=== PATIENT | male | born 1930 | race Caucasian/White ===

== ENCOUNTER 2017-06-12 20:56 | Emergency (ER) | payer MEDICARE ==
--- NOTE | 2017-06-12 22:45 | ED ---
Head Injury - HPI Summary HPI Summary: 87-year-old male presents with head injury today. states that he was a going to close the door and he stumbled and struck his head on the glass window near door. He is on Xarleto. No loss conscious. No nausea and vomiting. No change in vision. No neck pain. No other injury. He had a couple drinks tonight. He normally has an unsteady gait. states he has been acting appropriately. He denies any chest pain or shortness breath. He denies any hip pain. The ambulance was called to get him off the floor because could not lift him off the floor. He has some abrasions to his forehead that were bleeding. He has a large contusion to his forehead. - History Of Current Complaint Chief Complaint: EDHeadInjury Stated Complaint: FALL/HEAD INJURY Time Seen by Provider: 06/12/17 21:37 Pain Intensity: 2 - Allergies/Home Medications Allergies/Adverse Reactions: Allergies Allergy/AdvReac Type Severity Reaction Status Date / Time pravastatin Allergy See Comment Verified 06/12/17 21:02 scallops Allergy Severe Vomiting Uncoded 03/10/16 14:44 PMH/Surg Hx/FS Hx/Imm Hx Endocrine/Hematology History: Reports: Hx Anticoagulant Therapy - Xarelto, Hx Diabetes - Type II; well controlled on medications Cardiovascular History: Reports: Hx Coronary Artery Disease, Hx Pacemaker/ICD, Other Cardiovascular Problems/Disorders - History of DVT's; Heart Disease ( Myopathy) Denies: Hx Angina, Hx Hypercholesterolemia, Hx Hypertension, Hx Myocardial Infarction, Hx Valvular Heart Disease Respiratory History: Reports: Hx Sleep Apnea - current CPAP user, compliant Denies: Hx Asthma, Hx Chronic Obstructive Pulmonary Disease (COPD) History: Reports: Hx Benign Prostatic Hyperplasia Denies: Hx Dialysis, Hx Renal Disease Musculoskeletal History: Reports: Hx Arthritis Sensory History: Reports: Hx Contacts or Glasses, Hx Hearing Aid Opthamlomology History: Reports: Hx Contacts or Glasses - Surgical History Surgery Procedure, Year, and Place: Pacemaker; Bilateral Cataract; Coronary Angiogram; Tonsillectomy Infectious Disease History: No Infectious Disease History: Denies: Traveled Outside the [place] in Last 30 Days - Social History Alcohol Use: Daily Alcohol Amount: 3 glass of wine Substance Use Type: Reports: None Smoking Status (MU): Former Smoker Review of Systems Negative: Fever Negative: Chest Pain Negative: Shortness Of Breath Positive: Headache All Other Systems Reviewed And Are Negative: Yes Physical Exam Triage Information Reviewed: Yes Vital Signs On Initial Exam: Initial Vitals Temp Pulse Resp BP Pulse Ox 98.3 F 81 16 122/58 99 06/12/17 20:59 06/12/17 20:59 06/12/17 20:59 06/12/17 20:59 06/12/17 20:59 Vital Signs Reviewed: Yes Appearance: Positive: Well-Appearing Skin: Positive: Warm, Dry, Other - Hematoma to left side of head, small abrasions to forehead Head/Face: Positive: Normal Head/Face Inspection, Other - Raccoon eyes, ley sign Eyes: Positive: Normal, EOMI, RAISA, Conjunctiva Clear ENT: Positive: Normal ENT inspection, Pharynx normal, TMs normal Respiratory/Lung Sounds: Positive: Clear to Auscultation, Breath Sounds Present Cardiovascular: Positive: Normal, RRR Abdomen Description: Positive: Nontender, Soft Bowel Sounds: Positive: Present Neurological: Positive: Sensory/Motor Intact, Alert, Oriented to Person Place, Time, CN Intact II-III, Finger to Nose - Gail Coma Scale Best Eye Response: 4 - Spontaneous Best Motor Response: 6 - Obeys Commands Best Verbal Response: 5 - Oriented Coma Scale Total: 15 Diagnostics - Vital Signs Vital Signs Temp Pulse Resp BP Pulse Ox 06/12/17 20:59 98.3 F 81 16 122/58 99 - Laboratory Lab Statement: Any lab studies that have been ordered have been reviewed, and results considered in the medical decision making process. - CT head CT Interpretation: No Acute Changes - No hemorrhage frontal scalp hematoma CT Interpretation Completed By: Radiologist neck CT Interpretation: No Acute Changes CT Interpretation Completed By: Radiologist Head Injury Course/Dx Course Of Treatment: 87-year-old male presents with head injury today. states that he was a going to close the door and he stumbled and struck his head on the glass window near door. He is on Xarleto. No loss conscious. No nausea and vomiting. No change in vision. No neck pain. No other injury. He had a couple drinks tonight. He normally has an unsteady gait. states he has been acting appropriately. He denies any chest pain or shortness breath. He denies any hip pain. The ambulance was called to get him off the floor because could not lift him off the floor. He has some abrasions to his forehead that were bleeding. He has a large contusion to his forehead. On exam has hematoma to forehead. Has small abrasions that are oozing. Clean area and place glued on the abrasions. Normal neuro exam. CT brain normal except for hematoma of scalp. Neck normal. We'll have follow-up with primary. Patient understands agrees with plan. - Diagnoses Differential Diagnosis/HQI/PQRI: Concussion Without LOC, Contusion, Intracranial Bleed, Skull Fracture Provider Diagnoses: Head injury, Hematoma of frontal scalp, Fall Discharge - Sign-Out/Discharge Documenting (check all that apply): Discharge - Discharge Plan Condition: Good Disposition: HOME Patient Education Materials: Head Injury (ED) Referrals: Millie Villeda MD [Primary Care Provider] - Additional Instructions: Place ice on area as needed Take Tylenol for headache every 6 hours as needed Follow up with primary within 5 days Return to ED if develop any new or worsening symptoms - Billing Disposition and Condition Condition: GOOD Disposition: HOME
[2017-06-12 23:25] VITALS: BP 123/72
--- NOTE | 2017-06-13 11:19 | RAD ---
Indication: Fall with head injury. Comparison: October 04, 2014 Technique: Noncontrast CT vertex of skull through foramen magnum. Report: Moderate prominence of the cerebral sulci. Proportional enlargement of the ventricles. Patent basal cisterns. 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 Small chronic lacunar infarct involving the LEFT caudate body. Negative for hoover matter white matter obscuration, intra or extra-axial hemorrhage, or mass effect. Small LEFT frontal scalp hematoma. Negative for calvarial or skull base fracture or suspicious focal osseous lesions. Clear paranasal sinuses and mastoid air spaces. IMPRESSION: 1. Small LEFT frontal scalp hematoma. No CT evidence for traumatic brain injury. 2. Involutional change and stigmata of chronic small vessel ischemic disease. Small chronic lacunar infarct involving the LEFT caudate body.
--- NOTE | 2017-06-13 11:26 | RAD ---
INDICATION: Fall. Head injury. COMPARISON: No relevant prior exams available on the [facility] PACS for comparison. TECHNIQUE: Multidetector CT images foramen magnum to lung apices without contrast. Multiplanar reformation. REPORT: 2.0 cm hypodense LEFT thyroid lobe nodule. Normal vertebral alignment accounting for exam positioning without spondylolisthesis or subluxation at any level. Negative for cervical vertebral body or posterior element fracture. Negative for paravertebral hematoma. Multilevel degenerative spondylosis and facet joint osteoarthritis. At C2-C3 uncinate process spurring and facet joint osteoarthritis results in mild RIGHT foraminal stenosis. At C3-C4 there is 1.5 mm degenerative anterolisthesis. Uncinate process spurring and facet joint osteoarthritis results in mild RIGHT and severe LEFT foraminal stenosis. At C4-C5 dorsal disc osteophyte complex results in mild impression on the ventral margin of the thecal sac. Uncinate process spurring and facet joint osteoarthritis results in mild RIGHT and severe LEFT foraminal stenosis. At C5-C6 disc space narrowing is severe. Dorsal disc osteophyte complex results in mild impression on the ventral margin of the thecal sac. Uncinate process spurring and facet joint osteoarthritis results in moderately severe RIGHT foraminal stenosis. At C6-C7 disc space narrowing is severe. Uncinate process spurring and facet joint osteoarthritis results in mild RIGHT and slight LEFT foraminal stenosis. IMPRESSION: 1. No CT evidence for traumatic cervical spine injury. 2. 2.0 cm LEFT thyroid lobe nodule. If not previously performed consider nonemergent follow-up thyroid ultrasound for further characterization. There is no prior thyroid ultrasound on the [facility] PACS.
--- NOTE | 2017-06-14 09:32 | ED ---
Progress - Progress Note Progress Note: Patient's final CT report for cervical spine without contrast reveals incidental finding of a "2 cm left thyroid lobe nodule. If not previously performed consider nonemergent follow-up thyroid ultrasound for further characterization. There is no prior thyroid ultrasound on the [facility]ACS". It does not appear this was discussed during patient's ED visit. Phone call placed and spoke w/ , Janice, listed as person to notify. She reports patient is hard of hearing so relayed update to her. She states she will contact patient's PCP, Dr. Villeda, today to schedule appointment for follow- up. Admits has been has been doing fine since home w/ head injury. No further action at this time. Course/Dx - Course Course Of Treatment: 87-year-old male presents with head injury today. states that he was a going to close the door and he stumbled and struck his head on the glass window near door. He is on Xarleto. No loss conscious. No nausea and vomiting. No change in vision. No neck pain. No other injury. He had a couple drinks tonight. He normally has an unsteady gait. states he has been acting appropriately. He denies any chest pain or shortness breath. He denies any hip pain. The ambulance was called to get him off the floor because could not lift him off the floor. He has some abrasions to his forehead that were bleeding. He has a large contusion to his forehead. On exam has hematoma to forehead. Has small abrasions that are oozing. Clean area and place glued on the abrasions. Normal neuro exam. CT brain normal except for hematoma of scalp. Neck normal. We'll have follow-up with primary. Patient understands agrees with plan. - Diagnoses Provider Diagnoses: Head injury, Hematoma of frontal scalp, Fall Discharge - Sign-Out/Discharge Documenting (check all that apply): Post-Discharge Follow Up - Discharge Plan Condition: Good Disposition: HOME Patient Education Materials: Head Injury (ED) Referrals: Millie Villeda MD [Primary Care Provider] - Additional Instructions: Place ice on area as needed Take Tylenol for headache every 6 hours as needed Follow up with primary within 5 days Return to ED if develop any new or worsening symptoms - Billing Disposition and Condition Condition: GOOD Disposition: HOME
== END 2017-06-12 23:29 | disposition home or self-care (01) ==
LOC: ED 20:56
DX: S09.90XA Unspecified injury of head, initial encounter (principal); S00.93XA Contusion of unspecified part of head, initial encounter; E04.1 Nontoxic single thyroid nodule; W18.00XA Striking against unspecified object with subsequent fall, initial encounter; Y93.9 Activity, unspecified; Y92.9 Unspecified place or not applicable; Z79.01 Long term (current) use of anticoagulants
CPT/HCPCS: 70450; 72125; 99282

== ENCOUNTER 2019-01-22 17:43 | Emergency (ER) | payer MEDICARE ==
--- NOTE | 2019-01-22 18:25 | ED ---
Neurological HPI - HPI Summary HPI Summary: 88 year old M brought in by EMS to [facility] complains of worsening weakness, unsteady gait, and fatigue for several days per . No dizziness, syncope, pain. The patient rates the pain 0/10 in severity. Symptoms aggravated by nothing. Symptoms alleviated by nothing. Per nurse, patient states patient retired 2 years ago and has since been sleeping around 21:00 every night, waking up at 14:00 the next day, and drinking 6 oz wine around 17:00 daily and has been more fatigued. She thinks this has been gradual and there is nothing acute today. She decided to bring him to ED for repeated falls. 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 Onset/Duration: Started days ago, Still Present Timing: Constant Current Severity: None Pain Intensity: 0 Pain Scale Used: 0-10 Numeric Aggravating: Nothing Alleviating: Nothing Associated Signs and Symptoms: Positive: Negative - dizziness, syncope, pain - Allergy/Home Medications Allergies/Adverse Reactions: Allergies Allergy/AdvReac Type Severity Reaction Status Date / Time pravastatin Allergy See Comment Verified 01/22/19 18:43 scallops Allergy Severe Vomiting Uncoded 01/22/19 18:43 Home Medications: Home Medications Aspirin 81 mg CHEW TAB* [Aspirin Low Dose TAB*] 81 mg PO DAILY 01/22/19 [ History Confirmed 01/22/19] PMH/Surg Hx/FS Hx/Imm Hx Endocrine/Hematology History: Reports: Hx Anticoagulant Therapy - Xarelto, Hx Diabetes Denies: Hx Anemia Cardiovascular History: Reports: Hx Coronary Artery Disease, Hx Pacemaker/ICD, Other Cardiovascular Problems/Disorders - History of DVT's; Heart Disease ( Myopathy) Denies: Hx Angina, Hx Hypercholesterolemia, Hx Hypertension, Hx Myocardial Infarction, Hx Valvular Heart Disease Respiratory History: Reports: Hx Sleep Apnea - current CPAP user, compliant Denies: Hx Asthma, Hx Chronic Obstructive Pulmonary Disease (COPD) GI History: Denies: Hx Jaundice History: Reports: Hx Benign Prostatic Hyperplasia Denies: Hx Dialysis, Hx Renal Disease Musculoskeletal History: Reports: Hx Arthritis Sensory History: Reports: Hx Contacts or Glasses, Hx Hearing Aid Opthamlomology History: Reports: Hx Contacts or Glasses - Surgical History Surgery Procedure, Year, and Place: Pacemaker; Bilateral Cataract; Coronary Angiogram; Tonsillectomy Infectious Disease History: No Infectious Disease History: Denies: Traveled Outside the [place] in Last 30 Days - Family History Known Family History: Positive: Cardiac Disease - [place], Other - Parkinson's, CVA - Social History Alcohol Use: Daily Alcohol Amount: 2 glasses of wine Substance Use Type: Reports: None Smoking Status (MU): Former Smoker Review of Systems Positive: Fatigue Neurological: Negative - Dizziness, Other - unsteady gait Positive: Weakness. Negative: Syncope All Other Systems Reviewed And Are Negative: Yes Physical Exam - Summary Physical Exam Summary: Constitutional: Elderly, Alert. (-) Distressed Skin: Warm, Dry HENT: Normocephalic; Atraumatic Eyes: Conjunctiva normal Neck: Musculoskeletal ROM normal neck. (-) JVD, (-) Nuchal rigidity Cardio: Rhythm regular, rate normal, Heart sounds normal; Intact distal pulses; Radial pulses are 2+ and symmetric. (-) Murmur Pulmonary/Chest wall: Effort normal. (-) Respiratory distress, (-) Wheezes, (-) Rales, Pacemaker of left chest wall Abd: Soft. (-) Tenderness, (-) Distension, (-) Guarding, (-) Rebound Musculoskeletal: (-) Edema Lymph: (-) Cervical adenopathy Neuro: Fine tremors of upper extremities, alert and oriented x3, CN 2-12 grossly intact, no dysmetria. Has a shuffling gait and ambulates well with walker which is baseline Psych: Mood and affect Normal GCS: 15 Triage Information Reviewed: Yes Vital Signs On Initial Exam: Initial Vitals Temp Pulse Resp BP Pulse Ox 98.4 F 70 19 129/67 97 01/22/19 17:51 01/22/19 17:51 01/22/19 17:51 01/22/19 17:51 01/22/19 17:51 Vital Signs Reviewed: Yes Procedures - Sedation Patient Received Moderate/Deep Sedation with Procedure: No Diagnostics - Vital Signs Vital Signs Temp Pulse Resp BP Pulse Ox 01/22/19 17:58 70 10 111/59 96 01/22/19 17:54 70 6 111/59 96 01/22/19 17:51 98.4 F 70 19 129/67 97 - Laboratory Result Diagrams: 01/22/19 19:27 11/03/19 19:27 Lab Statement: Any lab studies that have been ordered have been reviewed, and results considered in the medical decision making process. - CT Brain CT Interpretation Completed By: Radiologist Summary of CT Findings: No acute intracranial abnormality. No interval change. ED physician has reviewed this report. - EKG 8 Cardiac Rate: NL - 70 bpm Summary of EKG Findings: An EKG at 18:38 reveals rate 70 BPM, appears to be atrial flutter, nml axis, nml intervals. No STEMI. No acute changes. Re-Evaluation - Re-Evaluation First Eval Re-Evaluation Time: 19:25 Comment: states she called EMS today because she is concerned that patient has been decompensating for 2 years. states he has seen neuro, PCP, gait/ balance therapist. states pt has had 4 falls in the past several days. states that today she was unable to get him up and he was unsteady to his feet Second Eval Re-Evaluation Time: 20:26 Change: Improved Comment: after discussion with Dr. Duggan, we decided to ambulate patient with walker and he ambulated safety in the ED. 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 - labs: no e/o electrolyte abnormalities or anemia. trop neg, EKG baseline. CT head w/o acute process. - appears that he has decompensated gradually. interested in PT will discuss w hospitalist inpatient vs outpatient PT. - Diagnoses Provider Diagnoses: Fatigue, Gait abnormality - Physician Notifications Discussed Care Of Patient With: Osman Duggan Time Discussed With Above Provider: 19:59 Instructed by Provider To: Admit As Inpatient Discharge ED - Sign-Out/Discharge Documenting (check all that apply): Patient Departure - Discharge - Discharge Plan Condition: Stable Disposition: HOME Patient Education Materials: Fall Prevention for Older Adults (ED) Referrals: Millie Villeda MD [Primary Care Provider] - Enio Mcmahon MD [Medical Doctor] - Additional Instructions: You were seen in the emergency department for frequent falls. Your CT scan did not show any abnormalities. We advise you follow-up with a physical therapist in our neurologist. If any studies were not completed at the time of discharge you will be called with the relevant results. Please follow up with your primary care doctor in next 2-3 days and return to emergency department for worsening or concerning symptoms, continued falls, confusion. It was a pleasure taking care of you today. - Billing Disposition and Condition Condition: STABLE Disposition: Home - Attestation Statements Document Initiated by Apoorva: Yes Documenting Scribe: Catia Todd Provider For Whom Apoorva is Documenting (Include Credential): Ivis Wong MD Scribe Attestation: I, Catia Todd, scribed for Ivis Wong MD on 01/23/19 at 1255. Scribe Documentation Reviewed: Yes Provider Attestation: The documentation as recorded by the Catia finn accurately reflects the service I personally performed and the decisions made by , Ivis Wong MD Status of Scribe Document: Viewed
[2019-01-22] MEDS ORDERED: NS 0.9% 1000 ML** 1,000 ML IV ONE (18:51)
--- OUTSIDE RECORDS SUMMARY | 2019-01-22 18:55 | XMS REPORT | Summary of Care ---
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 Reason for Visit Reason Comments Check Up Encounter Details Date Type Department Care Team Description 12/26/2018 Office Visit Sarmad Villeda, Controlled type 2 diabetes mellitus with diabetic neuropathy, without long-term current use of insulin (HCC) (Primary Dx); Practice Millie Martinez MD Medication monitoring encounter; [address] [facility] Need for vaccination; [place] [address] [place] [address] Fatigue, unspecified type; [phone] History of anemia; Left sided lacunar infarction (HCC) Allergies Active Allergy Reactions Severity Noted Date Comments Statins Musculoskeletal 01/20/2016 documented as of this encounter (statuses as of 12/27/2018) Medications Medication Sig Dispensed Refills Start Date End Date Status doxazosin (CARDURA) Take 4 mg by 0 Active 4 MG PO TABS mouth DAILY. Ordered by uroligist digoxin (LANOXIN, Take 0.125 mg 0 Active DIGITEK) 0.125 MG by mouth THREE Oral Tab TIMES PER WEEK. 1 tab 3 times weekly finasteride Take 5 mg by 0 Active (PROSCAR) 5 MG Oral mouth DAILY. Tab Blood Glucose 1. Brand: [employer] Contour 100 Strip 3 06/15/2014 Active Monitoring Suppl 2. Dx: 250.00 (BLOOD GLUCOSE TEST 3. Test blood glucose once daily STRIPS STRP) Blood Glucose by Does not 1 Kit 0 08/23/2014 Active Monitoring Suppl apply route. (BLOOD GLUCOSE Brand: Etta METER) Does not Contour Next apply Kit Dx: 250.00 Test Blood Glucose: Once/day Multiple Vitamin Take by mouth. 0 Active (MULTI VITAMIN MENS PO) Cyanocobalamin Take 1,000 mcg 100 Tab 4 02/03/2018 Active (B-12) 1000 MCG Oral by mouth DAILY. TabIndications: Controlled type 2 diabetes mellitus with diabetic neuropathy, without long-term current use of insulin (HCC), Fatigue, unspecified type aspirin (ECOTRIN) 81 Take 1 Tab by 30 Tab 0 06/03/2018 Active MG Oral Tab EC mouth DAILY. glimepiride (AMARYL) TAKE 1/2 TABLET 45 Tab 2 10/17/2018 Active 1 MG Oral BY MOUTH EVERY TabIndications: MORNING. Controlled type 2 diabetes mellitus with diabetic neuropathy, without long-term current use of insulin (HCC) metFORMIN Take 1 Tab by 90 Tab 3 02/03/2018 Discontinued (GLUCOPHAGE) 500 MG mouth DAILY. 9 Oral TabIndications: New lower dose Controlled type 2 diabetes mellitus with diabetic neuropathy, without long-term current use of insulin (HCC) documented as of this encounter (statuses as of 12/27/2018) Active Problems Problem Noted Date CHINMAY treated with BiPAP 09/15/2018 Left sided lacunar infarction 08/05/2017 Statin intolerance 08/05/2017 Thyroid nodule 08/05/2017 Last Assessment & Plan: Benign on bx 08/2017 Parkinsonian features 06/18/2017 Tendonitis of left rotator cuff 10/08/2014 Atrial fibrillation 02/02/2014 CAD (coronary artery disease) 10/04/2008 Overview: 10/04/08 30-40% LAD, RCA 50-60% Cardiomyopathy 10/04/2008 Overview: Non ischemic LBBB (left bundle branch block) 10/04/2008 Hypertrophy of prostate without urinary obstruction and other lower 01/13/2007 urinary tract symptoms (LUTS) Controlled type 2 diabetes mellitus with neurologic complication, without 09/2005 long-term current use of insulin Personal history of venous thrombosis and embolism 03/22/2000 Vascular parkinsonism Overview: Sees Dr. Husain Diabetes mellitus with neuropathy Mild cognitive impairment, so stated Polyneuropathy documented as of this encounter (statuses as of 12/27/2018) Resolved Problems Problem Noted Date Resolved Date Long-term (current) use of anticoagulants 11/02/2016 09/15/2018 Osteoarthrosis, unspecified whether generalized or 01/13/2007 03/11/2012 localized, lower leg documented as of this encounter (statuses as of 12/27/2018) Immunizations Name Administration Dates Next Due Influenza (IM) Preservative Free 12/13/2017, 01/02/2010 Influenza Vaccine 65 Yrs + 12/26/2018 Influenza Vaccine High Dose 01/13/2016 Influenza Virus Vaccine - Whole 01/11/2001 PNEUMOCOCCAL POLYSACCHARIDE VACCINE 02/02/2006, 02/28/2001 Pneumococcal Conjugate(13 Valent) 01/20/2016 documented as of this encounter Social History Tobacco Use Types Packs/Day Years Used Date Former Smoker 20 Quit: 1987 Smokeless Tobacco: Never Used Comments: 1 cigar /day until 1987 Alcohol Use Drinks/Week oz/Week Comments Yes 7 Glasses of wine 7.0 glass of wine 3-4 x weekly 0 Standard drinks or equivalent Sex Assigned at Date Recorded Not on file Job Start Date Occupation Industry Not on file Not on file Not on file Travel History Travel Start Travel End No recent travel history available. documented as of this encounter Last Filed Vital Signs Vital Sign Reading Time Taken Comments Blood Pressure 118/60 12/26/2018 11:13 AM EDT Pulse 68 12/26/2018 11:13 AM EDT Temperature - - Respiratory Rate - - Oxygen Saturation 98% 12/26/2018 11:13 AM EDT Inhaled Oxygen Concentration - - Weight 80.7 kg (178 lb) 12/26/2018 11:13 AM EDT Height 185.4 cm (6' 1") 12/26/2018 11:13 AM EDT Body Mass Index 23.48 12/26/2018 11:13 AM EDT documented in this encounter Patient Instructions Patient InstructionsMillie Villeda MD - 12/26/2018 11:00 AM EDTYour diabetes control is great. Your weight is down. Given this, please stop metformin and repeat diabetes tests in 3 months. Continue glipizide. You are sleeping more: I will check a CBC and B12 level today. I will send you results. Stay well hydrated. We gave you a influenza vaccine today documented in this encounter Progress Notes Millie Villeda MD - 12/26/2018 11:00 AM EDT Nursing Notes: Nely DumontzaJUAN F samuel 12/26/2018 11:34 AM Signed Chief Complaint Patient presents with Check Up Gauge Checker: Dr. Lopez Pacemaker replaced, 04/17/16, Dr.Levine Dinorah. Neurologist: Dr. Husain, released Physical therapist: Lainey Adam, [facility] Urologist: Ronald SUBJECTIVE: Boogie Solis is an 88-y.o. male who presents for evaluation and treatment of Type 2 diabetes mellitus. He reports today he is doing well. Here with his . His post acute care registered nurse stopped his anticoagulant due to his falls. He has fallen several times since last visit. He will now use a walker. His reports he sleeps a lot, will sleep in until 2 pm. However he is up using the bathroom a lot at night. He does not drink much eater, perhaps one a day. Recent laboratory tests reviewed. Family history: negative for diabetes. Previous treatment modalities employed include diet and oral agents. Current treatment includes diet and oral agents. , neurologist, tried him on Aricept int the past: Stopped it due to diarrhea. He did not feel he has Parkinson's at the time he was seen. He feels it is neuropathy. He has frequent falls. He declines Physical Therapy referral.. He still uses walking sticks rather than a walker most of the time. He is off blood thinners due to the falls. CT cervical spine 06/12/17: no CT evidence of spine injury, 2 cm left thyroid nodule, further evaluation recommended. Multilevel degenerative changes. CT head WO 06/12/17: Small left frontal scalp hematoma, no traumatic brain injury or IC bleed, chronic small vessel disease, small chronic left lacunar infarct of left caudate body Thyroid US 06/16/17: Multiple thyroid nodules are present. FNA of the solid nodule on theleft could be considered. (NOA 2015). If FNA is not performed follow-up ultrasound in one year is recommended. He had a FNA 09/09/17, benign Current monitoring regimen: home blood tests - rarely-none Home blood sugar records: none recently Home BP: none recently Denies acute concerns today. Lab Results Component Value Date GLYCO 6.4 (H) 12/16/2018 GLYCO 6.8 (H) 09/08/2018 GLYCO 6.9 (H) 05/06/2018 Lab Results Component Value Date NA 143 12/16/2018 K 4.0 12/16/2018 CL 107 12/16/2018 CO2 26 12/16/2018 GLUCOSE 135 (H) 12/16/2018 BUN 20 12/16/2018 CREATININE 0.9 12/16/2018 CALCIUM 8.8 12/16/2018 TP 6.6 12/16/2018 ALBUMIN 3.9 12/16/2018 AST 22 12/16/2018 ALT 21 12/16/2018 ALK 50 12/16/2018 TBILI 0.4 12/16/2018 EGFR >60 12/16/2018 Lab Results Component Value Date CHOL 176 12/16/2018 TRIG 93 12/16/2018 HDL 36 (L) 12/16/2018 LDL 121 (H) 12/16/2018 LDLHDLRATIO 3.4 12/16/2018 CHOLHDLRATIO 4.9 12/16/2018 Patient Active Problem List Diagnosis Controlled type 2 diabetes mellitus with neurologic complication, without long-term current use of insulin (HCC) Personal history of venous thrombosis and embolism Hypertrophy of prostate without urinary obstruction and other lower urinary tract symptoms (LUTS) CAD (coronary artery disease) Cardiomyopathy (HCC) LBBB (left bundle branch block) Atrial fibrillation (HCC) Tendonitis of left rotator cuff Vascular parkinsonism (HCC) Diabetes mellitus with neuropathy (HCC) Mild cognitive impairment, so stated Polyneuropathy Parkinsonian features Left sided lacunar infarction (HCC) Statin intolerance Thyroid nodule CHINMAY treated with BiPAP Last eye exam: 12/03/17 [place] Last microalbumin: 09/15/18 Last microfilament foot exam: 09/15/18 Immunizations: Immunization History Administered Date(s) Administered Influenza (IM) Preservative Free 01/02/2010, 12/13/2017 Influenza Vaccine High Dose 01/13/2016 Influenza Virus Vaccine - Whole 01/11/2001 PNEUMOCOCCAL POLYSACCHARIDE VACCINE 02/28/2001, 02/02/2006 Pneumococcal Conjugate(13 Valent) 01/20/2016 Pended Date(s) Pended Influenza Vaccine 65 Yrs + 12/26/2018 Influenza shot done at [facility], regular influenza vaccine. Diabetic complications: peripheral neuropathy and cardiovascular disease Current Outpatient Medications: aspirin (ECOTRIN) 81 MG Oral Tab EC, Take 1 Tab by mouth DAILY., Disp: 30 Tab, Rfl: 0 Blood Glucose Monitoring Suppl (BLOOD GLUCOSE METER) Does not apply Kit , by Does not apply route. Brand: [employer] Contour Next Dx: 250.00 Test Blood Glucose: Once/day, Disp: 1 Kit, Rfl: 0 Blood Glucose Monitoring Suppl (BLOOD GLUCOSE TEST STRIPS STRP), 1. Brand: [employer] Contour2. Dx: 250.00 3. Test blood glucose once daily, Disp: 100 Strip, Rfl: 3 Cyanocobalamin (B-12) 1000 MCG Oral Tab, Take 1,000 mcg by mouth DAILY. , Disp: 100 Tab, Rfl:4 digoxin (LANOXIN, DIGITEK) 0.125 MG Oral Tab, Take 0.125 mg by mouth THREE TIMES PER WEEK. 1tab 3 times weekly, Disp: , Rfl: doxazosin (CARDURA) 4 MG PO TABS, Take 4 mg by mouth DAILY. Ordered by uroligist, Disp: , Rfl: finasteride (PROSCAR) 5 MG Oral Tab, Take 5 mg by mouth DAILY., Disp: , Rfl: glimepiride (AMARYL) 1 MG Oral Tab, TAKE 1/2 TABLET BY MOUTH EVERY MORNING., Disp: 45 Tab, Rfl: 2 Multiple Vitamin (MULTI VITAMIN MENS PO), Take by mouth., Disp: , Rfl: Allergies Allergen Reactions Statins Musculoskeletal Past Medical History: Diagnosis Date Anticoagulated by anticoagulation treatment Atrial fibrillation (HCC) CAD (coronary artery disease) 10/04/2008 10/04/08 30-40% LAD, RCA 50-60% Cardiac rhythm disorder or disturbance or change h/o sick sinus syndrome, has pacemaker Cardiomyopathy (HCC) 10/04/2008 Non ischemic Congestive heart failure (HCC) cardiomyopathy Coronary artery disease sees Dr. Lopez: 10/04-LAD 30% to 40%, RCA 50-60% Diabetes mellitus with neuropathy (HCC) DVT (deep venous thrombosis) (HCC) bilateral legs, 2000 right, 2007 left Elevated prostate specific antigen (PSA) 03/03/2007 GERD (gastroesophageal reflux disease) occasional History of nuclear stress test 03/13/2016 mild hypokinesia of septum, ormal LVEF of 64%, no evidence of ischemia. Hx of CT scan of abdomen 03/10/2016 CTA abd/pelvis: no sig. 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 no hydronephrosis. Hypertrophy of prostate without urinary obstruction and other lower urinary tract symptoms (LUTS) 01/13/2007 LBBB (left bundle branch block) 10/04/2008 Mild cognitive impairment, so stated Nerve disease, peripheral polyneuropathy Osteoarthrosis, unspecified whether generalized or localized, lower leg 01/13/2007 Pacemaker Parkinson disease (HCC) Personal history of venous thrombosis and embolism 03/22/20002000 and left early 2007 Polyneuropathy Sleep apnea on Bipap since 2010 Type II or unspecified type diabetes mellitus without mention of complication, not stated as uncontrolled 09/25/2005 Vascular parkinsonism (HCC) Sees Dr. Husain Past Surgical History: Procedure Laterality Date BALO ANGIOP ICRA PRQ 09/2015 CARDIAC CATH 09/27 CATARACT EXTRACTION NEC INSERTION PACEMAKER FLOUROSCOPY MO INSER DALAL PACER XVENOUS ATRIAL TONSILLECTOMY Family History Problem Relation Age of Onset Heart Father age 46 first mi, at 66 Parkinson's Mother Stroke Brother Stroke Child ministrokes No Known Problems Child Fibromyalgia Child Social History Tobacco Use Smoking status: Former Smoker Years: 20.00 Last attempt to quit: 1987 Years since quittin.7 Smokeless tobacco: Never Used Tobacco comment: 1 cigar /day until 1987 Substance Use Topics Alcohol use: Yes Alcohol/week: 7.0 standard drinks Types: 7 Glasses of wine per week Comment: glass of wine 3-4 x weekly Review Of Systems Ears/Nose/Throat: negative Respiratory: Denies shortness of breath or URI symptoms Cardiovascular: negative for chest pain or pressure, no edema Gastrointestinal: normal bowel movements, no bloody or black stool Genitourinary: negative for dysuria Neurologic: numb feet chronically Hematologic/Lymphatic/Immunologic: negative for unexpected weight loss, but is eating less and has lost weight; Eats 2 meals a day He has a walker, will only use it inside to exercise/walk. Uses a cane sometimes. Uses a walking stick at home, now a walker when not home. OBJECTIVE: BP 118/60 (BP Location: Right arm, Patient Position: Sitting) | Pulse 68 | Ht 6' 1" (1.854 m) | Wt 178 lb (80.7 kg) | SpO2 98% | BMI 23.48 kg/m General appearance: alert, no distress, oriented times 3 Skin: Skin color, texture, turgor normal. No rashes or lesions. Oropharynx: negative findings: lips normal without lesions Neck: Neck supple. No adenopathy. Thyroid symmetric, normal size. Carotids 4/4 without bruits. Lungs:. Lungs clear with good aeration. Chest symmetrical. Normal breath sounds bilaterally. Heart: PMI normal. No lifts, heaves, or thrills. RRR. Abdomen: Abdomen soft, non-tender, normal bowel sounds Extremities: Extremities without deformities, edema, or skin discoloration. Station and gait unsteady Lips appear dry ASSESSMENT/PLAN: ICD-9-CM ICD-10-CM 1. Controlled type 2 diabetes mellitus with diabetic neuropathy, without long- term current use of insulin (HCC) 250.60 E11.40 GLYCOHEMOGLOBIN A1C 357.2 BASIC METABOLIC PANEL 2. Medication monitoring encounter V58.83 Z51.81 3. Need for vaccination V05.9 Z23 MO FLU VACCINE 65 YRS + ADMINISTRATION VACCINE SINGLE 4. Fatigue, unspecified type 780.79 R53.83 5. History of anemia V12.3 Z86.2 CBC NO DIFFERENTIAL VITAMIN B12 / FOLATE VITAMIN B12 / FOLATE CBC NO DIFFERENTIAL Doing well on current medications. Diabetes is well controlled on lower metformin dose a nd glimepiride I recommend we stop metformin since he does not stay hydrated and A1C is down No recent med changes with Dr Lopez. Repeat laboratory tests and follow up in 3 months. Rx: PARKER? No, hypotensive. Statin? unable Metformin? Yes Reviewed concepts of diabetes self-management stressing the primary role of the patient in monitoring and maintaining control of Diabetes. Recommended diet. Follow up every 3 months is recommended, sooner as needed. Patient Instructions Your diabetes control is great. Your weight is down. Given this, please stop metformin and repeat diabetes tests in 3 months. Continue glipizide. You are sleeping more: I will check a CBC and B12 level today. I will send you results. Stay well hydrated. We gave you a influenza vaccine today Author: Millie Villeda MD 12/26/2018 17:54 documented in this encounter Plan of Treatment Date Type Specialty Care Team Description 04/03/2019 Lab Internal Medicine 04/10/2019 Office Visit [facility] Millie Villeda MD [address] [place] [address] [phone] Name Type Priority Associated Diagnoses Order Schedule ADMINISTRATION VACCINE Procedures Routine Need for vaccination Ordered: SINGLE 12/26/2018 GLYCOHEMOGLOBIN A1C Lab Routine Controlled type 2 Expected: diabetes mellitus 03/28/2019 with diabetic (Approximate), neuropathy, without Expires: long-term current use 12/27/2019 of insulin ([facility]) BASIC METABOLIC PANEL Lab Routine Controlled type 2 Expected: diabetes mellitus 03/28/2019 with diabetic (Approximate), neuropathy, without Expires: long-term current use 12/27/2019 of insulin (HCC) Health Maintenance Due Date Last Done Comments ZOSTER IMMUNIZATION SERIES 1982 (1 of 2) FALL RISK ASSESSMENT 1997 HEMOGLOBIN A1C 06/16/2019 12/16/2018, 09/08/2018, 05/06/2018, Additional history exists DEPRESSION SCREENING 09/16/2019 09/15/2018 FOOT EXAM 09/16/2019 09/15/2018, 09/15/2018, 09/15/2018, Additional history exists URINE MICROALBUMIN 09/16/2019 09/15/2018, 11/05/2017, 07/20/2016, Additional history exists Diabetic Eye Exam 12/04/2019 12/03/2017, 12/01/2016, 10/07/2015 PNEUMOCOCCAL 65+YRS Completed 01/20/2016, 02/02/2006, 02/28/2001 HPV IMMUNIZATION SERIES Aged Out No longer eligible based on patient's age to complete this topic MENINGOCOCCAL VACCINE IMM Aged Out No longer eligible based on patient's age to complete this topic documented as of this encounter Goals Goal Patient Goal Associated Recent Patient-Stated? Author Type Problems Progress Glycohemoglobin A1c Diabetes 6.4 No [place], < 7.0 (12/16/2018 Millie Martinez, 9:57 AM EDT) Note: This is an individualized treatment (diabetes control, HgbA1C) goal for Boogie Solis: Displayed above is your progress towards your HgbA1C goal. Your goal is shown above (on the left); your most recent HgbA1C is shown on the right. Note that lower numbers are better. Keep immunizations current Lifestyle Millie Jeter MD Note: This is an individualized lifestyle goal for Boogie Solis: Please be sure to keep up-to-date on recommended immunizations. For example, this would include a yearly influenza vaccine. Immunization status can be seen by looking at the Health Maintenance sections of your e[facility], Plan of Care, and any After Visit Summaries. Take all prescribed medications as Self-management No Millie Villeda MD directed Note: This is an individualized self-management goal for Boogie Solis: Please take all prescribed medications as directed. 1. Do not skip doses. If you cannot afford your medications, talk with your doctor. 2. Use a pill reminder system such as a pill box if needed. Your pharmacist can help you with this. 3. Contact your Pharmacy 5 days before your medication runs out. If you cannot take your medications for any reasons, talk with your doctor. 4. Please bring all of your medication bottles and inhalers (or a list of all your medications/inhalers) with you to every visit. Potential barriers to meeting all of your care plan goals will continue to be addressed on an ongoing basis. documented as of this encounter Procedures Procedure Name Priority Date/Time Associated Comments Diagnosis VITAMIN B12 / FOLATE Routine 12/26/2018 12:25 History of anemia Results for this PM EDT procedure are in the results section. CBC NO DIFFERENTIAL Routine 12/26/2018 12:25 History of anemia Results for this PM EDT procedure are in the results section. documented in this encounter Results VITAMIN B12 / FOLATE (12/26/2018 12:25 PM EDT) Vitamin B12 793 239 - 931 pg/ml [facility] Folate >20.0 (H) 2.8 - 20.0 ng/ml [facility] Specimen Blood - Blood specimen (specimen) Performing Organization Address City/State/Zipcode Phone Number [facility] [address] [place] [address] CBC NO DIFFERENTIAL (12/26/2018 12:25 PM EDT) WBC Count 5.16Comment: 4.23 - 9.07 [facility] Methodology was K/uL [facility] changed 03/24/2018. Please note updated reference range and units. RBC Count 4.34 4.30 - 5.89 [facility] M/UL [facility] Hemoglobin 13.9 13.7 - 17.5 [facility] g/dL [facility] Hematocrit 42.2 40.1 - 51.0 % [facility] MCV 97.2 (H) 79.0 - 92.2 [facility] FL [facility] MCH 32.0 25.7 - 32.2 [facility] PG [facility] MCHC 32.9 32.3 - 36.5 [facility] g/dL [facility] Platelet Count 148 (L) 163 - 337 [facility] K/uL [facility] MPV 10.1 9.4 - 12.4 [place] [facility] RDW 13.1 11.6 - 14.4 % [facility] Specimen Blood - Blood specimen (specimen) Performing Organization Address City/State/Zipcode Phone Number [facility] [address] [place] [address] documented in this encounter Visit Diagnoses Diagnosis Controlled type 2 diabetes mellitus with diabetic neuropathy, without long-term current use of insulin (HCC) - Primary Medication monitoring encounter Encounter for therapeutic drug monitoring Need for vaccination Need for prophylactic vaccination and inoculation against unspecified single disease Fatigue, unspecified type History of anemia Personal history of diseases of blood and blood-forming organs Left sided lacunar infarction (HCC) Unspecified cerebral artery occlusion with cerebral infarction documented in this encounter Insurance Payer Benefit Plan / Subscriber ID Effective Dates Phone Address Type Group MEDICARE MEDICARE PART A xxxxxxxxxxx 1997-Present Medicare & B [facility] [employer] [facility] xxxxxxxxxxx 2016-Present [facility] [employer] Guarantor Name Account Type Relation to Date of Phone Billing Patient Address Boogie Solis Personal/Family [phone] (Home) [place], [place] [phone] (Work) documented as of this encounter
--- OUTSIDE RECORDS SUMMARY | 2019-01-22 18:55 | XMS REPORT | Continuity of Care Document ---
:1930 External Reference #:[id number] Author Name Kelsey Layton N.P. (transmitted by agent of provider Joann Souza) Address [address] [place] [address] Care Team Providers Name Role Phone Masood Jacques DO - Clinical Cardiac Care Team Information [employer] [phone] Electrophysiology Millie Villeda MD - Care Team Information [employer] Family Medicine Problems Active Problems Provider Date Coronary arteriosclerosis Ravi Lopez M.D. Onset: 10/07/2011 Mitral valve disorder Ravi Lopez M.D. Onset: 10/07/2011 Sleep disorder Ravi Lopez M.D. Onset: 10/07/2011 Sinus node dysfunction Ravi Lopez M.D. Onset: 04/15/2012 Cardiac pacemaker in situ Ravi Lopez M.D. Onset: 04/15/2012 Obstructive sleep apnea syndrome Ravi Lopez M.D. Onset: 08/18/2012 Atrial fibrillation HORACE Metzger Onset: 07/05/2013 Social History Type Date Description Comments Sex Unknown Tobacco Use Start: Unknown smoked cigars and pipes-smoked for 20 to 25 years-quit 25 years ago ETOH Use consumes 1-2 glasses of wine per day Tobacco Use Start: Unknown End: Patient is a former Unknown smoker Recreational Drug Use Denies Drug Use Smoking Status Reviewed: 12/06/18 Patient is a former smoker Exercise Type/Frequency Does not exercise Allergies, Adverse Reactions, Alerts Active Allergies Reaction Severity Comments Date Pravachol myalgias at 20 mg 05/06/2011 Inactive Allergies NKDA 10/18/2009 Medications Active Medications SIG Qnty Indications Ordering Provider Date Aspirin 81 1 by mouth every I44.1 Ravi Lora 05/31/2018 81mg Tablets day Drew Lopez DR Digoxin 1 by mouth 180tabs Ravi Lora 05/01/2014 125mcg Tablets mondays, Drew Lopez wednesdays, fridays (reduced 10/01/16) Doxazosin Mesylate 1 po qd 90tabs Unknown 4mg Tablets Metformin HCL 1 tablet po bid 180tabs Unknown 500mg Tablets Finasteride 1 po qd 90tabs Unknown 5mg Tablets Glimepiride Take 1/2 Tablet Unknown 1mg Tablets By Mouth Every Morning. Multivitamin Adult 1 by mouth every Unknown day Tablets Immunizations Description No Information Available Vital Signs Date Vital Result Comment 12/06/2018 10:03am Height 73 inches 6'1" Weight 176.00 lb Heart Rate 82 /min BP Systolic Sitting 96 mmHg Rue reg cuff BP Diastolic Sitting 48 mmHg Rue reg cuff BP Systolic Standing 96 mmHg Rue reg cuff BP Diastolic Standing 46 mmHg Rue reg cuff Respiratory Rate 13 /min BMI (Body Mass Index) 23.2 kg/m2 Ejection Fraction 55-60% ECHO 10/07/2017 05/31/2018 10:12am Height 73 inches 6'1" Weight 191.00 lb wih shoes Heart Rate 76 /min BP Systolic Sitting 126 mmHg BP Diastolic Sitting 60 mmHg BMI (Body Mass Index) 25.2 kg/m2 Ejection Fraction 55-60% 10/07/17 echo Results Description No Information Available Procedures Date Code Description Status 11/01/2018 40865 Pace Maker Eval W/Iterative Adjustment Multiple Lead Completed Pacemaker 11/01/2018 57777 Pace Maker Eval W/Iterative Adjustment Multiple Lead Completed Pacemaker 07/21/2018 74117 Pace Maker Eval W/Iterative Adjustment Multiple Lead Completed Pacemaker 07/21/2018 00008 Pace Maker Eval W/Iterative Adjustment Multiple Lead Completed Pacemaker Medical Devices Description No Information Available Encounters Type Date Location Provider Dx Diagnosis Office Visit 12/06/2018 [facility] Kelsey Layton, Z95.0 Presence of 10:00a Of [facility] 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 Calin, N.P. 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 Calin, N.P. 12/06/2018 I42.9 Cardiomyopathy, unspecified Kelsey S. Foster, N.P. 12/06/2018 I48.0 Paroxysmal atrial fibrillation Kelsey S. Calin, N.P. 12/06/2018 I34.0 Nonrheumatic mitral (valve) insufficiency Kelsey S. Calin, N.P. 12/06/2018 R53.83 Other fatigue Kelsey S. Calin, N.P. 11/01/2018 Z95.0 Presence of cardiac pacemaker Ravi Lopez M.D. 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 07/21/2018 Z95.0 Presence of cardiac pacemaker Ica Pacer Schedule 07/21/2018 I42.9 Cardiomyopathy, unspecified Ica Pacer Schedule 07/21/2018 I48.0 Paroxysmal atrial fibrillation Ica Pacer Schedule Plan of Treatment Future Appointment(s):02/01/2019 2:00 pm - Traveling ECHO 1 at [facility]02/01/2019 1:00 pm - Ica Pacer Schedule at [facility]12/06/2018 - Kelsey Layton, N.P.Z95.0 Presence of cardiac odihbsykuO95.1 Atrioventricular block, second qcosrtV93.9 Cardiomyopathy, unspecifiedNew Orders :Echocardiogram, Scheduled: 02/01/19Follow up:PO 01/2019 OV 6mo JFMRecommendations:If heart function ok, I will recommend increasing hydration and adding salt to diet.I48.0 Paroxysmal atrial fibrillationRecommendations: afib burden about the sameI34.0 Nonrheumatic mitral (valve) [id number] Other fatigue Functional Status Description No Information Available Mental Status Description No Information Available Referrals Description No Information Available
[2019-01-22 19:35] LABS: ABS Monocytes 0.8 10^3/ul (0-0.8); ABS Neutrophils 6.9 10^3/ul (1.5-7.7); Eosinophil % 0.2 %; Hematocrit 38 % (42-52); Hemoglobin 12.7 g/dL (14.0-18.0); Lymphocyte % 11.4 %; Mean Corpuscular HGB Conc 33 g/dL (31-36); Mean Corpuscular Hemoglobin 33 pg (27-31); Mean Corpuscular Volume 98 fL (80-94); Mean Platelet Volume 7.9 fL (7.4-10.4); Nucleated Red Blood Cells % 0.1; Platelet Count 115 10^3/uL (150-450); Red Blood Count 3.88 10^6 /uL (4.18-5.48); Red Cell Distribution Width 13 % (10-15); White Blood Count 8.7 10^3/uL (3.5-10.8)
[2019-01-22 19:40] LABS: INR 1.23 (0.82-1.09)
[2019-01-22 19:49] LABS: Albumin 3.4 g/dL (3.2-5.2); Albumin/Globulin Ratio 1.5 (1-3); BUN/Creatinine Ratio 23.4 (8-20); Calcium 8.3 mg/dL (8.6-10.3); EGFR African American 92.1 (>60); EGFR Non-African American 76.1 (>60); Globulin 2.2 g/dL (2-4); Potassium 4.2 mmol/L (3.5-5.0); Total Bilirubin 1.1 mg/dL (0.2-1.0); Total Protein 5.6 g/dL (6.4-8.9)
[2019-01-22 20:46] VITALS: BP 111/64
== END 2019-01-22 20:45 | disposition home or self-care (01) ==
LOC: ED 17:43
DX: R53.83 Other fatigue (principal); R26.9 Unspecified abnormalities of gait and mobility; E11.9 Type 2 diabetes mellitus without complications; I25.10 Atherosclerotic heart disease of native coronary artery without angina pectoris; Z87.891 Personal history of nicotine dependence; Z86.718 Personal history of other venous thrombosis and embolism; Z79.01 Long term (current) use of anticoagulants; Z79.82 Long term (current) use of aspirin; Z88.8 Allergy status to other drugs, medicaments and biological substances
CPT/HCPCS: 36415; 70450; 80053; 80320; 85025; 85610; 93005; 96360; 96361; 99283; G0480

== ENCOUNTER 2019-01-24 16:54 | Inpatient (IN) | payer MEDICARE ==
[2019-01-24] MEDS ORDERED: Clindamycin CAP* 150 MG PO ONE (17:06)
--- NOTE | 2019-01-24 17:28 | ED ---
Complex/Multi-Sys Presentation - HPI Summary HPI Summary: Patient is an 88 y/o M presenting to the ED via EMS for a chief complaint of fall. Patient is present with his . Patient fell on 01/24/19 from a sitting position and hit his head. Patient has ecchymosis to the bilateral wrists and above the buttocks, left shoulder laceration, and abrasion of the forehead. Patient denies myalgia or dizziness at the present time. Patient's denies any aggravating or alleviating factors. Patient has a history of frequent falls and was previously seen at [facility] on 01/22/19 for a fall and discharged after discussion with hospitalist (his had agreed to outpatient PT at that time) . Patient uses a walker at home but often forgets. also reports straining with urination (hx BPH and flomax dec recently). - History Of Current Complaint Chief Complaint: EDFall Hx Obtained From: Patient, Family/Chief Dietitian - Onset/Duration: Sudden Onset, Lasting Minutes, Still Present Timing: Constant, Minutes Severity Currently: Moderate Severity Initially: Moderate Location: Negative Aggravating Factor(s): None Alleviating Factor(s): None Associated Signs And Symptoms: Positive: Other - Positive ecchymosis to the bilateral wrists and above the buttocks, left shoulder laceration, and abrasion of the forehead; negative myalgia. Negative: Dizziness - Allergies/Home Medications Allergies/Adverse Reactions: Allergies Allergy/AdvReac Type Severity Reaction Status Date / Time pravastatin Allergy See Comment Verified 01/22/19 18:43 scallops Allergy Severe Vomiting Uncoded 01/22/19 18:43 Home Medications: Home Medications Cyanocobalamin TAB* [Vitamin B12 TAB*] 500 mcg PO DAILY 01/24/19 [History Confirmed 01/24/19] Digoxin TAB* [Lanoxin TAB*] 0.125 mg PO MOWEFR 01/24/19 [History Confirmed 01/24] Doxazosin TAB* [Cardura TAB*] 4 mg PO BEDTIME 01/24/19 [History Confirmed ] Finasteride TAB* [Proscar TAB*] 5 mg PO DAILY 01/24/19 [History Confirmed ] Multivitamins/Minerals TAB* [Theragran/minerals TAB*] 1 tab PO DAILY 01/24/19 [ History Confirmed 01/24/19] PMH/Surg Hx/FS Hx/Imm Hx Previously Healthy: Yes Endocrine/Hematology History: Reports: Hx Anticoagulant Therapy - Xarelto, Hx Diabetes Denies: Hx Anemia Cardiovascular History: Reports: Hx Coronary Artery Disease, Hx Pacemaker/ICD, Other Cardiovascular Problems/Disorders - History of DVT's; Heart Disease ( Myopathy) Denies: Hx Angina, Hx Hypercholesterolemia, Hx Hypertension, Hx Myocardial Infarction, Hx Valvular Heart Disease Respiratory History: Reports: Hx Sleep Apnea - current CPAP user, compliant Denies: Hx Asthma, Hx Chronic Obstructive Pulmonary Disease (COPD) GI History: Denies: Hx Jaundice History: Reports: Hx Benign Prostatic Hyperplasia Denies: Hx Dialysis, Hx Renal Disease Musculoskeletal History: Reports: Hx Arthritis Sensory History: Reports: Hx Contacts or Glasses, Hx Hearing Aid Denies: Hx Legally Blind, Hx Deafness Opthamlomology History: Reports: Hx Contacts or Glasses Denies: Hx Legally Blind EENT History: Denies: Hx Deafness - Surgical History Surgical History: Yes Surgery Procedure, Year, and Place: Pacemaker; Bilateral Cataract; Coronary Angiogram; Tonsillectomy Infectious Disease History: No Infectious Disease History: Denies: Traveled Outside the [place] in Last 30 Days - Family History Known Family History: Positive: Cardiac Disease - [place], Other - Parkinson's, CVA - Social History Occupation: Retired Lives: With Family Alcohol Use: Daily Alcohol Amount: 2 glasses of wine Hx Substance Use: No Substance Use Type: Reports: None Hx Tobacco Use: Yes Smoking Status (MU): Former Smoker Review of Systems Negative: Myalgia Positive: Bruising - Bilateral wrists and above the buttocks, Other - Positive left shoulder laceration and abrasion of forehead Neurological: Other - Negative dizziness All Other Systems Reviewed And Are Negative: Yes Physical Exam - Summary Physical Exam Summary: Constitutional: Elderly male, NAD Skin: Warm, Dry. Abrasion to the forehead, ecchymosis to the left elbow and bilateral wrist with a skin tears, pressure ulcer stage I decubitus near the coccyx. HENT: Normocephalic; Atraumatic Eyes: Conjunctiva normal Neck: Musculoskeletal ROM normal neck. (-) JVD, (-) Stridor, (-) Nuchal rigidity Cardio: Rhythm regular, rate normal, Heart sounds normal; Intact distal pulses; Radial pulses are 2+ and symmetric. (-) Murmur. Pacemaker in the left chest wall. Pulmonary/Chest wall: Effort normal. (-) Respiratory distress, (-) Wheezes, (-) Rales Abd: Soft, (-) tenderness,+suprapubic distension, (-) Guarding, (-) Rebound Musculoskeletal: (-) Edema Lymph: (-) Cervical adenopathy Neuro: Alert, Oriented x3. Poor historian. Fine tremors of upper extremities, CN 2-12 grossly intact, no dysmetria. Psych: Mood and affect Normal Triage Information Reviewed: Yes Vital Signs On Initial Exam: Initial Vitals Temp Pulse Resp BP Pulse Ox 98.9 F 70 18 139/71 94 01/24/19 17:01 01/24/19 17:01 01/24/19 17:01 01/24/19 17:01 01/24/19 17:01 Vital Signs Reviewed: Yes - [place] Coma Scale Best Eye Response: 4 - Spontaneous Best Motor Response: 5 - Purposeful Movement Best Verbal Response: 5 - Oriented Coma Scale Total: 14 Procedures - Sedation Patient Received Moderate/Deep Sedation with Procedure: No Diagnostics - Vital Signs Vital Signs Temp Pulse Resp BP Pulse Ox 01/24/19 17:01 98.9 F 70 18 139/71 94 - Laboratory Result Diagrams: 01/24/19 17:23 01/24/19 17:23 Lab Statement: Any lab studies that have been ordered have been reviewed, and results considered in the medical decision making process. - Radiology Pelvis X-ray Radiology Interpretation Completed By: Radiologist Summary of Radiographic Findings: Pelvis X-ray IMPRESSION: OSTEOPENIA WITH NO EVIDENCE FOR FRACTURE ON LIMITED VIEWS, IF THE PATIENT'S SYMPTOMS. PERSIST RECOMMEND FOLLOW-UP IMAGING. Reviewed by ED physician. Chest X-ray Radiology Interpretation Completed By: Radiologist Summary of Radiographic Findings: Chest X-ray IMPRESSION: NO ACUTE CARDIOPULMONARY PROCESS BY RADIOGRAPH. Reviewed by ED physician. Elbow X-ray Radiology Interpretation Completed By: Radiologist Summary of Radiographic Findings: Elbow X-ray IMPRESSION: 1. The ossicle about the medial epicondyle may be related to old trauma. Otherwise no acute fracture is identified. 2. Osteopenia. 3. Vascular calcifications. Reviewed by ED physician. Wrist X-ray Radiology Interpretation Completed By: Radiologist Summary of Radiographic Findings: Wrist X-ray IMPRESSION: 1. Osteopenia with no displaced fracture. If the patient's pain persists, short-term follow-up imaging is recommended. 2. Vascular calcifications. 3. 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 Reviewed by ED physician. - CT Brain CT CT Interpretation Completed By: Radiologist Summary of CT Findings: Brain CT IMPRESSION: 1. No acute intracranial findings or significant change since prior. 2. Age-related atrophy and chronic white matter ischemic change. 3. Left frontal skin laceration and hematoma. Reviewed by ED physician. Cervical Spine CT CT Interpretation Completed By: Radiologist Summary of CT Findings: Cervical Spine CT IMPRESSION: 1. No acute findings. 2. Multilevel degenerative change. Stable grade 1 C4 on C5 anterolisthesis, likely degenerative. 3. Low density 2.7 cm nodule again noted in the left thyroid lobe. Reviewed by ED physician. - EKG 17:38 Cardiac Rate: NL - 70 BPM EKG Rhythm: Sinus Rhythm ST Segment: Normal Ectopy: None Summary of EKG Findings: EKG at 17:38 reveals 70 BPM with normal sinus rhythm and artefacts, no STEMI. Reviewed and interpreted by ED physician. Re-Evaluation - Re-Evaluation First Re-Evaluation Time: 18:38 Change: Unchanged Comment: At 18:38, I updated the about the plan for admission. Bladder scan w >999, so placed. Complex Multi-Symp Course/Dx Course Of Treatment: 88-year-old male parkinsonism-like traits, recent ED visit for falls presents with continued falls. Physical examination elderly male, no acute distress. Abrasions to arms with ecchymosis, abrasion to forehead. We' ll check plain films of the bilateral wrist and left elbow, chest pelvis, CT brain C-spine. Plan for admission to medicine given that patient has had repeated presentations for falls and is unsafe at home. - Diagnoses Provider Diagnoses: Falls, Weakness - Physician Notifications Discussed Care Of Patient With: Danielle Snyder - At 18:38, Dr. Danielle Snyder agrees to admit the patient to [facility] with a diagnosis of falls and weakness. Time Discussed With Above Provider: 18:38 Instructed by Provider To: Admit As Inpatient Discharge ED - Sign-Out/Discharge Documenting (check all that apply): Patient Departure - Admit - Discharge Plan Condition: Stable Disposition: ADMITTED TO [facility] Referrals: Millie Villeda MD [Primary Care Provider] - - Billing Disposition and Condition Condition: STABLE Disposition: Admitted to [facility] - Attestation Statements Document Initiated by Apoorva: Yes Documenting Scribe: Gunjan Newman Provider For Whom Apoorva is Documenting (Include Credential): Ivis Wong MD Scribe Attestation: IGunjan, scribed for Ivis Wong MD on 01/24/19 at 1854. Scribe Documentation Reviewed: Yes Provider Attestation: The documentation as recorded by the Gunjan finn accurately reflects the service I personally performed and the decisions made by me, Ivis Wong MD Status of Scribe Document: Viewed
[2019-01-24 17:38] LABS: ABS Lymphocytes 0.8 10^3/ul (1.0-4.8); ABS Monocytes 0.8 10^3/ul (0-0.8); ABS Neutrophils 7.5 10^3/ul (1.5-7.7); Hematocrit 39 % (42-52); Hemoglobin 13.1 g/dL (14.0-18.0); Lymphocyte % 9.2 %; Mean Corpuscular HGB Conc 34 g/dL (31-36); Mean Corpuscular Hemoglobin 33 pg (27-31); Mean Corpuscular Volume 98 fL (80-94); Nucleated Red Blood Cells % 0.1; Platelet Count 130 10^3/uL (150-450); Red Blood Count 3.95 10^6 /uL (4.18-5.48); Red Cell Distribution Width 13 % (10-15); White Blood Count 9.2 10^3/uL (3.5-10.8)
[2019-01-24 17:55] LABS: Albumin 3.6 g/dL (3.2-5.2); Albumin/Globulin Ratio 1.4 (1-3); BUN/Creatinine Ratio 26.7 (8-20); Calcium 8.9 mg/dL (8.6-10.3); Globulin 2.5 g/dL (2-4); Potassium 4.2 mmol/L (3.5-5.0); Total Bilirubin 0.9 mg/dL (0.2-1.0); Total Protein 6.1 g/dL (6.4-8.9)
[2019-01-24] MEDS ORDERED: Tamsulosin CAP* 0.4 MG PO ONE (17:57)
[2019-01-24] MEDS ORDERED: Tetan/Diph/Pertus SYR(Tdap)* 0.5 ML SYR(BOOSTRIX) use SYR contains LATEX IM ONE (18:52)
[2019-01-24 19:17] LABS: Digoxin 0.4 ng/ml (0.8-2.0)
[2019-01-24 19:18] LABS: Urine Appearance Cloudy; Urine Bacteria Absent (Absent); Urine Bilirubin Negative (Negative); Urine Blood 3+ (Negative); Urine Color Amber; Urine Glucose Negative (Negative); Urine Ketones Negative (Negative); Urine Nitrite Negative (Negative); Urine Protein Negative (Negative); Urine Red Blood Cell 2+(6-10/hpf) (Absent); Urine Urobilinogen Negative (Negative); Urine White Blood Cell Absent (Absent)
[2019-01-24] MEDS ORDERED: Al Hydrox/Mg Hydrox/Simet LIQ* 30 ML UDC PO PRN (19:34)
[2019-01-24] MEDS ORDERED: Ondansetron INJ* 2 MG/ML VIAL IV PRN (19:34)
[2019-01-24] MEDS ORDERED: Acetaminophen TAB* 325 MG PO PRN (19:34)
[2019-01-24] MEDS ORDERED: Senna TAB 8.6 mg* TAB PO PRN (19:34)
[2019-01-24] MEDS ORDERED: Dextrose 50% VIAL 50 ml IV PUSH PRN (19:45)
[2019-01-24] MEDS ORDERED: NS 0.9% 1000 ML** 1,000 ML IV SCH (19:45)
[2019-01-24] MEDS ORDERED: Doxazosin TAB* 2 MG PO SCH (21:00)
[2019-01-24 21:17] LABS: Alcohol < 10 mg/dL (<10)
--- NOTE | 2019-01-24 22:03 | HP ---
CC: Dr. Villeda * HISTORY AND PHYSICAL: DATE OF ADMISSION: 01/24/19 ATTENDING PHYSICIAN WHILE IN THE HOSPITAL: Dr. Osman Duggan * (dictated by HORACE Guido). PRIMARY CARE PROVIDER: Dr. Villeda. CHIEF COMPLAINT: Fall at home. HISTORY OF PRESENT ILLNESS: Boogie Solis is an 88-year-old white male with past medical history significant for atrial fibrillation, status post pacemaker , not on anticoagulation; CHINMAY, on CPAP; diabetes with peripheral neuropathy; history of prior DVT and coronary artery disease and BPH, who presented to the emergency department after mechanical fall at home. The patient was in the emergency department 2 days prior for fall and was discharged home and leading up to this has had multiple other falls at home as well. Today, the patient states that he was attempting to stand up to get to the edge of his bed to use the urinal when he suddenly found himself on the floor. The patient's at bedside does give me the majority of the history as the patient appears to be somewhat of a poor historian. The patient's says that when she got home, she found the patient on the floor with his legs on the bed. Reportedly per the patient's , the patient has had difficulty making urine for the last several days. The patient does not adequately state this and says he has not had no problem with urination. The patient denies dysuria, fever, chills, chest pain, difficulty breathing. Denies pain in his head or his neck or in his low back. Denies lightheadedness and dizziness or visual changes or unilateral weakness, numbness, tingling. The patient was recently advised by Dr. Cardenas 5 to 6 days ago to decrease his doxazosin from 4 mg to 2 mg given his lightheadedness with frequent falls. He was advised to continue his finasteride at the same dose. The patient denies abdominal pain, nausea, vomiting, diarrhea. EMERGENCY DEPARTMENT COURSE: A Os was placed and 1100 cc was drained, with dark, somewhat red-tinged urine. The patient was generally weak and unable to ambulate on his own in the emergency department. The hospitalist were asked to evaluate the patient for admission. PAST MEDICAL HISTORY: 1. Recent diagnosis of Parkinsonism. 2. AFib, no anticoagulation due to recent falls, permanent pacemaker. 3. CHINMAY, on CPAP. 4. 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 5. Sick sinus syndrome. 6. Prior history of DVT in 2000 and 2007, one of this was after a long drive. 7. BPH. 8. Coronary artery disease without PCI. PAST SURGICAL HISTORY: 1. Bilateral cataract surgery. 2. Permanent pacemaker placement. 3. Tonsillectomy. HOME MEDICATIONS: 1. Doxazosin 2 mg p.o. daily. 2. Finasteride 5 mg p.o. daily. 3. Digoxin 0.125 mg p.o. Wednesday, Wednesday, Wednesday. 4. Aspirin 81 mg p.o. daily. 5. Multivitamin 1 tab p.o. daily. 6. Vitamin B12 500 mcg p.o. daily. 7. Glimepiride 0.5 mg p.o. daily. ALLERGIES: History of vomiting to scallops, unknown reaction to PRAVASTATIN. FAMILY HISTORY: Mother had Parkinson's and at age 82. Father at age 66 due to an [place]. SOCIAL HISTORY: The patient lives with his . He has 3 children from a prior marriage. He quit smoking in 1984 and prior to that smoked cigars and pipes for approximately 30 years. The patient currently drinks 1.5 glasses of wine per day. Denies illicit drug use. 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 Should the patient need a surrogate medical decision maker, he would like to appoint Janice Solis, his whose cell phone number is [phone]. REVIEW OF SYSTEMS: An 11-point review of systems was completed and all pertinent positives and negatives are above in the HPI. All other systems are negative. PHYSICAL EXAMINATION VITAL SIGNS: Temp 98.9 degrees Fahrenheit, HR 70 bpm, RR 18 resp/min, O2 saturation 94% on room air, BP 139/71 GENERAL: Elderly white male, lying in hospital bed, appearing comfortable, in no acute distress. HEENT: Eyes: PERRL. Sclerae anicteric. ENT: Mucous membranes are moist. A small hematoma to the left aspect of the frontal region. LUNGS: Clear to auscultation throughout. CARDIO: Regular rate and rhythm without murmurs, rubs, or gallops. ABDOMEN: Soft, nontender, nondistended. No hepatosplenomegaly. No suprapubic tenderness. No CVA tenderness. EXTREMITIES: No clubbing, cyanosis, or edema. : Erythematous scrotum. NEURO: The patient is alert and oriented x3. No focal deficits. Hard of hearing. Able to follow commands. Strength is 5/5 in all extremities. Sensation to light touch is grossly intact throughout, though diminished in bilateral feet. SKIN: Warm and dry. Disseminated ecchymosis, bilateral lower extremities. DIAGNOSTIC STUDIES/LAB DATA: White blood cell count 9.2, hemoglobin 13.1, hematocrit 39, platelets 130. Sodium 143, potassium 4.2, chloride 109, carbon dioxide 29, anion gap 5, BUN 28, creatinine 1.05, glucose 211. Total bili 0.9, AST 99, ALT 64, alk phos 54. Urine, rbc's +2, urine blood +3, present hyaline casts. Urine specific gravity is 1.02. Digoxin level is 0.4. Brain CT, no acute intracranial findings or significant change since prior. Age - related atrophy and chronic white matter ischemic change. Left frontal skin laceration and hematoma. Cervical spine CT, no acute findings. Multilevel degenerative change. Stable grade I C4 and C5 anterolisthesis, likely degenerative. Low density 2.7 cm nodule again noted in the left thyroid lobe. Chest x-ray, no acute cardiopulmonary process by radiograph. Pelvis x-ray, osteopenia with no evidence for fracture on limited views. If the patient's symptoms persist, recommend followup imaging. Left elbow x-ray, the ossicle about the medial epicondyle may be related to old trauma. Otherwise, no acute fracture is identified. Osteopenia. Vascular calcifications. Bilateral wrist x-rays, osteopenia with no displaced fracture. If the patient' s pain persist, she will return for followup imaging as recommended. Vascular calcifications. Advanced first CMC osteoarthropathy bilaterally. EKG, what appears to be normal sinus rhythm, though difficult due to artifact, rate 70 beats per minute, no ST elevations or depressions. Left bundle branch block consistent with prior EKG. ASSESSMENT AND PLAN: Boogie Solis is an 88-year-old white male with past medical history significant for Parkinsonism, benign prostatic hyperplasia, atrial fibrillation and diabetes, who presents to the emergency department after a mechanical fall and is found to have significant urinary retention. The patient will be admitted to OB for: 1. Mechanical fall. The patient is having more frequent falls at home and at this point, he is having difficulty ambulating. He has no fractures related to this or intracranial hemorrhage as CT of his brain has been negative. I will order physical therapy. He normally ambulates with a walker independently, but he admits to sometimes forgetting to use it and his endorsed this. 2. Urinary retention. The patient had 1100 cc of urine retention as demonstrated by so placement in the emergency department. At this point, he has no kidney injury, though we will continue to monitor this. I will order a renal ultrasound to evaluate for hydronephrosis. His normal outpatient urologist, Dr. Cardenas, recently decreased his doxazosin from 4 mg to 2 mg and this is perhaps the reason for his retention. It appears he recommended this change in an effort to prevent future falls; however, his falls have continued despite this change and it would likely be a benefit to return to his previous dose, which I will do while he is in the hospital. He did receive one dose of 0.4 mg Flomax in emergency department as well as a dose of clindamycin. At this point, it is unclear whether continue antibiotics is necessary and I will await urine culture for doing so and Dr. Cardenas will be contacted in the morning for further evaluation. I will order 50 cc an hour of normal saline. The urine is somewhat bloody. There does appear to be some extent of hematuria. 3. Atrial fibrillation. The patient is rate controlled at this time. His digoxin level is low and he normally takes this 3 days a week and I will continue it daily while he is in the hospital. He is not on anticoagulation due to his falls. Digoxin level should be repeated. 4. Diabetes. I will order an A1c for tomorrow. I will hold the patient's home glimepiride and use a sliding scale insulin while he is here. 5. Obstructive sleep apnea. The patient used CPAP at home and I will order this for this to be continued while the patient is in the hospital. 6. Coronary artery disease. I will continue the patient's home aspirin. This patient does not appear to be on beta-christiane. 7. Thyroid nodule. The patient has a consistent thyroid nodule, incidentally found on his imaging and I will order a TSH to follow this. 8. FEN: The patient has electrolytes within normal limits. Carbohydrate consistent diet has been ordered and 50 cc of IV normal saline will be running continuously as previously mentioned. 9. Code status: The patient is full code. 10. DVT prophylaxis: The patient has 40 mg of subcu Lovenox started daily. He has a DVT risk score of 6. TIME SPENT: Approximately 45 minutes was spent on this admission, approximately half this time was spent at bedside evaluating the patient and discussing the plan of care. This case has been reviewed with my attending, Dr. Osman Duggan, and he agrees with this plan of care. HORACE GUIDO [id number]/[facility] #: [id number] MYRIAM
[2019-01-24] MEDS: Enoxaparin(*) 40 MG/0.4 ML SYR SUBCUT SCH (22:27)
[2019-01-25 07:15] LABS: Calcium 8.4 mg/dL (8.6-10.3)
[2019-01-25 07:19] LABS: TSH (Thyroid Stimulating Horm) 0.8 mcIU/mL (0.34-5.60)
[2019-01-25 07:20] LABS: BUN/Creatinine Ratio 32.1 (8-20); EGFR African American 104.8 (>60); EGFR Non-African American 86.6 (>60)
[2019-01-25 07:29] LABS: ABS Lymphocytes 0.7 10^3/ul (1.0-4.8); ABS Monocytes 0.6 10^3/ul (0-0.8); Eosinophil % 0.1 %; Hematocrit 34 % (42-52); Hemoglobin 11.5 g/dL (14.0-18.0); Lymphocyte % 9.1 %; Mean Corpuscular HGB Conc 34 g/dL (31-36); Mean Corpuscular Hemoglobin 33 pg (27-31); Mean Corpuscular Volume 98 fL (80-94); Platelet Count 124 10^3/uL (150-450); Red Blood Count 3.48 10^6 /uL (4.18-5.48); Red Cell Distribution Width 13 % (10-15); White Blood Count 7.3 10^3/uL (3.5-10.8)
[2019-01-25] MEDS: Insulin LISPRO* 1 UNITS UNIT SUBCUT SCH ×3 (08:24→18:06)
[2019-01-25] MEDS: Finasteride TAB* 5 MG PO SCH (09:50)
[2019-01-25] MEDS: Cyanocobalamin TAB* 500 MCG PO SCH (09:50)
[2019-01-25] MEDS: Multivitamins/Minerals TAB PO SCH (09:50)
[2019-01-25] MEDS: Aspirin 81 mg CHEW TAB* 81 MG TAB.CHEW PO SCH (09:50)
--- NOTE | 2019-01-25 10:09 | PN ---
Subjective Date of Service: 01/25/19 Interval History: Mr. Solis states that he fell off the edge of his couch and slid to the floor yesterday. He states he hit his head. He denies injury elsewhere, denies pain. He states that he falls often; when asked if it is due to weakness, he states: no, just careless. He notes that he was down for approximately 6 hours at one point. He has no other complaints today. Objective Active Medications: Acetaminophen (Tylenol Tab*) 650 mg PO Q4H PRN PRN Reason: MILD PAIN or TEMP > 100.4 Al Hydrox/Mg Hydrox/Simethicone (Maalox Plus*) 30 ml PO Q6H PRN PRN Reason: INDIGESTION Aspirin (Aspirin 81 Mg Chew Tab*) 81 mg PO DAILY [facility] Last Admin: 01/25/19 09:50 Dose: 81 mg Cyanocobalamin (Vitamin B12 Tab*) 500 mcg PO DAILY [facility] Last Admin: 01/25/19 09:50 Dose: 500 mcg Dextrose (Dextrose 50% Vial 50 Ml*) 25 ml IV PUSH .FOR FS < 60 - SS PRN PRN Reason: FS < 60 Digoxin (Lanoxin Tab*) 0.125 mg PO 1700 [facility] Doxazosin Mesylate (Cardura Tab*) 4 mg PO BEDTIME [facility] Last Admin: 01/24/19 22:28 Dose: 4 mg Enoxaparin Sodium (Lovenox(*)) 40 mg SUBCUT Q24H [facility] Last Admin: 01/24/19 22:27 Dose: 40 mg Finasteride (Proscar Tab*) 5 mg PO DAILY [facility] Last Admin: 01/25/19 09:50 Dose: 5 mg Sodium Chloride (Ns 0.9% 1000 Ml) 1,000 mls @ 50 mls/hr IV PER RATE [facility] Last Admin: 01/24/19 22:35 Dose: 50 mls/hr Insulin Human Lispro (Humalog*) 0 units SUBCUT AC [facility]; Protocol Last Admin: 01/25/19 08:24 Dose: 2 unit Multivitamins/Minerals (Theragran/Minerals Tab*) 1 tab PO DAILY [facility] Last Admin: 01/25/19 09:50 Dose: 1 tab Ondansetron HCl (Zofran Inj*) 4 mg IV Q4H PRN PRN Reason: NAUSEA/VOMITING Senna (Senokot 8.6 Mg Tab*) 1 tab PO BID PRN PRN Reason: CONSTIPATION Last Admin: 01/24/19 22:27 Dose: 1 tab Vital Signs: Temp Pulse Resp BP Pulse Ox 97.6 F 70 22 121/56 95 01/25/19 15:38 01/25/19 18:07 01/25/19 15:38 01/25/19 15:38 01/25/19 15:38 Oxygen Devices in Use Now: None Appearance: Mr. Solis is an older white male who is sitting in his chair in no acute distress. Eyes: No Scleral Icterus, PERRLA Ears/Nose/Mouth/Throat: NL Teeth, Lips, Gums, Clear Oropharnyx, Mucous Membranes Moist Neck: NL Appearance and Movements; NL JVP, Trachea Midline Respiratory: Symmetrical Chest Expansion and Respiratory Effort, Clear to Auscultation Cardiovascular: NL Sounds; No Murmurs; No JVD, RRR, No Edema Abdominal: NL Sounds; No Tenderness; No Distention, No Hepatosplenomegaly, - - So in place with dark urine, possibly blood-tinged Skin: No Rash or Ulcers, No Nodules or Sclerosis, - - L knee ecchymosis; R knee with 4 small, older, scabbed wounds to lateral knee Neurological: Alert and Oriented x 3, NL Muscle Strength and Tone Result Diagrams: 01/25/19 06:57 01/25/19 06:00 Assess/Plan/Problems-Billing Assessment: 88 yom PMHx AF, DM, parkinsonism, CAD, h/o DVT presents with frequent falls, urinary retention, mild rhabdo. - Patient Problems (1) Fall Comment: -frequent falls, mechanical without LOC, head injury -CXR WNL -UA negative -negative alcohol -h/o parkinsonism without PD -PT/OT; likely will need THOMAS placement (2) Rhabdomyolysis Comment: -mild rhabdo -no LAM -IVF at 100cc/h and recheck in a.m. (3) Urinary retention Comment: -urinary retention of 1100cc noted in ER -catheter in place -urology consulted; thank you for recommendation -pt doxazosin dose decreased from 4 to 2 d/t c/o fatigue, hypotension -[facility] recommends d/c doxasozin, start tamsulosin 0.4mg PO bedtime; monitor for hypotension -continue so cath x3-4 days, then remove and continue bladder scan -f/u with Ronald, primary urologist, at discharge (4) Parkinsonism Comment: -seen June 2016 by Lisha for parkinsonism; at that time frequent falls, no tremor; dx polyneuropathy, mild cognitive impairment, vascular parkinsonism -questionable PD currently -no neuro appt scheduled for future -neuro consult pending (5) Atrial fibrillation Comment: -not on AC d/t freq falls -on dig three times weekly; dig level low -dig daily while inpatient -follow up with cardiology outpatient (6) Thyroid nodule Comment: -TSH WNL -follow up outpatient (7) Diabetes mellitus Comment: -HA1c 6.1 -hold glimepiride -continue FS, lispro ss (8) CAD (coronary artery disease) Comment: -asa (9) CHINMAY (obstructive sleep apnea) Comment: -CPAP (10) DVT prophylaxis Comment: -lovenox (11) Full code status Status and Disposition: Inpatient. Discharge when stable. May require THOMAS.
--- NOTE | 2019-01-25 17:15 | CONS ---
CONSULTATION REPORT: DATE OF CONSULT: 01/25/19 PATIENT OF: HORACE Real; Dr. Husain; Dr. Villeda. HISTORY OF PRESENT ILLNESS: I am asked to assess Boogie Solis for his gait disturbance prior to placement to document his underlying diagnoses and evaluate as the hospitalist decides whether rehab at [facility] is appropriate. 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 Husain in the past, most recently June 2016 for parkinsonism with small vessel ischemic disease on MRI scan and he has vascular cognitive impairment. There is a discussion of possible donepezil and concern about fall risk. He was prescribed a low dose of donepezil at that point and was going to be seen as needed. He presented on 01/24/19 yesterday with a fall at home and was in the ER 2 days prior also for a fall and has had multiple falls. He is a poor historian and apparently has had some problems with urination as well. He had in the ER 1100 cc of urine after Gastelum was placed and Urology here has seen him and made recommendations. PAST MEDICAL HISTORY: He has history of parkinsonism as described above; history of AFib, but not on anticoagulation due to his recent falls. He has osteoarthritis, diabetes mellitus type 2 with peripheral neuropathy, sick sinus syndrome, history of DVT, BPH, coronary artery disease. PAST SURGICAL HISTORY: He is status post bilateral cataract surgery, permanent pacemaker placement, tonsillectomy. MEDIATIONS AT HOME: Include: 1. Doxazosin 2 mg daily. 2. Finasteride 5 mg daily. 3. Digoxin 0.25 three days a week. 4. Aspirin 81 mg daily. 5. Vitamin B12 500 mcg daily. 6. Glimepiride 0.5 mg daily. ALLERGIES: He is allergic to SCALLOPS where he will vomit, and has unknown reaction to PRAVASTATIN. FAMILY HISTORY: His mother had Parkinson's and at 82. The father at 66 due to an [place]. SOCIAL HISTORY: He lives with his . He has 3 children from a prior marriage. He quit smoking in 1984 with a prior history of cigar smoking and pipe smoking for 30 years. He drinks 1-1/2 glasses of wine a day and denies any illicit drugs. REVIEW OF SYSTEMS: Negative in all 11 spheres other than what is in the HPI. PHYSICAL EXAM: Temperature 97.6, pulse 70, respirations 22, blood pressure 121/ 56. He was alert and oriented x2. He can follow 1-step commands, but did not see the to follow more 2-step commands. Cranial nerves II through XII were intact. Motor exam revealed normal strength, though he had some bradykinesia. He had bilateral intention tremor. He had a glove stocking vibratory sensory loss and had trace reflexes. Toes were downgoing. We tried to stand him and he needed to 2- person assist to stand at his walker. He had a relatively wide-based stance. Chest: Clear. Cardiovascular: Irregular rate and rhythm. Abdomen is soft with positive bowel sounds. LABORATORY DATA: White count 7.3, hematocrit 34, platelets 124. Chemistries showed normal CMP other than a BUN of 27, glucose was elevated with hemoglobin A1c of 6.1, calcium 8.4. AST 99, ALT 64. TSH 0.8. UA had 2+ red cells. Toxicology showed digoxin 0.4, negative serum alcohol level. IMPRESSION AND PLAN: We discussed with HORACE Real, that he does not have clear Parkinson's syndrome, but carries a diagnosis of parkinsonism secondary to his small vessel ischemic disease. This I think in part explains his gait which is quite dysfunctional. He also has on exam a significant peripheral neuropathy and I have recommended checking B12 and folate, but most likely this is secondary to age and diabetes. I do not think he needs to be on medicines for Parkinson's, they would be unlikely to help and I am not sure if there is any specific neurological treatment that is indicated right now. He also has some cognitive impairment and his CT scan did show diffuse atrophy and white matter changes. Thank you for sharing his case. [id number]/[facility] #: [id number] MYRIAM
[2019-01-25] MEDS: Digoxin TAB* 0.125 MG PO SCH (18:07)
[2019-01-25] MEDS: Tamsulosin CAP* 0.4 MG PO SCH (21:10)
[2019-01-25] MEDS: Enoxaparin(*) 40 MG/0.4 ML SYR SUBCUT SCH (21:10)
[2019-01-26] MEDS: NS 0.9% 1000 ML** 1,000 ML IV SCH ×2 (02:37→13:51)
[2019-01-26 05:32] LABS: ABS Eosinophils 0.1 10^3/ul (0-0.6); ABS Lymphocytes 0.7 10^3/ul (1.0-4.8); ABS Monocytes 0.6 10^3/ul (0-0.8); ABS Neutrophils 4.5 10^3/ul (1.5-7.7); Eosinophil % 1.1 %; Hematocrit 35 % (42-52); Hemoglobin 11.5 g/dL (14.0-18.0); Lymphocyte % 11.2 %; Mean Corpuscular HGB Conc 33 g/dL (31-36); Mean Corpuscular Hemoglobin 33 pg (27-31); Mean Corpuscular Volume 99 fL (80-94); Mean Platelet Volume 7.9 fL (7.4-10.4); Nucleated Red Blood Cells % 0.1; Platelet Count 126 10^3/uL (150-450); Red Blood Count 3.49 10^6 /uL (4.18-5.48); Red Cell Distribution Width 13 % (10-15); White Blood Count 5.9 10^3/uL (3.5-10.8)
[2019-01-26 05:53] LABS: BUN/Creatinine Ratio 28.1 (8-20); Blood Urea Nitrogen 25 mg/dL (6-24); CO2 Carbon Dioxide 24 mmol/L (22-32); Calcium 8.3 mg/dL (8.6-10.3); Creatine Kinase 1064 U/L (10-223); EGFR African American 98.1 (>60); Glucose 122 mg/dL (70-100); Sodium 145 mmol/L (135-145)
[2019-01-26 05:59] LABS: Anion Gap 9 mmol/L (2-11); Chloride 112 mmol/L (101-111)
[2019-01-26] MEDS ORDERED: Pneumococcal *Vac Polyvalent 0.5 ML VIAL IM ONE (09:00)
[2019-01-26] MEDS: Insulin LISPRO* 1 UNITS UNIT SUBCUT SCH ×3 (09:02→17:37)
[2019-01-26 10:36] LABS: Folate > 20.00 ng/mL (>3.99)
[2019-01-26] MEDS: Multivitamins/Minerals TAB PO SCH (10:55)
[2019-01-26] MEDS: Finasteride TAB* 5 MG PO SCH (10:55)
[2019-01-26] MEDS: Cyanocobalamin TAB* 500 MCG PO SCH (10:55)
[2019-01-26] MEDS: Aspirin 81 mg CHEW TAB* 81 MG TAB.CHEW PO SCH (10:56)
[2019-01-26] MEDS: Influenza VAC *QUAD* 2019-20* 0.5 ML SYRINGE IM ONE ×2 (10:58→11:05)
--- NOTE | 2019-01-26 16:59 | PN ---
Subjective Date of Service: 01/26/19 Interval History: Patient has no complaints. No acute events overnight. Denies chest pain, difficulty breathing, abd pain, low back pain, fever/chills. Objective Active Medications: Acetaminophen (Tylenol Tab*) 650 mg PO Q4H PRN PRN Reason: MILD PAIN or TEMP > 100.4 Al Hydrox/Mg Hydrox/Simethicone (Maalox Plus*) 30 ml PO Q6H PRN PRN Reason: INDIGESTION Aspirin (Aspirin 81 Mg Chew Tab*) 81 mg PO DAILY [facility] Last Admin: 01/26/19 10:56 Dose: 81 mg Cyanocobalamin (Vitamin B12 Tab*) 500 mcg PO DAILY [facility] Last Admin: 01/26/19 10:55 Dose: 500 mcg Dextrose (Dextrose 50% Vial 50 Ml*) 25 ml IV PUSH .FOR FS < 60 - SS PRN PRN Reason: FS < 60 Digoxin (Lanoxin Tab*) 0.125 mg PO 1700 [facility] Last Admin: 01/25/19 18:07 Dose: 0.125 mg Enoxaparin Sodium (Lovenox(*)) 40 mg SUBCUT Q24H [facility] Last Admin: 01/25/19 21:10 Dose: 40 mg Finasteride (Proscar Tab*) 5 mg PO DAILY [facility] Last Admin: 01/26/19 10:55 Dose: 5 mg Insulin Human Lispro (Humalog*) 0 units SUBCUT [facility]; Protocol Last Admin: 01/26/19 13:17 Dose: 2 unit Multivitamins/Minerals (Theragran/Minerals Tab*) 1 tab PO DAILY [facility] Last Admin: 01/26/19 10:55 Dose: 1 tab Ondansetron HCl (Zofran Inj*) 4 mg IV Q4H PRN PRN Reason: NAUSEA/VOMITING Senna (Senokot 8.6 Mg Tab*) 1 tab PO BID PRN PRN Reason: CONSTIPATION Last Admin: 01/24/19 22:27 Dose: 1 tab Tamsulosin HCl (Flomax Cap*) 0.4 mg PO BEDTIME [facility] Last Admin: 01/25/19 21:10 Dose: 0.4 mg Vital Signs - 8 hr 01/26/19 01/26/19 01/26/19 11:15 14:09 14:12 Temperature 96 F 98.0 F 98.0 F Pulse Rate 71 70 70 Respiratory 18 Rate Blood Pressure 140/63 116/48 116/48 (mmHg) O2 Sat by Pulse 96 97 97 Oximetry 01/26/19 15:15 Temperature 98.0 F Pulse Rate 70 Respiratory Rate Blood Pressure 116/48 (mmHg) O2 Sat by Pulse 97 Oximetry Oxygen Devices in Use Now: None Appearance: Thin, elderly white male, laying in bed, appearing in NAD Eyes: No Scleral Icterus, - - PERRL Ears/Nose/Mouth/Throat: Mucous Membranes Moist Neck: - - neck supple Respiratory: Symmetrical Chest Expansion and Respiratory Effort, Clear to Auscultation Cardiovascular: NL Sounds; No Murmurs; No JVD, RRR Abdominal: - - abd soft, nontender, nondistended Extremities: No Edema, No Clubbing, Cyanosis Skin: No Rash or Ulcers Neurological: Alert and Oriented x 3, NL Muscle Strength and Tone Result Diagrams: 01/26/19 05:02 01/26/19 05:02 Assess/Plan/Problems-Billing Assessment: 88 yom PMHx AF, DM, parkinsonism, CAD, h/o DVT presents with frequent falls, urinary retention. - Patient Problems (1) Fall Current Visit: Yes Status: Acute Comment: -frequent falls, mechanical without LOC, head injury -CXR WNL -UA negative -negative alcohol -h/o parkinsonism without PD -PT/OT recommending THOMAS, pending (2) Urinary retention Current Visit: Yes Status: Acute Code(s): R33.9 - RETENTION OF URINE, UNSPECIFIED SNOMED Code(s): 767685161 Comment: -urinary retention of 1100cc noted in ER -possibly related to recent doxazosin dose decreased from 4mg to 2mg outpatient -catheter in place -urology consulted; thank you for recommendation -Ronald recommends d/c doxasozin, start tamsulosin 0.4mg PO bedtime; monitor for hypotension -continue so cath x3-4 days, then remove and continue bladder scan -f/u with Ronald, primary urologist, at discharge (3) Atrial fibrillation Current Visit: Yes Status: Acute Code(s): I48.91 - UNSPECIFIED ATRIAL FIBRILLATION SNOMED Code(s): 66063418 Comment: -not on AC d/t freq falls -on dig three times weekly; dig level low, following -dig daily while inpatient -follow up with cardiology outpatient (4) Diabetes mellitus Current Visit: Yes Status: Acute Code(s): E11.9 - TYPE 2 DIABETES MELLITUS WITHOUT COMPLICATIONS SNOMED Code(s): 86127027 Comment: -HA1c 6.1 -hold glimepiride -continue FS, lispro ss (5) Parkinsonism Current Visit: Yes Status: Acute Code(s): G20 - PARKINSON'S DISEASE SNOMED Code(s): 60646535 Comment: -seen June 2016 by Lisha for parkinsonism; at that time frequent falls, no tremor; dx polyneuropathy, mild cognitive impairment, vascular parkinsonism -questionable PD currently -no neuro appt scheduled for future -appreciate neurology consult. No medication changes -neuropathy not related to deficiency in B12 or folate, likely diabetic (6) Thyroid nodule Current Visit: Yes Status: Acute Code(s): E04.1 - NONTOXIC SINGLE THYROID NODULE SNOMED Code(s): 526652223 Comment: -TSH WNL -follow up outpatient (7) DVT prophylaxis Current Visit: Yes Status: Acute Code(s): Z29.9 - ENCOUNTER FOR PROPHYLACTIC MEASURES, UNSPECIFIED SNOMED Code(s): 804945581 Comment: -lovenox (8) Full code status Current Visit: Yes Status: Acute Code(s): Z78.9 - OTHER SPECIFIED HEALTH STATUS SNOMED Code(s): 194047823 Status and Disposition: Pending THOMAS placement
[2019-01-26] MEDS: Digoxin TAB* 0.125 MG PO SCH (17:38)
[2019-01-26] MEDS: Enoxaparin(*) 40 MG/0.4 ML SYR SUBCUT SCH (20:22)
[2019-01-26] MEDS: Tamsulosin CAP* 0.4 MG PO SCH (20:22)
[2019-01-27] MEDS: Insulin LISPRO* 1 UNITS UNIT SUBCUT SCH ×2 (07:45→11:55)
[2019-01-27] MEDS: Cyanocobalamin TAB* 500 MCG PO SCH (09:25)
[2019-01-27] MEDS: Multivitamins/Minerals TAB PO SCH (09:25)
[2019-01-27] MEDS: Finasteride TAB* 5 MG PO SCH (09:25)
[2019-01-27] MEDS: Aspirin 81 mg CHEW TAB* 81 MG TAB.CHEW PO SCH (09:25)
[2019-01-27 11:22] VITALS: BP 106/55
--- NOTE | 2019-01-27 12:33 | DS ---
CC: Dr. Villeda; Dr. Lopez; Dr. Cardenas * DISCHARGE SUMMARY: DATE OF ADMISSION: 01/24/19 DATE OF DISCHARGE: 01/27/19 PRIMARY CARE PROVIDER: Dr. Villeda. OUTPATIENT STRIPPER AND TAPER: Dr. Lopez. OUTPATIENT UROLOGIST: Dr. Cardenas. ATTENDING PHYSICIAN WHILE IN THE HOSPITAL: Dr. Jarrett Britton * (dictated by HORACE Guido). PRIMARY DIAGNOSES: 1. Urinary retention. 2. Mechanical fall. SECONDARY DIAGNOSES: 1. Parkinsonism. 2. Atrial fibrillation, status post permanent pacemaker. 3. Obstructive sleep apnea, on CPAP. 4. Diabetes mellitus type 2 with peripheral neuropathy. 5. Sick sinus syndrome, status post permanent pacemaker. 6. History of DVT in 2000 and 2007. 7. Benign prostatic hyperplasia. 8. Coronary artery disease, no history of PCI. STUDIES WHILE IN THE HOSPITAL: Renal ultrasound on 01/24/19, no hydronephrosis on the left. Mild right pelviectasis. HISTORY OF PRESENT ILLNESS/HOSPITAL COURSE: Boogie Solis is an 88-year-old white male with past medical history significant for parkinsonism; atrial fibrillation; sick sinus syndrome, status post pacemaker, not on anticoagulation ; diabetes; and BPH, who presented to the emergency department on 01/24/19 after a fall and was incidentally found to have urinary retention to 1100 cc. Please see admitting history and physical written by myself, HORACE Guido , for further details. Ultimately, the patient's outpatient urologist Dr. Cardenas was contacted regarding the urinary retention finding and the patient did have mild pelviectasis on the right side. Considering that the patient was already on finasteride, Dr. Cardenas recommended starting Flomax as well and discontinuing his doxazosin. At this point, he needs to be on more days of Flomax before trialing discontinuation of his indwelling Gastelum. Gastelum needs to remain in place and has been as such since he arrived to emergency department. He has had good urinary output since then. He was without kidney injury during his hospital stay and was initially on IV fluids, which has since been discontinued. He overall had good control of his blood glucose. He was seen in consultation by neurologist Dr. Comer who again confirmed the patient's history of parkinsonism and had no further recommendations at this point. He was evaluated by physical therapy during his hospital stay who recommended subacute rehab for the patient at discharge. Additionally during the patient's hospital stay, his digoxin levels were found to be low. At home, he was on Wednesday, Wednesday, Wednesday dosing of digoxin, and his digoxin was changed to daily dosing while he was in the hospital. His digoxin level was 0.7 on day of discharge and he was rate controlled during his hospital stay. On day of discharge, the patient has no complaints, he feels well. He denies fever, chills, abdominal pain, low back pain, or flank pain. PHYSICAL EXAM ON THE DAY OF DISCHARGE: General: Thin elderly white male, sitting on hospital chair, appearing comfortable, in no acute distress. Eyes: PERRLA. Sclerae anicteric. ENT: Mucous membranes are moist. Lungs: Clear to auscultation bilaterally. Cardio: Regular rate and rhythm with no murmurs, rubs, or gallops. Abdomen: Soft, nontender, nondistended. Extremities: No clubbing, cyanosis, or edema. : Gastelum catheter with aden colored urine. Neuro: The patient is alert and oriented x3. No focal deficits. Able to move all extremities. Skin: Some eschar to the left elbow and scattered in the bilateral lower extremities, otherwise skin is warm and dry. DISCHARGE PLAN: Diet: Carbohydrate consistent diet. Activity: The patient may return to normal activity as tolerated. The patient is going to be discharged for subacute rehab to [facility]. On 01/30/19, Gastelum catheter removal should be trialed. His Gastelum catheter should be removed and a bladder scan for postvoid residual should occur within the same day. Additionally, he should have outpatient followup with Dr. Cardenas and additionally with his record tester Dr. Lopez regarding his digoxin changes. He should have a repeat BMP and a repeat digoxin level. His digoxin dosage should be adjusted by Dr. Lopez based on these repeat levels. 1 week from discharge from subacute rehab, he should follow up with his primary care provider Dr. Villeda. The patient should return to the hospital if he is experiencing flank pain, hematuria, low back pain, abdominal pain, fever, chills, or urinary retention. DISCHARGE MEDICATIONS: New medications: 1. Flomax 0.4 mg p.o. at bedtime. 2. Digoxin 0.125 mg p.o. daily. Continued home medications: 1. Proscar 5 mg p.o. daily. 2. Aspirin 81 mg p.o. daily. 3. Multivitamin 1 tab p.o. daily. 4. Vitamin B12 500 mcg p.o. daily. 5. Glimepiride 0.5 mg p.o. daily. CONDITION ON DISCHARGE: Stable. DISPOSITION: [facility] for subacute rehab. TIME SPENT: Approximately 40 minutes was spent on this discharge, approximately half that time was spent at the bedside evaluating the patient and discussing the plan of care. HORACE GUIDO [id number]/[facility] #: [id number] MTDD
== END 2019-01-27 14:20 | DRG 726 ==
LOC: ED 16:54 → MED 19:34 → OBSVTOIN 20:00 → MED 21:04 → UNDOADMOB 21:04
PROVIDERS: ADMIT Internal Medicine; ATTEND Internal Medicine
PROC: 0T9B70Z Drainage of Bladder with Drainage Device, Via Natural or Artificial Opening (ICD-10-PCS; principal; 2019-01-24)
DX: N40.1 Benign prostatic hyperplasia with lower urinary tract symptoms (principal); M62.82 Rhabdomyolysis; R33.8 Other retention of urine; I25.10 Atherosclerotic heart disease of native coronary artery without angina pectoris; L89.151 Pressure ulcer of sacral region, stage 1; G20 Parkinson's disease; M19.90 Unspecified osteoarthritis, unspecified site; G47.33 Obstructive sleep apnea (adult) (pediatric); I48.91 Unspecified atrial fibrillation; E11.42 Type 2 diabetes mellitus with diabetic polyneuropathy; I49.5 Sick sinus syndrome; H91.90 Unspecified hearing loss, unspecified ear; E04.1 Nontoxic single thyroid nodule; M19.032 Primary osteoarthritis, left wrist; M19.031 Primary osteoarthritis, right wrist; M85.89 Other specified disorders of bone density and structure, multiple sites; I44.7 Left bundle-branch block, unspecified; R31.9 Hematuria, unspecified; R29.6 Repeated falls; G31.84 Mild cognitive impairment of uncertain or unknown etiology; W19.XXXA Unspecified fall, initial encounter; S41.012A Laceration without foreign body of left shoulder, initial encounter; S00.81XA Abrasion of other part of head, initial encounter; Y92.009 Unspecified place in unspecified non-institutional (private) residence as the place of occurrence of the external cause; Z95.0 Presence of cardiac pacemaker; Z86.718 Personal history of other venous thrombosis and embolism; Z99.89 Dependence on other enabling machines and devices; Z98.42 Cataract extraction status, left eye; Z98.41 Cataract extraction status, right eye; Z87.891 Personal history of nicotine dependence; Z88.8 Allergy status to other drugs, medicaments and biological substances; Z91.013 Allergy to seafood; Z79.82 Long term (current) use of aspirin; Z79.84 Long term (current) use of oral hypoglycemic drugs
CPT/HCPCS: 36415; 70450; 71045; 72125; 72170; 76775; 80048; 80053; 80162; 80320; 81003; 81015; 82550; 82607; 82746; 83036; 84443; 85025; 85610; 90471; 90686; 90715; 90732; 93005; 94660; 96360; 96361; 96372; 99283; A9270-GY; G0480; G8978-GP-CK; G8979-GP-CI; G8987-GO-CK; G8988-GO-CI; J1650

== ENCOUNTER 2019-04-28 20:34 | Inpatient (IN) | payer MEDICARE ==
--- NOTE | 2019-04-28 20:52 | ED ---
Complex/Multi-Sys Presentation - HPI Summary HPI Summary: This pt is an 89 y/o male presenting to [facility] via EMS for increasing weakness and blood in catheter. EMS reports pt has a chronic so with history of prostate CA. Per EMS, pt has a visiting nurse and catheter was recently changed this week. EMS states pt was weak enough to slip onto the floor today. Patient denies any complaints. When asked if he feels weak he responds "weak in the head." Patient denies any fever, chills, erythema of eyes, sore throat, chest pain, SOB, cough, abd pain, nausea, vomiting, dysuria, hematuria, myalgia, edema , rash, or dizziness. His medications include aspirin, Digoxin, - History Of Current Complaint Chief Complaint: EDWeakness Time Seen by Provider: 04/28/19 20:39 Hx Obtained From: Patient, EMS Onset/Duration: Lasting Hours, Still Present Timing: Hours Location: Negative Aggravating Factor(s): nothing Alleviating Factor(s): nothing Associated Signs And Symptoms: Positive: Weakness. Negative: SOB, Cough, Chest Pain, Nausea, Vomiting, Fever - Allergies/Home Medications Allergies/Adverse Reactions: Allergies Allergy/AdvReac Type Severity Reaction Status Date / Time pravastatin Allergy See Comment Verified 01/22/19 18:43 scallops AdvReac Severe Vomiting Verified 04/28/19 23:59 Home Medications: Home Medications Digoxin TAB* [Lanoxin TAB*] 0.125 mg PO SEE INSTRUCTIONS 04/28/19 [History Confirmed 04/28/19] PMH/Surg Hx/FS Hx/Imm Hx Endocrine/Hematology History: Reports: Hx Anticoagulant Therapy - Xarelto, Hx Diabetes - with peripheral neuropathy Denies: Hx Anemia Cardiovascular History: Reports: Hx Coronary Artery Disease, Hx Pacemaker/ICD, Other Cardiovascular Problems/Disorders - History of DVT's; Heart Disease ( Myopathy) Denies: Hx Angina, Hx Hypercholesterolemia, Hx Hypertension, Hx Myocardial Infarction, Hx Valvular Heart Disease Respiratory History: Reports: Hx Sleep Apnea - current CPAP user, compliant Denies: Hx Asthma, Hx Chronic Obstructive Pulmonary Disease (COPD) GI History: Denies: Hx Jaundice History: Reports: Hx Benign Prostatic Hyperplasia Denies: Hx Dialysis, Hx Renal Disease Musculoskeletal History: Reports: Hx Arthritis Sensory History: Reports: Hx Contacts or Glasses, Hx Hearing Aid Denies: Hx Legally Blind, Hx Deafness Opthamlomology History: Reports: Hx Contacts or Glasses Denies: Hx Legally Blind - Surgical History Surgical History: Yes Surgery Procedure, Year, and Place: Pacemaker; Bilateral Cataract; Coronary Angiogram; Tonsillectomy Infectious Disease History: No Infectious Disease History: Denies: Traveled Outside the [place] in Last 30 Days - Family History Known Family History: Positive: Cardiac Disease - NM, Other - Parkinson's, CVA - Social History Alcohol Use: Daily Alcohol Amount: 6 oz wine Hx Substance Use: No Substance Use Type: Reports: None Hx Tobacco Use: Yes Smoking Status (MU): Former Smoker Review of Systems Negative: Fever, Chills Negative: Erythema Negative: Sore Throat Negative: Chest Pain Negative: Shortness Of Breath, Cough Negative: Vomiting, Nausea Negative: dysuria, hematuria Negative: Myalgia, Edema Negative: Rash Neurological: Other - NEGATIVE: dizziness Positive: Weakness All Other Systems Reviewed And Are Negative: Yes Physical Exam - Summary Physical Exam Summary: Constitutional: Well-developed, Well-nourished, Alert. (-) Distressed Skin: Warm, Dry HENT: Normocephalic; Atraumatic. Small amount of blood in his tongue. Abrasions on lower lip. Eyes: Pupils are pinpoint. Neck: Musculoskeletal ROM normal neck. (-) JVD, (-) Stridor, (-) Tracheal deviation Cardio: Rhythm regular, rate is tachycardic, Heart sounds normal; Intact distal pulses; The pedal pulses are 2+ and symmetric. Radial pulses are 2+ and symmetric. (-) Murmur Pulmonary/Chest wall: Effort normal. (-) Respiratory distress, (-) Wheezes, (-) Rales Abd: Soft, Suprapubic tenderness, (-) Distension, (-) Guarding, (-) Rebound Musculoskeletal: (-) Edema Lymph: (-) Cervical adenopathy Neuro: Alert, Oriented x3 Psych: Mood and affect Normal Triage Information Reviewed: Yes Vital Signs On Initial Exam: Initial Vitals Temp Pulse Resp BP Pulse Ox 98.4 F 122 20 163/100 94 04/28/19 20:37 04/28/19 20:37 04/28/19 20:37 04/28/19 20:37 04/28/19 20:37 Vital Signs Reviewed: Yes Procedures - Sedation Patient Received Moderate/Deep Sedation with Procedure: No Diagnostics - Vital Signs Vital Signs Temp Pulse Resp BP Pulse Ox 04/28/19 20:37 98.4 F 122 20 163/100 94 - Laboratory Result Diagrams: 05/01/19 05:31 05/01/19 05:31 Lab Statement: Any lab studies that have been ordered have been reviewed, and results considered in the medical decision making process. - Radiology Chest XR Radiology Interpretation Completed By: ED Physician - CT Brain CT CT Interpretation Completed By: Radiologist Summary of CT Findings: IMPRESSION: 1. No acute intracranial abnormality. 2. Age -related atrophy and moderate chronic small vessel ischemic disease. Dr. Flynn has reviewed this report. - EKG 2100 Cardiac Rate: Tachycardia - at 112 bpm Summary of EKG Findings: EKG at 2100 shows paced rhythm at a rate of 112 bpm. This EKG has been interpreted and reviewed by ED physician. Complex Multi-Symp Course/Dx Assessment/Plan: Pt is an 89 y/o [place] [facility] [place] for increasing weakness and blood in catheter. EMS reports pt has a chronic so with history of prostate CA. Per EMS, pt has a visiting nurse and catheter was recently changed this week. EMS states pt was weak enough to slip onto the floor today. Patient denies any complaints. When asked if he feels weak he responds "weak in the head.". Suspect dehydration vs sepsis potentially related to hemorrhagic cystitis vs UTI. Labs remarkable for WBC of 13.7, hemoglobin of 13.9, hematocrit of 40, carbon dioxide of 21, BUN of 25, creatinine of 1.28, glucose is 281, troponin is 0.06. In the ED course the pt was given IV fluids, Rocephin. Brain CT shows 1. No acute intracranial abnormality. 2. Age-related atrophy and moderate chronic small vessel ischemic disease. Patient was admitted to the hospitalist. No significant hematuria, So flushes well. - Diagnoses Provider Diagnoses: Sepsis, UTI (urinary tract infection) - Critical Care Time Critical Care Time: 30-74 min Discharge ED - Sign-Out/Discharge Documenting (check all that apply): Patient Departure - [place] [facility] [place] Discharge Plan Condition: Stable Disposition: ADMITTED TO [facility] - Billing Disposition and Condition Condition: STABLE Disposition: Admitted to [facility] - Attestation Statements Document Initiated by Scribe: Yes Documenting Scribe: Halie Robles Provider For Whom Scribe is Documenting (Include Credential): Jose David Flynn MD Scribe Attestation: I, Halie Robles, scribed for Jose David Flynn MD on 05/01/19 at 0824. Scribe Documentation Reviewed: Yes Provider Attestation: The documentation as recorded by the scribeHalie accurately reflects the service I personally performed and the decisions made by me, Jose David Flynn MD Status of Scribe Document: Viewed
--- OUTSIDE RECORDS SUMMARY | 2019-04-28 20:59 | XMS REPORT ---
:1930 Author Organization [facility] Care Team Providers Name Role Phone Unavailable Unavailable Unavailable Problems Condition Condition Condition Status Onset Resolution Last Treating Comments Name Details Category Date Date Treatment Clinician Date Parkinson's Parkinson's Diagnosis Active 2018-03 Jonna disease disease 05-14 Carrier RN Benign Benign Diagnosis Active 2018-03 Jonna prostatic prostatic 05-14 Carrier RN hyperplasia hyperplasia with lower with lower urinary urinary tract tract symptoms symptoms Other Other Diagnosis Active 2018-03 Jonna retention retention 05-14 Carrier RN of urine of urine Encounter Encounter Diagnosis Active 2018-03 Jonna for fitting for fitting 05-14 Carrier RN and and adjustment adjustment of urinary of urinary device device Type 2 Type 2 Diagnosis Active Jonna diabetes diabetes 03-22 Carrier RN mellitus mellitus with with diabetic diabetic polyneuropa polyneuropa thy thy Rhabdomyoly Rhabdomyoly Diagnosis Active Jonna sis sis 03-22 Carrier RN Type 2 Type 2 Diagnosis Active Jonna diabetes diabetes Carrier RN mellitus mellitus with other with other skin ulcer skin ulcer 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 RN ulcer of ulcer of left ankle left ankle with other with other specified specified severity severity 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 Carrier RN disease of disease of [place] coronary coronary artery artery without without angina angina pectoris pectoris Unspecified Unspecified Diagnosis Active Jonna atrial atrial Carrier RN fibrillatio fibrillatio n n Cardiomyopa Cardiomyopa Diagnosis Active Jonna thy, thy, Carrier RN unspecified unspecified Repeated Repeated Diagnosis Active Jonna falls falls Carrier RN Obstructive Obstructive Diagnosis Active Jonna sleep apnea sleep apnea Carrier RN (adult) (adult) (pediatric) (pediatric) Sick sinus Sick sinus Diagnosis Active Jonna syndrome syndrome Carrier RN Personal Personal Diagnosis Active Jonna history of history of Carrier RN other other venous venous thrombosis thrombosis and and embolism embolism Presence of Presence of Diagnosis Active Jonna cardiac cardiac Carrier RN pacemaker pacemaker senior care senior care Diagnosis Active Jonna (current) (current) Carrier RN use of use of aspirin aspirin Personal Personal Diagnosis Active Jonna history of history of 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 Pain frequent Pain Mgmt Active 2018-03 Aleta pain 05-15 Jerome 09:55: [id number] 00 Respiratory dyspnea Respirator Active 2018-03 Aelta present y 05-15 Jerome 09:55: [id number] Respiratory CPAP Respirator Active 2018-03 Aleta treatments y 05-15 Jerome in home 09:55: [id number] Endo/Richard diabetic Endo/Richard Resolve 2018-032019-04-05 Aleta foot care d 05-15 10:20:00 Jerome 09:55: [id number] 00 Endo/Richard anti-coagul Endo/Richard Resolve 2018-032019-04-05 Aelta ation d 05-15 10:20:00 Jerome therapy 09:55: [id number] Sensory impaired Sensory Active 2018-03 Aleta hearing 05-15 Jerome 09:55: [id number] 00 Integument skin Integument Active 2018-03 Aleta integrity 05-15 Jerome risk 09:55: [id number] 00 Nutrition nutritional Nutrition Resolve 2018-032019-03-31 Aleta restriction d 05-15 10:40:00 Jerome s 09:55: [id number] 00 Elimination catheter Eliminatio Active 2018-03 Aleta present n 05-15 Jerome 09:55: [id number] 00 Neuro confusion Neuro/Emot Active 2018-03 Aleta present ion 05-15 Jerome 09:55: [id number] 00 Neuro impaired Neuro/Emot Active 2018-03 Aleta decision-ma ion 05-15 Jerome trevor 09:55: [id number] 00 Activity ADL Activity Active 2018-03 Aleta assistance 05-15 Jerome required 09:55: [id number] 00 Activity self-care Activity Resolve 2018-032019-04-07 Aleta deficit d 05-15 10:30:00 Jerome 09:55: [id number] 00 Safety structural Safety Active 2018-03 Aleta barriers 05-15 Jerome present 09:55: [id number] 00 Safety fall risk Safety Active 2018-03 Aleta factor 05-15 Jerome present 09:55: [id number] 00 Safety risk for Safety Active 2018-03 Aleta hospitaliza 05-15 Jerome tion 09:55: [id number] 00 Medication oral med Meds Resolve 2018-032019-04-05 Aleta assistance d 05-15 10:20:00 Jerome required 09:55: [id number] 00 Musculoskel transfer Musculoske Active 2018-03 Aleta etal assistance letal 05-15 Jerome required 09:55: [id number] 00 Musculoskel requires Musculoske Active 2018-03 Aleta etal human letal 05-15 Jerome assist to 09:55: [id number] leave home 00 Bed transfer PT/OT: Bed Active 2018-03 [place] Mobility/Tr deficit: Mobility/T 2-24 Jackson ansfer sit/stand ransfer 11:22: [id number] 00 Bed transfer PT/OT: Bed Active 2018-03 [place] Mobility/Tr deficit: Mobility/T 2-24 Jackson ansfer standing ransfer 11:22: [id number] pivot 00 Bed transfer PT/OT: Bed Active 2018-03 [place] Mobility/Tr deficit: Mobility/T 2-24 Jackson ansfer toilet/comm ransfer 11:22: [id number] ode 00 Bed knowledge/s PT/OT: Bed Active 2018-03 [place] Mobility/Tr kill Mobility/T 2-24 Jackson ansfer deficit: pt ransfer 11:22: [id number] 00 Bed bed PT/OT: Bed Active 2018-03 [place] Mobility/Tr mobility Mobility/T 2-24 Jackson ansfer deficit ransfer 11:22: [id number] 00 Balance/End balance/cooker meal PT/OT: Active 2018-03 [place] urance rdination Balance/En 2-24 Jackson deficit durance 11:22: [id number] 00 Balance/End endurance PT/OT: Active 2018-03 [place] urance deficit Balance/En 2-24 Jackson durance 11:22: [id number] 00 Balance/End knowledge/s PT/OT: Active 2018-03 [place] urance kill Balance/En 2-24 Jackson deficit: pt durance 11:22: [id number] 00 Gait/Locomo gait PT/OT: Active 2018-03 [place] tion assistive Gait/Locom 2-24 Jackson problems device otion 11:22: [id number] present 00 Gait/Locomo gait PT/OT: Active 2018-03 [place] tion deficit Gait/Locom 2-24 Jackson problems otion 11:22: [id number] 00 Gait/Locomo knowledge/s PT/OT: Active 2018-03 [place] tion kill Gait/Locom 2-24 Jackson problems deficit: pt otion 11:22: [id number] 00 Cardio pacemaker/I Cardiovasc Active Jonna BYRNE ular 03-24 Carrier RN 11:30: 00 Endo/Richard knowledge/s Endo/Richard Resolve 2019-04-05 Jonna hough d 1-10 10:20:00 Carrier RN deficit 10:40: hypo/hyperg 00 lycemia: pt Allergies, Adverse Reactions, Alerts Allergy Name Allergy Status Severity Reaction(s) Onset Inactive Treating Comments Type Date Date Clinician scallops Base Active Unknown Reaction 2018-03 Nikki White Ingredient Unknown 2- pravastatin Base Active Unknown Reaction 2018-03 Nikki White Ingredient Unknown 2-24 Medications Ordered Filled Start Stop Current Ordering Indication Dosage Frequency Signature Comments Components Medication Medication Date Date Medication? Clinician (SIG) Name Name tamsulosin tamsulosin 2018-03 Yes Cannariato Unknown Unknown 0.4 mg 0.4 mg 2-24 Suzette TORREZ capsule capsule ne multivitami multivitami 2018-03 Yes Cannariato Unknown Unknown n capsule n capsule 2-24 Suzette TORREZ ne acetaminoph acetaminoph 2018-03 Yes Cannariato Unknown Unknown en 325 mg en 325 mg 2-24 Suzette TORREZ tablet tablet ne glimepiride glimepiride 2018-03 Yes Cannariato Unknown Unknown 1 mg tablet 1 mg tablet 2-24 Suzette TORREZ ne Vitamin Vitamin 2018-03 Yes Cannariato Unknown Unknown B-12 500 B-12 500 2-24 Suzette TORREZ mcg tablet mcg tablet ne Aspirin Low Aspirin Low 2018-03 Yes Cannariato Unknown Unknown Dose 81 mg Dose 81 mg 2-24 Suzette TORREZ tablet,solomon tablet,solomon ne yed release yed release digoxin 125 digoxin 125 2018-03 Yes Cannariato Unknown Unknown mcg (0.125 mcg (0.125 2-24 Suzette TORREZ mg) tablet mg) tablet ne finasteride finasteride 2019-1 Yes Cannariato Unknown Unknown 5 mg tablet 5 mg tablet 24 Suzette TORREZ doxycycline doxycycline Yes Jander Unknown Unknown hyclate 100 hyclate 100 -14 ,Jewell mg capsule mg capsule Vital Signs Vital Name Observation Time Observation Value Comments SYSTOLIC mm[Hg] 2019-04-14 18:10:02 130 mm[Hg] mm[Hg] Method: Sit SYSTOLIC mm[Hg] 2019-03-14 18:09:31 122 mm[Hg] mm[Hg] Method: Stand DIASTOLIC mm[Hg] 2019-04-14 18:10:02 60 mm[Hg] mm[Hg] Method: Sit DIASTOLIC mm[Hg] 2019-03-14 18:09:31 66 mm[Hg] mm[Hg] Method: Stand PULSE 2019-04-14 18:10:02 72 /min /min RESP RATE 2019-04-12 18:10:00 18 /min /min TEMP 2019-04-14 18:10:02 97.8 [degF] Procedures This patient has no known procedures. Results This patient has no known results.
--- OUTSIDE RECORDS SUMMARY | 2019-04-28 20:59 | XMS REPORT ---
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 Pain frequent Pain Mgmt Active 2018-03 Aleta pain 05-15 [place] 09:55: [id number] Respiratory dyspnea Respirator Active 2018-03 Aleta present y 05-15 [place] 09:55: [id number] 00 Respiratory CPAP Respirator Active 2018-03 Aleta treatments y 05-15 [place] in home 09:55: [id number] Endo/Richard diabetic Endo/Richard Resolve 2018-032019-04-05 Aleta foot care d 05-15 10:20:00 [place] 09:55: [id number] 00 Endo/Richard anti-coagul Endo/Richard Resolve 2018-032019-04-05 Aleta ation d 05-15 10:20:00 [place] therapy 09:55: [id number] 00 Sensory impaired Sensory Active 2018-03 Aleta hearing 05-15 [place] 09:55: [id number] 00 Integument skin Integument Active 2018-03 Aleta integrity 05-15 [place] risk 09:55: [id number] Nutrition nutritional Nutrition Resolve 2018-032019-03-31 Aleta restriction d 05-15 10:40:00 [place] s 09:55: [id number] Elimination catheter Eliminatio Active 2018-03 Aleta present n 05-15 [place] 09:55: [id number] 00 Neuro confusion Neuro/Emot Active 2018-03 Aleta present ion 05-15 [place] 09:55: [id number] 00 Neuro impaired Neuro/Emot Active 2018-03 Aleta decision-ma ion 05-15 [place] trevor 09:55: [id number] 00 Activity ADL Activity Active 2018-03 Aleta assistance 05-15 [place] required 09:55: [id number] Activity self-care Activity Resolve 2018-032019-04-07 Aleta deficit d 05-15 10:30:00 [place] 09:55: [id number] 00 Safety structural Safety Active 2018-03 Aleta barriers 05-15 [place] present 09:55: [id number] 00 Safety fall risk Safety Active 2018-03 Aleta factor 05-15 [place] present 09:55: [id number] 00 Safety risk for Safety Active 2018-03 Aleta hospitaliza 05-15 [place] tion 09:55: [id number] 00 Medication oral med Meds Resolve 2018-032019-04-05 Aleta assistance d 05-15 10:20:00 [place] required 09:55: [id number] 00 Musculoskel transfer Musculoske Active 2018-03 Aleta etal assistance letal 05-15 [place] required 09:55: [id number] 00 Musculoskel requires Musculoske Active 2018-03 Aleta etal human letal 05-15 [place] assist to 09:55: [id number] leave home 00 Bed transfer PT/OT: Bed Active 2018-03 [place] Mobility/Tr deficit: Mobility/T 2-24 [place] ansfer sit/stand ransfer 11:22: [id number] 00 Bed transfer PT/OT: Bed Active 2018-03 [place] Mobility/Tr deficit: Mobility/T 2-24 [place] ansfer standing ransfer 11:22: [id number] pivot 00 Bed transfer PT/OT: Bed Active 2018-03 [place] Mobility/Tr deficit: Mobility/T 2-24 [place] ansfer toilet/comm ransfer 11:22: [id number] ode 00 Bed knowledge/s PT/OT: Bed Active 2018-03 [place] Mobility/Tr kill Mobility/T 2-24 [place] ansfer deficit: pt ransfer 11:22: [id number] 00 Bed bed PT/OT: Bed Active 2018-03 [place] Mobility/Tr mobility Mobility/T 2-24 [place] ansfer deficit ransfer 11:22: [id number] 00 Balance/End balance/asset management coordinator PT/OT: Active 2018-03 [place] urance rdination Balance/En 2-24 [place] deficit durance 11:22: [id number] 00 Balance/End endurance PT/OT: Active 2018-03 [place] urance deficit Balance/En 2-24 [place] durance 11:22: [id number] 00 Balance/End knowledge/s PT/OT: Active 2018-03 [place] urance kill Balance/En 2-24 [place] deficit: pt durance 11:22: [id number] 00 Gait/Locomo gait PT/OT: Active 2018-03 [place] tion assistive Gait/Locom 2-24 [place] problems device otion 11:22: [id number] present 00 Gait/Locomo gait PT/OT: Active 2018-03 [place] tion deficit Gait/Locom 2-24 [place] problems otion 11:22: [id number] 00 Gait/Locomo knowledge/s PT/OT: Active 2018-03 [place] tion kill Gait/Locom 2-24 [place] problems deficit: pt otion 11:22: [id number] 00 Cardio pacemaker/I Cardiovasc Active Jonna BYRNE [...] Unknown 5 mg tablet 5 mg tablet 2-24 Suzette TORREZ doxycycline doxycycline Yes Jander Unknown Unknown hyclate 100 hyclate 100 1-14 ,Jewell mg capsule mg capsule Vital Signs Vital Name Observation Time Observation Value Comments SYSTOLIC mm[Hg] 2019-04-12 18:10:00 110 mm[Hg] mm[Hg] Method: Sit SYSTOLIC mm[Hg] 2019-03-14 18:09:31 122 mm[Hg] mm[Hg] Method: Stand DIASTOLIC mm[Hg] 2019-04-12 18:10:00 58 mm[Hg] mm[Hg] Method: Sit DIASTOLIC mm[Hg] 2019-03-14 18:09:31 66 mm[Hg] mm[Hg] Method: Stand PULSE 2019-04-12 18:10:00 68 /min /min RESP RATE 2019-04-12 18:10:00 18 /min /min TEMP 2019-04-12 18:10:00 98.9 [degF] Procedures This patient has no known procedures. Results This patient has no known results.
--- OUTSIDE RECORDS SUMMARY | 2019-04-28 20:59 | XMS REPORT ---
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 Pain frequent Pain Mgmt Active 2018-03 Aleta pain 05-15 [place] 09:55: [id number] 00 Respiratory dyspnea Respirator Active 2018-03 Aleta present y 05-15 [place] 09:55: [id number] 00 Respiratory CPAP Respirator Active 2018-03 Aleta treatments y 05-15 [place] in home 09:55: [id number] 00 Endo/Richard diabetic Endo/Richard Resolve 2018-032019-04-05 Aleta foot care d 05-15 10:20:00 [place] 09:55: [id number] 00 Endo/Richard anti-coagul Endo/Richard Resolve 2018-032019-04-05 Aleta ation d 05-15 10:20:00 [place] therapy 09:55: [id number] 00 Sensory impaired Sensory Active 2018-03 Aleta hearing 05-15 [place] 09:55: [id number] 00 Integument skin Integument Active 2018-03 Aleta integrity 05-15 [place] risk 09:55: [id number] 00 Nutrition nutritional Nutrition Resolve 2018-032019-03-31 Aleta restriction d 05-15 10:40:00 [place] s 09:55: [id number] 00 Elimination catheter Eliminatio Active 2018-03 Aleta present n 05-15 [place] 09:55: [id number] 00 Neuro confusion Neuro/Emot Active 2018-03 Aleta present ion 05-15 [place] 09:55: [id number] 00 Neuro impaired Neuro/Emot Active 2018-03 Aleta decision-ma ion 05-15 [place] trevor 09:55: [id number] 00 Activity ADL Activity Active 2018-03 Aleta assistance 05-15 [place] required 09:55: [id number] 00 Activity self-care Activity Resolve 2018-032019-04-07 Aleta deficit d 05-15 10:30:00 [place] 09:55: [id number] 00 Safety structural Safety Active 2018-03 Aleta barriers 05-15 [place] present 09:55: [id number] 00 Safety fall risk Safety Active 2018-03 Aleta factor 05-15 [place] present 09:55: [id number] 00 Safety risk for Safety Active 2018-03 Aleta hospitaliza 05-15 [place] tion 09:55: [id number] 00 Medication oral med Meds Resolve 2018-032019-04-05 Aleta assistance d 05-15 10:20:00 [place] required 09:55: [id number] 00 Musculoskel transfer Musculoske Active 2018-03 Aleta etal assistance letal 05-15 [place] required 09:55: [id number] 00 Musculoskel requires Musculoske Active 2018-03 Aleta etal human letal 05-15 [place] assist to 09:55: [id number] leave home 00 Bed transfer PT/OT: Bed Active 2018-03 [place] Mobility/Tr deficit: Mobility/T 2-24 [place] ansfer sit/stand ransfer 11:22: [id number] 00 Bed transfer PT/OT: Bed Active 2018-03 [place] Mobility/Tr deficit: Mobility/T 2-24 [place] ansfer standing ransfer 11:22: [id number] pivot 00 Bed transfer PT/OT: Bed Active 2018-03 [place] Mobility/Tr deficit: Mobility/T 2-24 [place] ansfer toilet/comm ransfer 11:22: [id number] ode 00 Bed knowledge/s PT/OT: Bed Active 2018-03 [place] Mobility/Tr kill Mobility/T 2-24 [place] ansfer deficit: pt ransfer 11:22: [id number] 00 Bed bed PT/OT: Bed Active 2018-03 [place] Mobility/Tr mobility Mobility/T 2-24 [place] ansfer deficit ransfer 11:22: [id number] 00 Balance/End balance/health and wellness coordinator PT/OT: Active 2018-03 [place] urance rdination Balance/En 2-24 [place] deficit durance 11:22: [id number] 00 Balance/End endurance PT/OT: Active 2018-03 [place] urance deficit Balance/En 2-24 [place] durance 11:22: [id number] 00 Balance/End knowledge/s PT/OT: Active 2018-03 [place] urance kill Balance/En 2-24 [place] deficit: pt durance 11:22: [id number] 00 Gait/Locomo gait PT/OT: Active 2018-03 [place] tion assistive Gait/Locom 2-24 [place] problems device otion 11:22: [id number] present 00 Gait/Locomo gait PT/OT: Active 2018-03 [place] tion deficit Gait/Locom 2-24 [place] problems otion 11:22: [id number] 00 Gait/Locomo knowledge/s PT/OT: Active 2018-03 [place] tion kill Gait/Locom 2-24 [place] problems deficit: pt otion 11:22: [id number] 00 Cardio pacemaker/I Cardiovasc Active Jonna BYRNE ular 03-24 Carrier RN 11:30: 00 Endo/Richard knowledge/s Endo/Richard Resolve 2019-04-05 Jonna hough d - 10:20:00 Carrier RN deficit 10:40: hypo/hyperg 00 lycemia: pt Allergies, Adverse Reactions, Alerts Allergy Name Allergy Status Severity Reaction(s) Onset Inactive Treating Comments Type Date Date Clinician scallops Base Active Unknown Reaction 2018-03 Nikki White Ingredient Unknown - pravastatin Base Active Unknown Reaction 2018-03 Nikki White Ingredient Unknown 05-15 Medications Ordered Filled Start Stop Current Ordering Indication Dosage Frequency Signature Comments Components Medication Medication Date Date Medication? Clinician (SIG) Name Name tamsulosin tamsulosin 2018-03 2020- Yes Cannariato Unknown Unknown 0.4 mg 0.4 mg 05-15 Suzette TORREZ capsule capsule ne multivitami multivitami 2018-03 Yes Cannariato Unknown Unknown n capsule n capsule 05-15 Suzette TORREZ ne acetaminoph acetaminoph 2018-03 Yes Cannariato Unknown Unknown en 325 mg en 325 mg -24 Suzette TORREZ tablet tablet ne glimepiride glimepiride 2018-03 Yes Cannariato Unknown Unknown 1 mg tablet 1 mg tablet -24 Suzette TORREZ ne Vitamin Vitamin 2018-03 Yes Cannariato Unknown Unknown B-12 500 B-12 500 -24 Suzette TORREZ mcg tablet mcg tablet ne Aspirin Low Aspirin Low 2018-03 Yes Cannariato Unknown Unknown Dose 81 mg Dose 81 mg -24 Suzette TORREZ tablet,solomon tablet,solomon ne yed release yed release digoxin 125 digoxin 125 2018-03 Yes Cannariato Unknown Unknown mcg (0.125 mcg (0.125 2-24 Suzette TORREZ mg) tablet mg) tablet ne finasteride finasteride 2018-03 Yes Cannariato Unknown Unknown 5 mg tablet 5 mg tablet 24 Suzette TORREZ doxycycline doxycycline Yes Jander Unknown Unknown hyclate 100 hyclate 100 - MD,Jewell mg capsule mg capsule tamsulosin tamsulosin Yes Husseini Unknown Unknown 0.4 mg 0.4 mg 04-19 MD,Joey capsule capsule Vital Signs Vital Name Observation Time Observation Value Comments SYSTOLIC mm[Hg] 2019-04-20 18:10:08 110 mm[Hg] mm[Hg] Method: Sit SYSTOLIC mm[Hg] 2019-03-14 18:09:31 122 mm[Hg] mm[Hg] Method: Stand DIASTOLIC mm[Hg] 2019-04-20 18:10:08 70 mm[Hg] mm[Hg] Method: Sit DIASTOLIC mm[Hg] 2019-03-14 18:09:31 66 mm[Hg] mm[Hg] Method: Stand PULSE 2019-04-20 18:10:08 84 /min /min RESP RATE 2019-04-12 18:10:00 18 /min /min TEMP 2019-04-20 18:10:08 97.0 [degF] Procedures This patient has no known procedures. Results This patient has no known results.
--- OUTSIDE RECORDS SUMMARY | 2019-04-28 20:59 | XMS REPORT ---
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 Pain frequent Pain Mgmt Resolve 2018-032019-04-20 Aleta pain d 05-15 09:45:00 [place] 09:55: [id number] 00 Respiratory dyspnea Respirator Active 2018-03 Aleta present y 05-15 [place] 09:55: [id number] 00 Respiratory CPAP Respirator Active 2018-03 Aleta treatments y 05-15 [place] in home 09:55: [id number] 00 Endo/Richard diabetic Endo/Richard Resolve 2018-032019-04-05 Aleta foot care d 05-15 10:20:00 [place] 09:55: [id number] 00 Endo/Richard anti-coagul Endo/Richard Resolve 2018-032019-04-05 Aleta ation d 05-15 10:20:00 [place] therapy 09:55: [id number] 00 Sensory impaired Sensory Active 2018-03 Aleta hearing 05-15 [place] 09:55: [id number] 00 Integument skin Integument Active 2018-03 Aleta integrity 05-15 [place] risk 09:55: [id number] 00 Nutrition nutritional Nutrition Resolve 2018-032019-03-31 Aleta restriction d 05-15 10:40:00 [facility] 09:55: [id number] 00 Elimination catheter Eliminatio Active 2018-03 Aleta present n 05-15 [place] 09:55: [id number] 00 Neuro confusion Neuro/Emot Active 2018-03 Aleta present ion 05-15 [place] 09:55: [id number] 00 Neuro impaired Neuro/Emot Active 2018-03 Aleta decision-ma ion 05-15 [place] trevor 09:55: [id number] 00 Activity ADL Activity Active 2018-03 Aleta assistance 05-15 [place] required 09:55: [id number] 00 Activity self-care Activity Resolve 2018-032019-04-07 Aleta deficit d 05-15 10:30:00 [place] 09:55: [id number] 00 Safety structural Safety Active 2018-03 Aleta barriers 05-15 [place] present 09:55: [id number] 00 Safety fall risk Safety Active 2018-03 Aleta factor 05-15 [place] present 09:55: [id number] 00 Safety risk for Safety Active 2018-03 Aleta hospitaliza 05-15 [place] tion 09:55: [id number] 00 Medication oral med Meds Resolve 2018-032019-04-05 Aleta assistance d 2- 10:20:00 [place] required 09:55: [id number] 00 Musculoskel transfer Musculoske Active 2018-03 Aleta etal assistance letal 05-15 [place] required 09:55: [id number] 00 Musculoskel requires Musculoske Active 2018-03 Aleta etal human letal 05-15 [place] assist to 09:55: [id number] leave home 00 Bed transfer PT/OT: Bed Resolve 2018-032019-04-20 [place] Mobility/Tr deficit: Mobility/T d 2-24 09:45:00 Jacksonabigail prieto sit/stand ransfer 11:22: [id number] 00 Bed transfer PT/OT: Bed Resolve 2018-032019-04-20 [place] Mobility/Tr deficit: Mobility/T d 2-24 09:45:00 Renetta prieto standing ransfer 11:22: [id number] pivot 00 Bed transfer PT/OT: Bed Resolve 2018-032019-04-20 [place] Mobility/Tr deficit: Mobility/T d 2-24 09:45:00 Jacksonabigail lofer toilet/comm ransfer 11:22: [id number] ode 00 Bed knowledge/s PT/OT: Bed Resolve 2018-032019-04-20 [place] Mobility/Tr kill Mobility/T d 2-24 09:45:00 [place] ansfer deficit: pt ransfer 11:22: [id number] 00 Bed bed PT/OT: Bed Resolve 2018-032019-04-20 [place] Mobility/Tr mobility Mobility/T d 2-24 09:45:00 [place] ansfer deficit ransfer 11:22: [id number] 00 Balance/End balance/cook chill technician PT/OT: Resolve 2018-032019-04-20 [place] urance rdination Balance/En d 2-24 09:45:00 [place] deficit durance 11:22: [id number] 00 Balance/End endurance PT/OT: Resolve 2018-032019-04-20 [place] urance deficit Balance/En d 2-24 09:45:00 [place] durance 11:22: [id number] 00 Balance/End knowledge/s PT/OT: Resolve 2018-032019-04-20 [place] hough Balance/En d 05-15 09:45:00 [place] deficit: pt durance 11:22: [id number] 00 Gait/Locomo gait PT/OT: Resolve 2018-032019-04-20 [place] tion assistive Gait/Locom d 224 09:45:00 [place] problems device otion 11:22: [id number] present 00 Gait/Locomo gait PT/OT: Resolve 2018-032019-04-20 [place] tion deficit Gait/Locom d 05-15 09:45:00 [place] problems otion 11:22: [id number] 00 Gait/Locomo knowledge/s PT/OT: Resolve 2018-032019-04-20 [place] zacarias kill Gait/Locom d 05-15 09:45:00 [place] problems deficit: pt otion 11:22: [id number] 00 Cardio pacemaker/I Cardiovasc Active Jonna BYRNE ular 1-03 Carrier RN 11:30: 00 Endo/Richard knowledge/s Endo/Richard Resolve 2019-04-05 Jonna kill d 1-10 10:20:00 Carrier RN deficit 10:40: hypo/hyperg 00 lycemia: pt Bed transfer PT/OT: Bed Resolve 2019-04-20 [place] Mobility/Tr deficit: Mobility/T d 04-20 09:45:00 [place] ansfer shower/tub ransfer 09:45: [id number] 00 Bed transfer PT/OT: Bed Resolve 2019-04-20 [place] Mobility/Tr deficit: Mobility/T d 04-20 09:45:00 [place] ansfer vehicle ransfer 09:45: [id number] 00 Gait/Locomo stair PT/OT: Resolve 2019-04-20 [place] tion management Gait/Locom d 04-20 09:45:00 [place] problems req otion 09:45: [id number] 00 Safety can be left Safety Active Gustavo alone for 2-05 [place] only short 10:30: [id number] periods 00 Allergies, Adverse Reactions, Alerts Allergy Name Allergy Status Severity Reaction(s) Onset Inactive Treating Comments Type Date Date Clinician scallops Base Active Unknown Reaction 2018-03 Nikki White Ingredient Unknown 05-15 pravastatin Base Active Unknown Reaction 2018-03 Nikki White Ingredient Unknown 05-15 Medications Ordered Filled Start Stop Current Ordering Indication Dosage Frequency Signature Comments Components Medication Medication Date Date Medication? Clinician (SIG) Name Name tamsulosin tamsulosin 2018-03 2020 Yes Cannariato Unknown Unknown 0.4 mg 0.4 mg 05-15 Suzette TORREZ capsule capsule ne multivitami multivitami 2018-03 Yes Cannariato Unknown Unknown n capsule n capsule 05-15 Suzette TORREZ ne acetaminoph acetaminoph 2018-03 Yes Cannariato Unknown Unknown en 325 mg en 325 mg 05-15 Suzette TORREZ tablet tablet ne glimepiride glimepiride 2018-03 Yes Cannariato Unknown Unknown 1 mg tablet 1 mg tablet 05-15 Suzette TORREZ ne Vitamin Vitamin 2018-03 Yes Cannariato Unknown Unknown B-12 500 B-12 500 05-15 Suzette TORREZ mcg tablet mcg tablet ne Aspirin Low Aspirin Low 2018-03 Yes Cannariato Unknown Unknown Dose 81 mg Dose 81 mg 05-15 Suzette TORREZ tablet,solomon tablet,solomon ne yed release yed release digoxin 125 digoxin 125 2018-03 Yes Cannariato Unknown Unknown mcg (0.125 mcg (0.125 24 ,Catheri mg) tablet mg) tablet ne finasteride finasteride 2018-03 Yes Cannariato Unknown Unknown 5 mg tablet 5 mg tablet 24 Suzette TORREZ doxycycline doxycycline Yes Jander Unknown Unknown hyclate 100 hyclate 100 04-04 MDJewell mg capsule mg capsule tamsulosin tamsulosin Yes Husseini Unknown Unknown 0.4 mg 0.4 mg 04-19 MDJoey capsule capsule Vital Signs Vital Name Observation Time Observation Value Comments SYSTOLIC mm[Hg] 2019-04-26 18:10:14 136 mm[Hg] mm[Hg] Method: Sit SYSTOLIC mm[Hg] 2019-03-14 18:09:31 122 mm[Hg] mm[Hg] Method: Stand DIASTOLIC mm[Hg] 2019-04-26 18:10:14 72 mm[Hg] mm[Hg] Method: Sit DIASTOLIC mm[Hg] 2019-03-14 18:09:31 66 mm[Hg] mm[Hg] Method: Stand PULSE 2019-04-26 18:10:14 92 /min /min RESP RATE 2019-04-26 18:10:14 16 /min /min TEMP 2019-04-26 18:10:14 97 [degF] Procedures This patient has no known procedures. Results This patient has no known results.
--- OUTSIDE RECORDS SUMMARY | 2019-04-28 20:59 | XMS REPORT ---
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 Pain frequent Pain Mgmt Resolve 2018-032019-04-20 Aleta pain d 05-15 09:45:00 [place] 09:55: [id number] 00 Respiratory dyspnea Respirator Active 2018-03 Aleta present y 05-15 [place] 09:55: [id number] 00 Respiratory CPAP Respirator Active 2018-03 Aleta treatments y 05-15 [place] in home 09:55: [id number] 00 Endo/Richard diabetic Endo/Richard Resolve 2018-032019-04-05 Aleta foot care d 05-15 10:20:00 [place] 09:55: [id number] 00 Endo/Richard anti-coagul Endo/Richard Resolve 2018-032019-04-05 Aleta ation d 05-15 10:20:00 [place] therapy 09:55: [id number] 00 Sensory impaired Sensory Active 2018-03 Aleta hearing 05-15 [place] 09:55: [id number] 00 Integument skin Integument Active 2018-03 Aleta integrity 05-15 [place] risk 09:55: [id number] 00 Nutrition nutritional Nutrition Resolve 2018-032019-03-31 Aleta restriction d 05-15 10:40:00 [facility] 09:55: [id number] 00 Elimination catheter Eliminatio Active 2018-03 Aleta present n 05-15 [place] 09:55: [id number] 00 Neuro confusion Neuro/Emot Active 2018-03 Aleta present ion 05-15 [place] 09:55: [id number] 00 Neuro impaired Neuro/Emot Active 2018-03 Aleta decision-ma ion 05-15 [place] trevor 09:55: [id number] 00 Activity ADL Activity Active 2018-03 Aleta assistance 05-15 [place] required 09:55: [id number] 00 Activity self-care Activity Resolve 2018-032019-04-07 Aleta deficit d 05-15 10:30:00 [place] 09:55: [id number] 00 Safety structural Safety Active 2018-03 Aleta barriers 05-15 [place] present 09:55: [id number] 00 Safety fall risk Safety Active 2018-03 Aleta factor 05-15 [place] present 09:55: [id number] 00 Safety risk for Safety Active 2018-03 Aleta hospitaliza 05-15 [place] tion 09:55: [id number] 00 Medication oral med Meds Resolve 2018-032019-04-05 Aleta assistance d 2- 10:20:00 [place] required 09:55: [id number] 00 Musculoskel transfer Musculoske Active 2018-03 Aleta etal assistance letal 05-15 [place] required 09:55: [id number] 00 Musculoskel requires Musculoske Active 2018-03 Aleta etal human letal 05-15 [place] assist to 09:55: [id number] leave home 00 Bed transfer PT/OT: Bed Resolve 2018-032019-04-20 [place] Mobility/Tr deficit: Mobility/T d 2-24 09:45:00 Jacksonaibgail prieto sit/stand ransfer 11:22: [id number] 00 Bed transfer PT/OT: Bed Resolve 2018-032019-04-20 [place] Mobility/Tr deficit: Mobility/T d 2-24 09:45:00 Renetta prieto standing ransfer 11:22: [id number] pivot 00 Bed transfer PT/OT: Bed Resolve 2018-032019-04-20 [place] Mobility/Tr deficit: Mobility/T d 2-24 09:45:00 Jacksonabigail lofer toilet/comm ransfer 11:22: [id number] ode 00 Bed knowledge/s PT/OT: Bed Resolve 2018-032019-04-20 [place] Mobility/Tr kill Mobility/T d 2-24 09:45:00 [place] ansfer deficit: pt ransfer 11:22: [id number] 00 Bed bed PT/OT: Bed Resolve 2018-032019-04-20 [place] Mobility/Tr mobility Mobility/T d 2-24 09:45:00 [place] ansfer deficit ransfer 11:22: [id number] 00 Balance/End balance/search marketing coordinator PT/OT: Resolve 2018-032019-04-20 [place] urance rdination Balance/En d 2-24 09:45:00 [place] deficit durance 11:22: [id number] 00 Balance/End endurance PT/OT: Resolve 2018-032019-04-20 [place] urance deficit Balance/En d 2-24 09:45:00 [place] durance 11:22: [id number] 00 Balance/End knowledge/s PT/OT: Resolve 2018-032019-04-20 [place] hough Balance/En d 05-15 09:45:00 [place] deficit: pt durance 11:22: [id number] 00 Gait/Locomo gait PT/OT: Resolve 2018-032019-04-20 [place] tion assistive Gait/Locom d 224 09:45:00 [place] problems device otion 11:22: [id number] present 00 Gait/Locomo gait PT/OT: Resolve 2018-032019-04-20 [place] tion deficit Gait/Locom d 05-15 09:45:00 [place] problems otion 11:22: [id number] 00 Gait/Locomo knowledge/s PT/OT: Resolve 2018-032019-04-20 [place] zacarias kill Gait/Locom d 05-15 09:45:00 [place] problems deficit: pt otion 11:22: [id number] 00 Cardio pacemaker/I Cardiovasc Active Jonna BYRNE ular 1-03 Carrier RN 11:30: 00 Endo/Richard knowledge/s Endo/Richard Resolve 2019-04-05 Jonna kill d 1-10 10:20:00 Carrier RN deficit 10:40: hypo/hyperg 00 lycemia: pt Bed transfer PT/OT: Bed Resolve 2019-04-20 [place] Mobility/Tr deficit: Mobility/T d 04-20 09:45:00 [place] ansfer shower/tub ransfer 09:45: [id number] 00 Bed transfer PT/OT: Bed Resolve 2019-04-20 [place] Mobility/Tr deficit: Mobility/T d 04-20 09:45:00 [place] ansfer vehicle ransfer 09:45: [id number] 00 Gait/Locomo stair PT/OT: Resolve 2019-04-20 [place] tion management Gait/Locom d 04-20 09:45:00 [place] problems req otion 09:45: [id number] 00 Safety can be left Safety Active Gustavo alone for 2-05 [place] only short 10:30: [id number] periods 00 Allergies, Adverse Reactions, Alerts Allergy [...]
--- OUTSIDE RECORDS SUMMARY | 2019-04-28 20:59 | XMS REPORT ---
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 [...] Pain Mgmt Active 2018-03 Aleta pain 05-15 [place] 09:55: [id number] Respiratory dyspnea Respirator Active 2018-03 Aleta present y 05-15 [place] 09:55: [id number] 00 Respiratory CPAP Respirator Active 2018-03 Aleta treatments y 05-15 [place] in home 09:55: [id number] 00 Endo/Richard diabetic Endo/Richard Resolve 2018-032019-04-05 Aleta foot care d 05-15 10:20:00 [place] 09:55: [id number] 00 Endo/Richard anti-coagul Endo/Richard Resolve 2018-032019-04-05 Aleta ation d 05-15 10:20:00 [place] therapy 09:55: [id number] 00 Sensory impaired Sensory Active 2018-03 Aleta hearing 05-15 [place] 09:55: [id number] 00 Integument skin Integument Active 2018-03 Aleta integrity 05-15 [place] risk 09:55: [id number] 00 Nutrition nutritional Nutrition Resolve 2018-032019-03-31 Aleta restriction d 05-15 10:40:00 [place] s 09:55: [id number] 00 Elimination catheter Eliminatio Active 2018-03 Aleta present n 05-15 [place] 09:55: [id number] 00 Neuro confusion Neuro/Emot Active 2018-03 Aleta present ion 05-15 [place] 09:55: [id number] 00 Neuro impaired Neuro/Emot Active 2018-03 Aleta decision-ma ion 05-15 [place] trevor 09:55: [id number] 00 Activity ADL Activity Active 2018-03 Aleta assistance 05-15 [place] required 09:55: [id number] 00 Activity self-care Activity Resolve 2018-032019-04-07 Aleta deficit d 05-15 10:30:00 [place] 09:55: [id number] 00 Safety structural Safety Active 2018-03 Aleta barriers 05-15 [place] present 09:55: [id number] 00 Safety fall risk Safety Active 2018-03 Aleta factor 05-15 [place] present 09:55: [id number] 00 Safety risk for Safety Active 2018-03 Aleta hospitaliza 05-15 [place] tion 09:55: [id number] 00 Medication oral med Meds Resolve 2018-032019-04-05 Aleta assistance d 05-15 10:20:00 [place] required 09:55: [id number] 00 Musculoskel transfer Musculoske Active 2018-03 Aleta etal assistance letal 05-15 [place] required 09:55: [id number] 00 Musculoskel requires Musculoske Active 2018-03 Aleta etal human letal 05-15 [place] assist to 09:55: [id number] leave home 00 Bed transfer PT/OT: Bed Active 2018-03 [place] Mobility/Tr deficit: Mobility/T 2-24 [place] ansfer sit/stand ransfer 11:22: [id number] 00 Bed transfer PT/OT: Bed Active 2018-03 [place] Mobility/Tr deficit: Mobility/T 2-24 [place] ansfer standing ransfer 11:22: [id number] pivot 00 Bed transfer PT/OT: Bed Active 2018-03 [place] Mobility/Tr deficit: Mobility/T 2-24 [place] ansfer toilet/comm ransfer 11:22: [id number] ode 00 Bed knowledge/s PT/OT: Bed Active 2018-03 [place] Mobility/Tr kill Mobility/T 2-24 [place] ansfer deficit: pt ransfer 11:22: [id number] 00 Bed bed PT/OT: Bed Active 2018-03 [place] Mobility/Tr mobility Mobility/T 2-24 [place] ansfer deficit ransfer 11:22: [id number] 00 Balance/End balance/charge master coordinator PT/OT: Active 2018-03 [place] urance rdination Balance/En 2-24 [place] deficit durance 11:22: [id number] 00 Balance/End endurance PT/OT: Active 2018-03 [place] urance deficit Balance/En 2-24 [place] durance 11:22: [id number] 00 Balance/End knowledge/s PT/OT: Active 2018-03 [place] urance kill Balance/En 2-24 [place] deficit: pt durance 11:22: [id number] 00 Gait/Locomo gait PT/OT: Active 2018-03 [place] tion assistive Gait/Locom 2-24 [place] problems device otion 11:22: [id number] present 00 Gait/Locomo gait PT/OT: Active 2018-03 [place] tion deficit Gait/Locom 2-24 [place] problems otion 11:22: [id number] 00 Gait/Locomo knowledge/s PT/OT: Active 2018-03 [place] tion kill Gait/Locom 2-24 [place] problems deficit: pt otion 11:22: [id number] 00 Cardio pacemaker/I Cardiovasc Active Jonna BYRNE [...]
--- OUTSIDE RECORDS SUMMARY | 2019-04-28 20:59 | XMS REPORT ---
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 Pain frequent Pain Mgmt Active 2018-03 Aleta pain 05-15 [place] 09:55: [id number] 00 Respiratory dyspnea Respirator Active 2018-03 Aleta present y 05-15 [place] 09:55: [id number] 00 Respiratory CPAP Respirator Active 2018-03 Aleta treatments y 05-15 [place] in home 09:55: [id number] 00 Endo/Richard diabetic Endo/Richard Resolve 2018-032019-04-05 Aleta foot care d 05-15 10:20:00 [place] 09:55: [id number] 00 Endo/Richard anti-coagul Endo/Richard Resolve 2018-032019-04-05 Aleta ation d 05-15 10:20:00 [place] therapy 09:55: [id number] 00 Sensory impaired Sensory Active 2018-03 Aleta hearing 05-15 [place] 09:55: [id number] 00 Integument skin Integument Active 2018-03 Aleta integrity 05-15 [place] risk 09:55: [id number] 00 Nutrition nutritional Nutrition Resolve 2018-032019-03-31 Aleta restriction d 05-15 10:40:00 [place] s 09:55: [id number] 00 Elimination catheter Eliminatio Active 2018-03 Aleta present n 05-15 [place] 09:55: [id number] 00 Neuro confusion Neuro/Emot Active 2018-03 Aleta present ion 05-15 [place] 09:55: [id number] 00 Neuro impaired Neuro/Emot Active 2018-03 Aleta decision-ma ion 05-15 [place] trevor 09:55: [id number] 00 Activity ADL Activity Active 2018-03 Aleta assistance 05-15 [place] required 09:55: [id number] 00 Activity self-care Activity Resolve 2018-032019-04-07 Aleta deficit d 05-15 10:30:00 [place] 09:55: [id number] 00 Safety structural Safety Active 2018-03 Aleta barriers 05-15 [place] present 09:55: [id number] 00 Safety fall risk Safety Active 2018-03 Aleta factor 05-15 [place] present 09:55: [id number] 00 Safety risk for Safety Active 2018-03 Aleta hospitaliza 05-15 [place] tion 09:55: [id number] 00 Medication oral med Meds Resolve 2018-032019-04-05 Aleta assistance d 05-15 10:20:00 [place] required 09:55: [id number] 00 Musculoskel transfer Musculoske Active 2018-03 Aleta etal assistance letal 05-15 [place] required 09:55: [id number] 00 Musculoskel requires Musculoske Active 2018-03 Aleta etal human letal 05-15 [place] assist to 09:55: [id number] leave home 00 Bed transfer PT/OT: Bed Active 2018-03 [place] Mobility/Tr deficit: Mobility/T 2-24 [place] ansfer sit/stand ransfer 11:22: [id number] 00 Bed transfer PT/OT: Bed Active 2018-03 [place] Mobility/Tr deficit: Mobility/T 2-24 [place] ansfer standing ransfer 11:22: [id number] pivot 00 Bed transfer PT/OT: Bed Active 2018-03 [place] Mobility/Tr deficit: Mobility/T 2-24 [place] ansfer toilet/comm ransfer 11:22: [id number] ode 00 Bed knowledge/s PT/OT: Bed Active 2018-03 [place] Mobility/Tr kill Mobility/T 2-24 [place] ansfer deficit: pt ransfer 11:22: [id number] 00 Bed bed PT/OT: Bed Active 2018-03 [place] Mobility/Tr mobility Mobility/T 2-24 [place] ansfer deficit ransfer 11:22: [id number] 00 Balance/End balance/outpatient program coordinator PT/OT: Active 2018-03 [place] urance rdination Balance/En 2-24 [place] deficit durance 11:22: [id number] 00 Balance/End endurance PT/OT: Active 2018-03 [place] urance deficit Balance/En 2-24 [place] durance 11:22: [id number] 00 Balance/End knowledge/s PT/OT: Active 2018-03 [place] urance kill Balance/En 2-24 [place] deficit: pt durance 11:22: [id number] 00 Gait/Locomo gait PT/OT: Active 2018-03 [place] tion assistive Gait/Locom 2-24 [place] problems device otion 11:22: [id number] present 00 Gait/Locomo gait PT/OT: Active 2018-03 [place] tion deficit Gait/Locom 2-24 [place] problems otion 11:22: [id number] 00 Gait/Locomo knowledge/s PT/OT: Active 2018-03 [place] tion kill Gait/Locom 2-24 [place] problems deficit: pt otion 11:22: [id number] 00 Cardio pacemaker/I Cardiovasc Active Jonna BYRNE [...] Observation Time Observation Value Comments SYSTOLIC mm[Hg] 2019-04-18 18:10:06 130 mm[Hg] mm[Hg] Method: Sit SYSTOLIC mm[Hg] 2019-03-14 18:09:31 122 mm[Hg] mm[Hg] Method: Stand DIASTOLIC mm[Hg] 2019-04-18 18:10:06 60 mm[Hg] mm[Hg] Method: Sit DIASTOLIC mm[Hg] 2019-03-14 18:09:31 66 mm[Hg] mm[Hg] Method: Stand PULSE 2019-04-18 18:10:06 60 /min /min RESP RATE 2019-04-12 18:10:00 18 /min /min TEMP 2019-04-18 18:10:06 99.0 [degF] Procedures This patient has no known procedures. Results This patient has no known results.
--- OUTSIDE RECORDS SUMMARY | 2019-04-28 20:59 | XMS REPORT ---
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 Pain frequent Pain Mgmt Resolve 2018-032019-04-20 Aleta pain d 05-15 09:45:00 [place] 09:55: [id number] 00 Respiratory dyspnea Respirator Active 2018-03 Aleta present y 05-15 [place] 09:55: [id number] 00 Respiratory CPAP Respirator Active 2018-03 Aleta treatments y 05-15 [place] in home 09:55: [id number] 00 Endo/Richard diabetic Endo/Richard Resolve 2018-032019-04-05 Aleta foot care d 05-15 10:20:00 [place] 09:55: [id number] 00 Endo/Richard anti-coagul Endo/Richard Resolve 2018-032019-04-05 Aleta ation d 05-15 10:20:00 [place] therapy 09:55: [id number] 00 Sensory impaired Sensory Active 2018-03 Aleta hearing 05-15 [place] 09:55: [id number] 00 Integument skin Integument Active 2018-03 Aleta integrity 05-15 [place] risk 09:55: [id number] 00 Nutrition nutritional Nutrition Resolve 2018-032019-03-31 Aleta restriction d 05-15 10:40:00 [facility] 09:55: [id number] 00 Elimination catheter Eliminatio Active 2018-03 Aleta present n 05-15 [place] 09:55: [id number] 00 Neuro confusion Neuro/Emot Active 2018-03 Aleta present ion 05-15 [place] 09:55: [id number] 00 Neuro impaired Neuro/Emot Active 2018-03 Aleta decision-ma ion 05-15 [place] trevor 09:55: [id number] 00 Activity ADL Activity Active 2018-03 Aleta assistance 05-15 [place] required 09:55: [id number] 00 Activity self-care Activity Resolve 2018-032019-04-07 Aleta deficit d 05-15 10:30:00 [place] 09:55: [id number] 00 Safety structural Safety Active 2018-03 Aleta barriers 05-15 [place] present 09:55: [id number] 00 Safety fall risk Safety Active 2018-03 Aleta factor 05-15 [place] present 09:55: [id number] 00 Safety risk for Safety Active 2018-03 Aleta hospitaliza 05-15 [place] tion 09:55: [id number] 00 Medication oral med Meds Resolve 2018-032019-04-05 Aleta assistance d 2- 10:20:00 [place] required 09:55: [id number] 00 Musculoskel transfer Musculoske Active 2018-03 Aleta etal assistance letal 05-15 [place] required 09:55: [id number] 00 Musculoskel requires Musculoske Active 2018-03 Aleta etal human letal 05-15 [place] assist to 09:55: [id number] leave home 00 Bed transfer PT/OT: Bed Resolve 2018-032019-04-20 [place] Mobility/Tr deficit: Mobility/T d 2-24 09:45:00 Jacksonabigail prieto sit/stand ransfer 11:22: [id number] 00 Bed transfer PT/OT: Bed Resolve 2018-032019-04-20 [place] Mobility/Tr deficit: Mobility/T d 2-24 09:45:00 Renetta prieto standing ransfer 11:22: [id number] pivot 00 Bed transfer PT/OT: Bed Resolve 2018-032019-04-20 [place] Mobility/Tr deficit: Mobility/T d 2-24 09:45:00 Jacksonabigail lofer toilet/comm ransfer 11:22: [id number] ode 00 Bed knowledge/s PT/OT: Bed Resolve 2018-032019-04-20 [place] Mobility/Tr kill Mobility/T d 2-24 09:45:00 [place] ansfer deficit: pt ransfer 11:22: [id number] 00 Bed bed PT/OT: Bed Resolve 2018-032019-04-20 [place] Mobility/Tr mobility Mobility/T d 2-24 09:45:00 [place] ansfer deficit ransfer 11:22: [id number] 00 Balance/End balance/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 wellness/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 coordinator PT/OT: Resolve 2018-032019-04-20 [place] urance rdination Balance/En d 2-24 09:45:00 [place] deficit durance 11:22: [id number] 00 Balance/End endurance PT/OT: Resolve 2018-032019-04-20 [place] urance deficit Balance/En d 2-24 09:45:00 [place] durance 11:22: [id number] 00 Balance/End knowledge/s PT/OT: Resolve 2018-032019-04-20 [place] hough Balance/En d 24 09:45:00 [place] deficit: pt durance 11:22: [id number] 00 Gait/Locomo gait PT/OT: Resolve 2018-032019-04-20 [place] tion assistive Gait/Locom d 2-24 09:45:00 [place] problems device otion 11:22: [id number] present 00 Gait/Locomo gait PT/OT: Resolve 2018-032019-04-20 [place] tion deficit Gait/Locom d 05-15 09:45:00 [place] problems otion 11:22: [id number] 00 Gait/Locomo knowledge/s PT/OT: Resolve 2018-032019-04-20 [place] zacarias kill Gait/Locom d 05-15 09:45:00 [place] problems deficit: pt otion 11:22: [id number] 00 Cardio pacemaker/I Cardiovasc Active Jonna BYRNE ular 1-03 Carrier RN 11:30: 00 Endo/Richard knowledge/s Endo/Richard Resolve 2019-04-05 Jonna kill d 1-10 10:20:00 Carrier RN deficit 10:40: hypo/hyperg 00 lycemia: pt Bed transfer PT/OT: Bed Resolve 2019-04-20 [place] Mobility/Tr deficit: Mobility/T d 04-20 09:45:00 [place] ansfer shower/tub ransfer 09:45: [id number] 00 Bed transfer PT/OT: Bed Resolve 2019-04-20 [place] Mobility/Tr deficit: Mobility/T d 04-20 09:45:00 [place] ansfer vehicle ransfer 09:45: [id number] 00 Gait/Locomo stair PT/OT: Resolve 2019-04-20 [place] tion management Gait/Locom d 04-20 09:45:00 [place] problems req otion 09:45: [id number] 00 Allergies, Adverse Reactions, Alerts Allergy Name [...] tablet 1 mg tablet 05-15 Suzette TORREZ Vitamin Vitamin 2018-03 Yes [place] Unknown Unknown B-12 500 B-12 500 05-15 Sandra TORREZeri mcg tablet mcg tablet ne Aspirin Low Aspirin Low 2018-03 Yes [place] Unknown Unknown Dose 81 mg Dose 81 mg 24 Suzette TORREZ tablet,solomon tablet,solomon ne yed release yed release digoxin 125 digoxin 125 2018-03 Yes [place] Unknown Unknown mcg (0.125 mcg (0.125 -24 ,Catheri mg) tablet mg) tablet ne finasteride finasteride 2018-03 Yes [place] Unknown Unknown 5 mg tablet 5 mg tablet -24 Suzette TORREZ doxycycline doxycycline Yes Jander Unknown Unknown hyclate 100 hyclate 100 -14 ,Jewell mg capsule mg capsule tamsulosin tamsulosin Yes [...]
--- OUTSIDE RECORDS SUMMARY | 2019-04-28 20:59 | XMS REPORT ---
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 [...] Pain Mgmt Active 2018-03 Aleta pain 05-15 [place] 09:55: [id number] 00 Respiratory dyspnea Respirator Active 2018-03 Aleta present y 05-15 [place] 09:55: [id number] 00 Respiratory CPAP Respirator Active 2018-03 Aleta treatments y 05-15 [place] in home 09:55: [id number] 00 Endo/Richard diabetic Endo/Richard Resolve 2018-032019-04-05 Aleta foot care d 05-15 10:20:00 [place] 09:55: [id number] 00 Endo/Richard anti-coagul Endo/Richard Resolve 2018-032019-04-05 Aleta ation d 05-15 10:20:00 [place] therapy 09:55: [id number] 00 Sensory impaired Sensory Active 2018-03 Aleta hearing 05-15 [place] 09:55: [id number] 00 Integument skin Integument Active 2018-03 Aleta integrity 05-15 [place] risk 09:55: [id number] 00 Nutrition nutritional Nutrition Resolve 2018-032019-03-31 Aleta restriction d 05-15 10:40:00 [place] s 09:55: [id number] 00 Elimination catheter Eliminatio Active 2018-03 Aleta present n 05-15 [place] 09:55: [id number] 00 Neuro confusion Neuro/Emot Active 2018-03 Aleta present ion 05-15 [place] 09:55: [id number] 00 Neuro impaired Neuro/Emot Active 2018-03 Aleta decision-ma ion 05-15 [place] trevor 09:55: [id number] 00 Activity ADL Activity Active 2018-03 Aleta assistance 05-15 [place] required 09:55: [id number] 00 Activity self-care Activity Resolve 2018-032019-04-07 Aleta deficit d 05-15 10:30:00 [place] 09:55: [id number] 00 Safety structural Safety Active 2018-03 Aleta barriers 05-15 [place] present 09:55: [id number] 00 Safety fall risk Safety Active 2018-03 Aleta factor 05-15 [place] present 09:55: [id number] 00 Safety risk for Safety Active 2018-03 Aleta hospitaliza 05-15 [place] tion 09:55: [id number] 00 Medication oral med Meds Resolve 2018-032019-04-05 Aleta assistance d 05-15 10:20:00 [place] required 09:55: [id number] 00 Musculoskel transfer Musculoske Active 2018-03 Aleta etal assistance letal 05-15 [place] required 09:55: [id number] 00 Musculoskel requires Musculoske Active 2018-03 Aleta etal human letal 05-15 [place] assist to 09:55: [id number] leave home 00 Bed transfer PT/OT: Bed Active 2018-03 [place] Mobility/Tr deficit: Mobility/T 2-24 [place] ansfer sit/stand ransfer 11:22: [id number] 00 Bed transfer PT/OT: Bed Active 2018-03 [place] Mobility/Tr deficit: Mobility/T 2-24 [place] ansfer standing ransfer 11:22: [id number] pivot 00 Bed transfer PT/OT: Bed Active 2018-03 [place] Mobility/Tr deficit: Mobility/T 2-24 [place] ansfer toilet/comm ransfer 11:22: [id number] ode 00 Bed knowledge/s PT/OT: Bed Active 2018-03 [place] Mobility/Tr kill Mobility/T 2-24 [place] ansfer deficit: pt ransfer 11:22: [id number] 00 Bed bed PT/OT: Bed Active 2018-03 [place] Mobility/Tr mobility Mobility/T 2-24 [place] ansfer deficit ransfer 11:22: [id number] 00 Balance/End balance/sustainability project coordinator PT/OT: Active 2018-03 [place] urance rdination Balance/En 2-24 [place] deficit durance 11:22: [id number] 00 Balance/End endurance PT/OT: Active 2018-03 [place] urance deficit Balance/En 2-24 [place] durance 11:22: [id number] 00 Balance/End knowledge/s PT/OT: Active 2018-03 [place] urance kill Balance/En 2-24 [place] deficit: pt durance 11:22: [id number] 00 Gait/Locomo gait PT/OT: Active 2018-03 [place] tion assistive Gait/Locom 2-24 [place] problems device otion 11:22: [id number] present 00 Gait/Locomo gait PT/OT: Active 2018-03 [place] tion deficit Gait/Locom 2-24 [place] problems otion 11:22: [id number] 00 Gait/Locomo knowledge/s PT/OT: Active 2018-03 [place] tion kill Gait/Locom 2-24 [place] problems deficit: pt otion 11:22: [id number] 00 Cardio pacemaker/I Cardiovasc Active Jonna BYRNE [...]
--- OUTSIDE RECORDS SUMMARY | 2019-04-28 20:59 | XMS REPORT ---
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 Pain frequent Pain Mgmt Active 2018-03 Aleta pain 05-15 [place] 09:55: [id number] 00 Respiratory dyspnea Respirator Active 2018-03 Aleta present y 05-15 [place] 09:55: [id number] 00 Respiratory CPAP Respirator Active 2018-03 Aleta treatments y 05-15 [place] in home 09:55: [id number] 00 Endo/Richard diabetic Endo/Richard Resolve 2018-032019-04-05 Aleta foot care d 05-15 10:20:00 [place] 09:55: [id number] 00 Endo/Richard anti-coagul Endo/Richard Resolve 2018-032019-04-05 Aleta ation d 05-15 10:20:00 [place] therapy 09:55: [id number] 00 Sensory impaired Sensory Active 2018-03 Aleta hearing 05-15 [place] 09:55: [id number] 00 Integument skin Integument Active 2018-03 Aleta integrity 05-15 [place] risk 09:55: [id number] 00 Nutrition nutritional Nutrition Resolve 2018-032019-03-31 Aleta restriction d 05-15 10:40:00 [place] s 09:55: [id number] 00 Elimination catheter Eliminatio Active 2018-03 Aleta present n 05-15 [place] 09:55: [id number] 00 Neuro confusion Neuro/Emot Active 2018-03 Aleta present ion 05-15 [place] 09:55: [id number] 00 Neuro impaired Neuro/Emot Active 2018-03 Aleta decision-ma ion 05-15 [place] trevor 09:55: [id number] 00 Activity ADL Activity Active 2018-03 Aleta assistance 05-15 [place] required 09:55: [id number] 00 Activity self-care Activity Resolve 2018-032019-04-07 Aleta deficit d 05-15 10:30:00 [place] 09:55: [id number] 00 Safety structural Safety Active 2018-03 Aleta barriers 05-15 [place] present 09:55: [id number] 00 Safety fall risk Safety Active 2018-03 Aleta factor 05-15 [place] present 09:55: [id number] 00 Safety risk for Safety Active 2018-03 Aleta hospitaliza 05-15 [place] tion 09:55: [id number] 00 Medication oral med Meds Resolve 2018-032019-04-05 Aleta assistance d 05-15 10:20:00 [place] required 09:55: [id number] 00 Musculoskel transfer Musculoske Active 2018-03 Aleta etal assistance letal 05-15 [place] required 09:55: [id number] 00 Musculoskel requires Musculoske Active 2018-03 Aleta etal human letal 05-15 [place] assist to 09:55: [id number] leave home 00 Bed transfer PT/OT: Bed Active 2018-03 [place] Mobility/Tr deficit: Mobility/T 2-24 [place] ansfer sit/stand ransfer 11:22: [id number] 00 Bed transfer PT/OT: Bed Active 2018-03 [place] Mobility/Tr deficit: Mobility/T 2-24 [place] ansfer standing ransfer 11:22: [id number] pivot 00 Bed transfer PT/OT: Bed Active 2018-03 [place] Mobility/Tr deficit: Mobility/T 2-24 [place] ansfer toilet/comm ransfer 11:22: [id number] ode 00 Bed knowledge/s PT/OT: Bed Active 2018-03 [place] Mobility/Tr kill Mobility/T 2-24 [place] ansfer deficit: pt ransfer 11:22: [id number] 00 Bed bed PT/OT: Bed Active 2018-03 [place] Mobility/Tr mobility Mobility/T 2-24 [place] ansfer deficit ransfer 11:22: [id number] 00 Balance/End balance/vegetables cook PT/OT: Active 2018-03 [place] urance rdination Balance/En 2-24 [place] deficit durance 11:22: [id number] 00 Balance/End endurance PT/OT: Active 2018-03 [place] urance deficit Balance/En 2-24 [place] durance 11:22: [id number] 00 Balance/End knowledge/s PT/OT: Active 2018-03 [place] urance kill Balance/En 2-24 [place] deficit: pt durance 11:22: [id number] 00 Gait/Locomo gait PT/OT: Active 2018-03 [place] tion assistive Gait/Locom 2-24 [place] problems device otion 11:22: [id number] present 00 Gait/Locomo gait PT/OT: Active 2018-03 [place] tion deficit Gait/Locom 2-24 [place] problems otion 11:22: [id number] 00 Gait/Locomo knowledge/s PT/OT: Active 2018-03 [place] tion kill Gait/Locom 2-24 [place] problems deficit: pt otion 11:22: [id number] 00 Cardio pacemaker/I Cardiovasc Active Jonna BYRNE [...]
--- OUTSIDE RECORDS SUMMARY | 2019-04-28 21:00 | XMS REPORT ---
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 Pain frequent Pain Mgmt Active 2018-03 Aleta pain 05-15 [place] 09:55: [id number] Respiratory dyspnea Respirator Active 2018-03 Aleta present y 05-15 [place] 09:55: [id number] 00 Respiratory CPAP Respirator Active 2018-03 Aleta treatments y 05-15 [place] in home 09:55: [id number] 00 Endo/Richard diabetic Endo/Richard Active 2018-03 Aleta foot care 05-15 [place] 09:55: [id number] 00 Endo/Richard anti-coagul Endo/Richard Active 2018-03 Aleta ation 05-15 [place] therapy 09:55: [id number] 00 Sensory impaired Sensory Active 2018-03 Aleta hearing 05-15 [place] 09:55: [id number] 00 Integument skin Integument Active 2018-03 Aleta integrity 05-15 [place] risk 09:55: [id number] 00 Nutrition nutritional Nutrition Resolve 2018-032019-03-31 Aleta restriction d 05-15 10:40:00 [place] s 09:55: [id number] 00 Elimination catheter Eliminatio Active 2018-03 [facility] present n 05-15 [place] 09:55: [id number] 00 Neuro confusion Neuro/Emot Active 2018-03 Aleta present ion 05-15 [place] 09:55: [id number] 00 Neuro impaired Neuro/Emot Active 2018-03 Aleta decision-ma ion 05-15 [place] trevor 09:55: [id number] 00 Activity ADL Activity Active 2018-03 Aleta assistance 05-15 [place] required 09:55: [id number] 00 Activity self-care Activity Active 2018-03 Aleta deficit 05-15 [place] 09:55: [id number] 00 Safety structural Safety Active 2018-03 Aleta barriers 05-15 [place] present 09:55: [id number] 00 Safety fall risk Safety Active 2018-03 Aleta factor 05-15 [place] present 09:55: [id number] 00 Safety risk for Safety Active 2018-03 Aleta hospitaliza 05-15 [place] tion 09:55: [id number] 00 Medication oral med Meds Active 2018-03 Aleta assistance 05-15 [place] required 09:55: [id number] 00 Musculoskel transfer Musculoske Active 2018-03 Aleta etal assistance letal 05-15 [place] required 09:55: [id number] 00 Musculoskel requires Musculoske Active 2018-03 Aleta etal human letal 05-15 [place] assist to 09:55: [id number] leave home 00 Bed transfer PT/OT: Bed Active 2018-03 [place] Mobility/Tr deficit: Mobility/T 2-24 [place] ansfer sit/stand ransfer 11:22: [id number] 00 Bed transfer PT/OT: Bed Active 2018-03 [place] Mobility/Tr deficit: Mobility/T 2-24 [place] ansfer standing ransfer 11:22: [id number] pivot 00 Bed transfer PT/OT: Bed Active 2018-03 [place] Mobility/Tr deficit: Mobility/T 2-24 [place] ansfer toilet/comm ransfer 11:22: [id number] ode 00 Bed knowledge/s PT/OT: Bed Active 2018-03 [place] Mobility/Tr kill Mobility/T 2-24 [place] ansfer deficit: pt ransfer 11:22: [id number] 00 Bed bed PT/OT: Bed Active 2018-03 [place] Mobility/Tr mobility Mobility/T 2-24 [place] ansfer deficit ransfer 11:22: [id number] 00 Balance/End balance/milieu coordinator PT/OT: Active 2018-03 [place] almanzarance rdination Balance/En 2-24 [place] deficit durance 11:22: [id number] 00 Balance/End endurance PT/OT: Active 2018-03 [place] urance deficit Balance/En 2-24 [place] durance 11:22: [id number] 00 Balance/End knowledge/s PT/OT: Active 2018-03 [place] urance kill Balance/En 2-24 [place] deficit: pt durance 11:22: [id number] 00 Gait/Locomo gait PT/OT: Active 2018-03 [place] tion assistive Gait/Locom 2-24 [place] problems device otion 11:22: [id number] present 00 Gait/Locomo gait PT/OT: Active 2018-03 [place] tion deficit Gait/Locom 2-24 [place] problems otion 11:22: [id number] 00 Gait/Locomo knowledge/s PT/OT: Active 2018-03 [place] zacarias kill Gait/Locom 2-24 [place] problems deficit: pt otion 11:22: [id number] 00 Cardio pacemaker/I Cardiovasc Active Jonna BYRNE ular 1-03 Carrier RN 11:30: 00 Endo/Richard knowledge/s Endo/Richard Active Jonna kill 1-10 Carrier RN deficit 10:40: hypo/hyperg 00 lycemia: pt Allergies, Adverse Reactions, Alerts Allergy Name Allergy Status Severity Reaction(s) Onset Inactive Treating Comments Type Date Date Clinician scallops Base Active Unknown Reaction 2018-03 Nikki White Ingredient Unknown - pravastatin Base Active Unknown Reaction 2018-03 Nikki White Ingredient Unknown 24 Medications Ordered Filled Start Stop Current Ordering [...] Unknown Unknown hyclate 100 hyclate 100 1-14 MDJewell mg capsule mg capsule Vital Signs Vital Name Observation Time Observation Value Comments SYSTOLIC mm[Hg] 2019-04-06 18:09:54 140 mm[Hg] mm[Hg] Method: Sit SYSTOLIC mm[Hg] 2019-03-14 18:09:31 122 mm[Hg] mm[Hg] Method: Stand DIASTOLIC mm[Hg] 2019-04-06 18:09:54 80 mm[Hg] mm[Hg] Method: Sit DIASTOLIC mm[Hg] 2019-03-14 18:09:31 66 mm[Hg] mm[Hg] Method: Stand PULSE 2019-04-07 18:09:55 88 /min /min RESP RATE 2019-04-07 18:09:55 16 /min /min TEMP 2019-04-07 18:09:55 97.8 [degF] Procedures This patient has no known procedures. Results This patient has no known results.
--- OUTSIDE RECORDS SUMMARY | 2019-04-28 21:00 | XMS REPORT ---
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 Pain frequent Pain Mgmt Active 2018-03 Aleta pain 05-15 [place] 09:55: [id number] 00 Respiratory dyspnea Respirator Active 2018-03 Aleta present y 05-15 [place] 09:55: [id number] 00 Respiratory CPAP Respirator Active 2018-03 Aleta treatments y 05-15 [place] in home 09:55: [id number] 00 Endo/Richard diabetic Endo/Richard Active 2018-03 Aleta foot care 05-15 [place] 09:55: [id number] 00 Endo/Richard anti-coagul Endo/Richard Active 2018-03 Aleta ation 05-15 [place] therapy 09:55: [id number] 00 Sensory impaired Sensory Active 2018-03 Aleta hearing 05-15 [place] 09:55: [id number] 00 Integument skin Integument Active 2018-03 Aleta integrity 05-15 [place] risk 09:55: [id number] 00 Nutrition nutritional Nutrition Resolve 2018-032019-03-31 Aleta restriction d 05-15 10:40:00 [place] s 09:55: [id number] 00 Elimination catheter Eliminatio Active 2018-03 [facility] present n 05-15 [place] 09:55: [id number] 00 Neuro confusion Neuro/Emot Active 2018-03 Aleta present ion 05-15 [place] 09:55: [id number] 00 Neuro impaired Neuro/Emot Active 2018-03 Aleta decision-ma ion 05-15 [place] trevor 09:55: [id number] 00 Activity ADL Activity Active 2018-03 Aleta assistance 05-15 [place] required 09:55: [id number] 00 Activity self-care Activity Active 2018-03 Aleta deficit 05-15 [place] 09:55: [id number] 00 Safety structural Safety Active 2018-03 Aleta barriers 05-15 [place] present 09:55: [id number] 00 Safety fall risk Safety Active 2018-03 Aleta factor 05-15 [place] present 09:55: [id number] 00 Safety risk for Safety Active 2018-03 Laeta hospitaliza 05-15 [place] tion 09:55: [id number] 00 Medication oral med Meds Active 2018-03 Aleta assistance 05-15 [place] required 09:55: [id number] 00 Musculoskel transfer Musculoske Active 2018-03 Aleta etal assistance letal 05-15 [place] required 09:55: [id number] 00 Musculoskel requires Musculoske Active 2018-03 Aleta etal human letal 05-15 [place] assist to 09:55: [id number] leave home 00 Bed transfer PT/OT: Bed Active 2018-03 [place] Mobility/Tr deficit: Mobility/T 2-24 [place] ansfer sit/stand ransfer 11:22: [id number] 00 Bed transfer PT/OT: Bed Active 2018-03 [place] Mobility/Tr deficit: Mobility/T 2-24 [place] ansfer standing ransfer 11:22: [id number] pivot 00 Bed transfer PT/OT: Bed Active 2018-03 [place] Mobility/Tr deficit: Mobility/T 2-24 [place] ansfer toilet/comm ransfer 11:22: [id number] ode 00 Bed knowledge/s PT/OT: Bed Active 2018-03 [place] Mobility/Tr kill Mobility/T 2-24 [place] ansfer deficit: pt ransfer 11:22: [id number] 00 Bed bed PT/OT: Bed Active 2018-03 [place] Mobility/Tr mobility Mobility/T 2-24 [place] ansfer deficit ransfer 11:22: [id number] 00 Balance/End balance/dinner cook PT/OT: Active 2018-03 [place] almanzarance rdination Balance/En 2-24 [place] deficit durance 11:22: [id number] 00 Balance/End endurance PT/OT: Active 2018-03 [place] urance deficit Balance/En 2-24 [place] durance 11:22: [id number] 00 Balance/End knowledge/s PT/OT: Active 2018-03 [place] urance kill Balance/En 2-24 [place] deficit: pt durance 11:22: [id number] 00 Gait/Locomo gait PT/OT: Active 2018-03 [place] tion assistive Gait/Locom 2-24 [place] problems device otion 11:22: [id number] present 00 Gait/Locomo gait PT/OT: Active 2018-03 [place] tion deficit Gait/Locom 2-24 [place] problems otion 11:22: [id number] 00 Gait/Locomo knowledge/s PT/OT: Active 2018-03 [place] zacarias kill Gait/Locom 2-24 [place] problems deficit: pt otion 11:22: [id number] 00 Cardio pacemaker/I Cardiovasc Active Jonna BYRNE [...] Observation Time Observation Value Comments SYSTOLIC mm[Hg] 2019-04-04 18:09:52 130 mm[Hg] mm[Hg] Method: Sit SYSTOLIC mm[Hg] 2019-03-14 18:09:31 122 mm[Hg] mm[Hg] Method: Stand DIASTOLIC mm[Hg] 2019-04-04 18:09:52 60 mm[Hg] mm[Hg] Method: Sit DIASTOLIC mm[Hg] 2019-03-14 18:09:31 66 mm[Hg] mm[Hg] Method: Stand PULSE 2019-04-04 18:09:52 80 /min /min RESP RATE 2019-03-31 18:09:48 16 /min /min TEMP 2019-04-04 18:09:52 97.9 [degF] Procedures This patient has no known procedures. Results This patient has no known results.
--- OUTSIDE RECORDS SUMMARY | 2019-04-28 21:00 | XMS REPORT ---
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 Pain frequent Pain Mgmt Active 2018-03 Aleta pain 05-15 [place] 09:55: [id number] 00 Respiratory dyspnea Respirator Active 2018-03 Aleta present y 05-15 [place] 09:55: [id number] 00 Respiratory CPAP Respirator Active 2018-03 Aleta treatments y 05-15 [place] in home 09:55: [id number] 00 Endo/Richard diabetic Endo/Richard Active 2018-03 Aleta foot care 05-15 [place] 09:55: [id number] 00 Endo/Richard anti-coagul Endo/Richard Active 2018-03 Aleta ation 05-15 [place] therapy 09:55: [id number] 00 Sensory impaired Sensory Active 2018-03 Aleta hearing 05-15 [place] 09:55: [id number] 00 Integument skin Integument Active 2018-03 Aleta integrity 05-15 [place] risk 09:55: [id number] 00 Nutrition nutritional Nutrition Active 2018-03 Aleta restriction 05-15 [place] s 09:55: [id number] 00 Elimination catheter Eliminatio Active 2018-03 [facility] present n 05-15 [place] 09:55: [id number] 00 Neuro confusion Neuro/Emot Active 2018-03 Aleta present ion 05-15 [place] 09:55: [id number] 00 Neuro impaired Neuro/Emot Active 2018-03 Aleta decision-ma ion 05-15 [place] trevor 09:55: [id number] 00 Activity ADL Activity Active 2018-03 Aleta assistance 05-15 [place] required 09:55: [id number] 00 Activity self-care Activity Active 2018-03 Aleta deficit 05-15 [place] 09:55: [id number] 00 Safety structural Safety Active 2018-03 Aleta barriers 05-15 [place] present 09:55: [id number] 00 Safety fall risk Safety Active 2018-03 Aleta factor 05-15 [place] present 09:55: [id number] 00 Safety risk for Safety Active 2018-03 Aleta hospitaliza 05-15 [place] tion 09:55: [id number] 00 Medication oral med Meds Active 2018-03 Aleta assistance 05-15 [place] required 09:55: [id number] 00 Musculoskel transfer Musculoske Active 2018-03 Aleta etal assistance letal 05-15 [place] required 09:55: [id number] 00 Musculoskel requires Musculoske Active 2018-03 Aleta etal human letal 05-15 [place] assist to 09:55: [id number] leave home 00 Bed transfer PT/OT: Bed Active 2018-03 [place] Mobility/Tr deficit: Mobility/T 2-24 [place] ansfer sit/stand ransfer 11:22: [id number] 00 Bed transfer PT/OT: Bed Active 2018-03 [place] Mobility/Tr deficit: Mobility/T 2-24 [place] ansfer standing ransfer 11:22: [id number] pivot 00 Bed transfer PT/OT: Bed Active 2018-03 [place] Mobility/Tr deficit: Mobility/T 2-24 [place] ansfer toilet/comm ransfer 11:22: [id number] ode 00 Bed knowledge/s PT/OT: Bed Active 2018-03 [place] Mobility/Tr kill Mobility/T 2-24 [place] ansfer deficit: pt ransfer 11:22: [id number] 00 Bed bed PT/OT: Bed Active 2018-03 [place] Mobility/Tr mobility Mobility/T 2-24 [place] ansfer deficit ransfer 11:22: [id number] 00 Balance/End balance/technology coordinator PT/OT: Active 2018-03 [place] urance rdination Balance/En 2-24 [place] deficit durance 11:22: [id number] 00 Balance/End endurance PT/OT: Active 2018-03 [place] urance deficit Balance/En 2-24 [place] durance 11:22: [id number] 00 Balance/End knowledge/s PT/OT: Active 2018-03 [place] urance kill Balance/En 2-24 [place] deficit: pt durance 11:22: [id number] 00 Gait/Locomo gait PT/OT: Active 2018-03 [place] tion assistive Gait/Locom 2-24 [place] problems device otion 11:22: [id number] present 00 Gait/Locomo gait PT/OT: Active 2018-03 [place] tion deficit Gait/Locom 2-24 [place] problems otion 11:22: [id number] 00 Gait/Locomo knowledge/s PT/OT: Active 2018-03 [place] hough Gait/Locom 2-24 [place] problems deficit: pt otion 11:22: [id number] 00 Cardio pacemaker/I Cardiovasc Active Jonna CATY frankie 1-03 Carrier RN 11:30: 00 Allergies, Adverse Reactions, Alerts Allergy Name [...] n capsule n capsule 2-24 Suzette TORREZ acetaminoph acetaminoph 2018-03 Yes Cannariato Unknown Unknown en 325 mg en 325 mg 2-24 Suzette TORREZ tablet tablet ne glimepiride glimepiride 2018-03 Yes Cannariato Unknown Unknown 1 mg tablet 1 mg tablet 2-24 Suzette TORREZ Vitamin Vitamin 2018-03 Yes Cannariato [...] tablet 5 mg tablet 2-24 Suzette TORREZ Vital Signs Vital Name Observation Time Observation Value Comments SYSTOLIC mm[Hg] 2019-03-30 18:09:47 110 mm[Hg] mm[Hg] Method: Sit SYSTOLIC mm[Hg] 2019-03-14 18:09:31 122 mm[Hg] mm[Hg] Method: Stand DIASTOLIC mm[Hg] 2019-03-30 18:09:47 60 mm[Hg] mm[Hg] Method: Sit DIASTOLIC mm[Hg] 2019-03-14 18:09:31 66 mm[Hg] mm[Hg] Method: Stand PULSE 2019-03-30 18:09:47 88 /min /min RESP RATE 2019-03-24 18:09:41 16 /min /min TEMP 2019-03-30 18:09:47 98.4 [degF] Procedures This patient has no known procedures. Results This patient has no known results.
--- OUTSIDE RECORDS SUMMARY | 2019-04-28 21:00 | XMS REPORT ---
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 Pain frequent Pain Mgmt Active 2018-03 Aleta pain 05-15 [place] 09:55: [id number] 00 Respiratory dyspnea Respirator Active 2018-03 Aleta present y 05-15 [place] 09:55: [id number] 00 Respiratory CPAP Respirator Active 2018-03 Aleta treatments y 05-15 [place] in home 09:55: [id number] 00 Endo/Richard diabetic Endo/Richard Resolve 2018-032019-04-05 Aleta foot care d 05-15 10:20:00 [place] 09:55: [id number] 00 Endo/Richard anti-coagul Endo/Richard Resolve 2018-032019-04-05 Aleta ation d 05-15 10:20:00 [place] therapy 09:55: [id number] 00 Sensory impaired Sensory Active 2018-03 Aleta hearing 05-15 [place] 09:55: [id number] 00 Integument skin Integument Active 2018-03 Aleta integrity 05-15 [place] risk 09:55: [id number] 00 Nutrition nutritional Nutrition Resolve 2018-032019-03-31 Aleta restriction d 05-15 10:40:00 [place] s 09:55: [id number] 00 Elimination catheter Eliminatio Active 2018-03 Aleta present n 05-15 [place] 09:55: [id number] 00 Neuro confusion Neuro/Emot Active 2018-03 Aleta present ion 05-15 [place] 09:55: [id number] 00 Neuro impaired Neuro/Emot Active 2018-03 Aleta decision-ma ion 05-15 [place] trevor 09:55: [id number] 00 Activity ADL Activity Active 2018-03 Aleta assistance 05-15 [place] required 09:55: [id number] 00 Activity self-care Activity Resolve 2018-032019-04-07 Aleta deficit d 05-15 10:30:00 [place] 09:55: [id number] 00 Safety structural Safety Active 2018-03 Aleta barriers 05-15 [place] present 09:55: [id number] 00 Safety fall risk Safety Active 2018-03 Aleta factor 05-15 [place] present 09:55: [id number] 00 Safety risk for Safety Active 2018-03 Aleta hospitaliza 05-15 [place] tion 09:55: [id number] 00 Medication oral med Meds Resolve 2018-032019-04-05 Aleta assistance d 05-15 10:20:00 [place] required 09:55: [id number] 00 Musculoskel transfer Musculoske Active 2018-03 Aleta etal assistance letal 05-15 [place] required 09:55: [id number] 00 Musculoskel requires Musculoske Active 2018-03 Aleta etal human letal 05-15 [place] assist to 09:55: [id number] leave home 00 Bed transfer PT/OT: Bed Active 2018-03 [place] Mobility/Tr deficit: Mobility/T 2-24 [place] ansfer sit/stand ransfer 11:22: [id number] 00 Bed transfer PT/OT: Bed Active 2018-03 [place] Mobility/Tr deficit: Mobility/T 2-24 [place] ansfer standing ransfer 11:22: [id number] pivot 00 Bed transfer PT/OT: Bed Active 2018-03 [place] Mobility/Tr deficit: Mobility/T 2-24 [place] ansfer toilet/comm ransfer 11:22: [id number] ode 00 Bed knowledge/s PT/OT: Bed Active 2018-03 [place] Mobility/Tr kill Mobility/T 2-24 [place] ansfer deficit: pt ransfer 11:22: [id number] 00 Bed bed PT/OT: Bed Active 2018-03 [place] Mobility/Tr mobility Mobility/T 2-24 [place] ansfer deficit ransfer 11:22: [id number] 00 Balance/End balance/perinatal coordinator PT/OT: Active 2018-03 [place] urance rdination Balance/En 2-24 [place] deficit durance 11:22: [id number] 00 Balance/End endurance PT/OT: Active 2018-03 [place] urance deficit Balance/En 2-24 [place] durance 11:22: [id number] 00 Balance/End knowledge/s PT/OT: Active 2018-03 [place] urance kill Balance/En 2-24 [place] deficit: pt durance 11:22: [id number] 00 Gait/Locomo gait PT/OT: Active 2018-03 [place] tion assistive Gait/Locom 2-24 [place] problems device otion 11:22: [id number] present 00 Gait/Locomo gait PT/OT: Active 2018-03 [place] tion deficit Gait/Locom 2-24 [place] problems otion 11:22: [id number] 00 Gait/Locomo knowledge/s PT/OT: Active 2018-03 [place] tion kill Gait/Locom 2-24 [place] problems deficit: pt otion 11:22: [id number] 00 Cardio pacemaker/I Cardiovasc Active Jonna BYRNE [...] Observation Time Observation Value Comments SYSTOLIC mm[Hg] 2019-04-10 18:09:58 118 mm[Hg] mm[Hg] Method: Sit SYSTOLIC mm[Hg] 2019-03-14 18:09:31 122 mm[Hg] mm[Hg] Method: Stand DIASTOLIC mm[Hg] 2019-04-10 18:09:58 66 mm[Hg] mm[Hg] Method: Sit DIASTOLIC mm[Hg] 2019-03-14 18:09:31 66 mm[Hg] mm[Hg] Method: Stand PULSE 2019-04-07 18:09:55 88 /min /min RESP RATE 2019-04-07 18:09:55 16 /min /min TEMP 2019-04-07 18:09:55 97.8 [degF] Procedures This patient has no known procedures. Results This patient has no known results.
--- OUTSIDE RECORDS SUMMARY | 2019-04-28 21:00 | XMS REPORT ---
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 Pain frequent Pain Mgmt Active 2018-03 Aleta pain 05-15 [place] 09:55: [id number] 00 Respiratory dyspnea Respirator Active 2018-03 Aleta present y 05-15 [place] 09:55: [id number] 00 Respiratory CPAP Respirator Active 2018-03 Aleta treatments y 05-15 [place] in home 09:55: [id number] 00 Endo/Richard diabetic Endo/Richard Resolve 2018-032019-04-05 Aleta foot care d 05-15 10:20:00 [place] 09:55: [id number] 00 Endo/Richard anti-coagul Endo/Richard Resolve 2018-032019-04-05 Aleta ation d 05-15 10:20:00 [place] therapy 09:55: [id number] 00 Sensory impaired Sensory Active 2018-03 Aleta hearing 05-15 [place] 09:55: [id number] 00 Integument skin Integument Active 2018-03 Aleta integrity 05-15 [place] risk 09:55: [id number] 00 Nutrition nutritional Nutrition Resolve 2018-032019-03-31 Aleta restriction d 05-15 10:40:00 [place] s 09:55: [id number] 00 Elimination catheter Eliminatio Active 2018-03 Aleta present n 05-15 [place] 09:55: [id number] 00 Neuro confusion Neuro/Emot Active 2018-03 Aleta present ion 05-15 [place] 09:55: [id number] 00 Neuro impaired Neuro/Emot Active 2018-03 Aleta decision-ma ion 05-15 [place] trevor 09:55: [id number] 00 Activity ADL Activity Active 2018-03 Aleta assistance 05-15 [place] required 09:55: [id number] 00 Activity self-care Activity Resolve 2018-032019-04-07 Aleta deficit d 05-15 10:30:00 [place] 09:55: [id number] 00 Safety structural Safety Active 2018-03 Aleta barriers 05-15 [place] present 09:55: [id number] 00 Safety fall risk Safety Active 2018-03 Aleta factor 05-15 [place] present 09:55: [id number] 00 Safety risk for Safety Active 2018-03 Aleta hospitaliza 05-15 [place] tion 09:55: [id number] 00 Medication oral med Meds Resolve 2018-032019-04-05 Aleta assistance d 05-15 10:20:00 [place] required 09:55: [id number] 00 Musculoskel transfer Musculoske Active 2018-03 Aleta etal assistance letal 05-15 [place] required 09:55: [id number] 00 Musculoskel requires Musculoske Active 2018-03 Aleta etal human letal 05-15 [place] assist to 09:55: [id number] leave home 00 Bed transfer PT/OT: Bed Active 2018-03 [place] Mobility/Tr deficit: Mobility/T 2-24 [place] ansfer sit/stand ransfer 11:22: [id number] 00 Bed transfer PT/OT: Bed Active 2018-03 [place] Mobility/Tr deficit: Mobility/T 2-24 [place] ansfer standing ransfer 11:22: [id number] pivot 00 Bed transfer PT/OT: Bed Active 2018-03 [place] Mobility/Tr deficit: Mobility/T 2-24 [place] ansfer toilet/comm ransfer 11:22: [id number] ode 00 Bed knowledge/s PT/OT: Bed Active 2018-03 [place] Mobility/Tr kill Mobility/T 2-24 [place] ansfer deficit: pt ransfer 11:22: [id number] 00 Bed bed PT/OT: Bed Active 2018-03 [place] Mobility/Tr mobility Mobility/T 2-24 [place] ansfer deficit ransfer 11:22: [id number] 00 Balance/End balance/educational resource coordinator PT/OT: Active 2018-03 [place] urance rdination Balance/En 2-24 [place] deficit durance 11:22: [id number] 00 Balance/End endurance PT/OT: Active 2018-03 [place] urance deficit Balance/En 2-24 [place] durance 11:22: [id number] 00 Balance/End knowledge/s PT/OT: Active 2018-03 [place] urance kill Balance/En 2-24 [place] deficit: pt durance 11:22: [id number] 00 Gait/Locomo gait PT/OT: Active 2018-03 [place] tion assistive Gait/Locom 2-24 [place] problems device otion 11:22: [id number] present 00 Gait/Locomo gait PT/OT: Active 2018-03 [place] tion deficit Gait/Locom 2-24 [place] problems otion 11:22: [id number] 00 Gait/Locomo knowledge/s PT/OT: Active 2018-03 [place] tion kill Gait/Locom 2-24 [place] problems deficit: pt otion 11:22: [id number] 00 Cardio pacemaker/I Cardiovasc Active Jonna BYRNE [...] Observation Time Observation Value Comments SYSTOLIC mm[Hg] 2019-04-11 18:09:59 120 mm[Hg] mm[Hg] Method: Sit SYSTOLIC mm[Hg] 2019-03-14 18:09:31 122 mm[Hg] mm[Hg] Method: Stand DIASTOLIC mm[Hg] 2019-04-11 18:09:59 52 mm[Hg] mm[Hg] Method: Sit DIASTOLIC mm[Hg] 2019-03-14 18:09:31 66 mm[Hg] mm[Hg] Method: Stand PULSE 2019-04-11 18:09:59 84 /min /min RESP RATE 2019-04-07 18:09:55 16 /min /min TEMP 2019-04-11 18:09:59 98.6 [degF] Procedures This patient has no known procedures. Results This patient has no known results.
--- OUTSIDE RECORDS SUMMARY | 2019-04-28 21:00 | XMS REPORT ---
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 without [...] Pain Mgmt Active 2018-03 [facility] pain 05-15 [place] 09:55: [id number] 00 Respiratory dyspnea Respirator Active 2018-03 [facility] present y 05-15 [place] 09:55: [id number] 00 Respiratory CPAP Respirator Active 2018-03 [facility] treatments y 05-15 [place] in home 09:55: [id number] Endo/Richard diabetic Endo/Richard Active 2018-03 [facility] foot care 05-15 [place] 09:55: [id number] 00 Endo/Richard anti-coagul Endo/Richard Active 2018-03 [facility] ation 05-15 [place] therapy 09:55: [id number] 00 Sensory impaired Sensory Active 2018-03 [facility] hearing 05-15 [place] 09:55: [id number] 00 Integument skin Integument Active 2018-03 [facility] integrity 05-15 [place] risk 09:55: [id number] 00 Nutrition nutritional Nutrition Resolve 2018-032019-03-31 [facility] restriction d 05-15 10:40:00 [place] s 09:55: [id number] 00 Elimination catheter Eliminatio Active 2018-03 [facility] present n 05-15 [place] 09:55: [id number] 00 Neuro confusion Neuro/Emot Active 2018-03 [facility] present ion 05-15 [place] 09:55: [id number] 00 Neuro impaired Neuro/Emot Active 2018-03 [facility] decision-ma ion 05-15 [place] trevor 09:55: [id number] 00 Activity ADL Activity Active 2018-03 [facility] assistance 05-15 [place] required 09:55: [id number] 00 Activity self-care Activity Active 2018-03 [facility] deficit 05-15 [place] 09:55: [id number] 00 Safety structural Safety Active 2018-03 [facility] barriers 05-15 [place] present 09:55: [id number] 00 Safety fall risk Safety Active 2018-03 [facility] factor 05-15 [place] present 09:55: [id number] 00 Safety risk for Safety Active 2018-03 [facility] hospitaliza 05-15 [place] tion 09:55: [id number] 00 Medication oral med Meds Active 2018-03 [facility] assistance 05-15 [place] required 09:55: [id number] 00 Musculoskel transfer Musculoske Active 2018-03 [facility] etal assistance letal 05-15 [place] required 09:55: [id number] 00 Musculoskel requires Musculoske Active 2018-03 [facility] etal human letal 05-15 [place] assist to 09:55: [id number] leave home 00 Bed transfer PT/OT: Bed Active 2018-03 [place] Mobility/Tr deficit: Mobility/T 2-24 [facility] ans[facility] sit/stand ransfer 11:22: [id number] 00 Bed transfer PT/OT: Bed Active 2018-03 [place] Mobility/Tr deficit: Mobility/T 2-24 [facility] ans[facility] standing ransfer 11:22: [id number] pivot 00 Bed transfer PT/OT: Bed Active 2018-03 [place] Mobility/Tr deficit: Mobility/T 2-24 [facility] toilet/comm ransfer 11:22: [id number] ode 00 Bed knowledge/s PT/OT: Bed Active 2018-03 [place] Mobility/Tr kill Mobility/T 2-24 [facility] ans[facility] deficit: pt ransfer 11:22: [id number] 00 Bed bed PT/OT: Bed Active 2018-03 [place] Mobility/Tr mobility Mobility/T 2-24 [facility] ans[facility] deficit ransfer 11:22: [id number] 00 Balance/End balance/foundation coordinator PT/OT: Active 2018-03 [place] almanzarance rdination Balance/En 2-24 [facility] deficit durance 11:22: [id number] 00 Balance/End endurance PT/OT: Active 2018-03 [place] urance deficit Balance/En 2-24 [place] durance 11:22: [id number] 00 Balance/End knowledge/s PT/OT: Active 2018-03 [place] urance kill Balance/En 2-24 [facility] deficit: pt durance 11:22: [id number] 00 Gait/Locomo gait PT/OT: Active 2018-03 [place] tion assistive Gait/Locom 2-24 [facility] problems device otion 11:22: [id number] present 00 Gait/Locomo gait PT/OT: Active 2018-03 [place] tion deficit Gait/Locom 2-24 [facility] problems otion 11:22: [id number] 00 Gait/Locomo knowledge/s PT/OT: Active 2018-03 [place] zacarias kill Gait/Locom 2-24 [facility] problems deficit: pt otion 11:22: [id number] 00 Cardio pacemaker/I Cardiovasc Active Jonna BYRNE [...]
--- OUTSIDE RECORDS SUMMARY | 2019-04-28 21:00 | XMS REPORT ---
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 [...] Pain Mgmt Active 2018-03 [facility] pain 05-15 [place] 09:55: [id number] 00 Respiratory dyspnea Respirator Active 2018-03 [facility] present y 05-15 [place] 09:55: [id number] 00 Respiratory CPAP Respirator Active 2018-03 [facility] treatments y 05-15 [place] in home 09:55: [id number] 00 Endo/Richard diabetic Endo/Richard Active 2018-03 [facility] foot care 05-15 [place] 09:55: [id number] 00 Endo/Richard anti-coagul Endo/Richard Active 2018-03 [facility] ation 05-15 [place] therapy 09:55: [id number] 00 Sensory impaired Sensory Active 2018-03 [facility] hearing 05-15 [place] 09:55: [id number] 00 Integument skin Integument Active 2018-03 [facility] integrity 05-15 [place] risk 09:55: [id number] 00 Nutrition nutritional Nutrition Active 2018-03 [facility] restriction 05-15 [place] s 09:55: [id number] 00 Elimination catheter Eliminatio Active 2018-03 [facility] present n 05-15 [place] 09:55: [id number] 00 Neuro confusion Neuro/Emot Active 2018-03 [facility] present ion 05-15 [place] 09:55: [id number] 00 Neuro impaired Neuro/Emot Active 2018-03 [facility] decision-ma ion 05-15 [place] trevor 09:55: [id number] 00 Activity ADL Activity Active 2018-03 [facility] assistance 05-15 [place] required 09:55: [id number] 00 Activity self-care Activity Active 2018-03 [facility] deficit 05-15 [place] 09:55: [id number] 00 Safety structural Safety Active 2018-03 [facility] barriers 05-15 [place] present 09:55: [id number] 00 Safety fall risk Safety Active 2018-03 [facility] factor 05-15 [place] present 09:55: [id number] 00 Safety risk for Safety Active 2018-03 [facility] hospitaliza 05-15 [place] tion 09:55: [id number] 00 Medication oral med Meds Active 2018-03 [facility] assistance 05-15 [place] required 09:55: [id number] 00 Musculoskel transfer Musculoske Active 2018-03 [facility] etal assistance letal 05-15 [place] required 09:55: [id number] 00 Musculoskel requires Musculoske Active 2018-03 [facility] etal human letal 05-15 [place] assist to 09:55: [id number] leave home 00 Bed transfer PT/OT: Bed Active 2018-03 [place] Mobility/Tr deficit: Mobility/T 2-24 [facility] sit/stand ransfer 11:22: [id number] 00 Bed transfer PT/OT: Bed Active 2018-03 [place] Mobility/Tr deficit: Mobility/T 2-24 [facility] ans[facility] standing ransfer 11:22: [id number] pivot 00 Bed transfer PT/OT: Bed Active 2018-03 [place] Mobility/Tr deficit: Mobility/T 2-24 [facility] ans[facility] toilet/comm ransfer 11:22: [id number] ode 00 Bed knowledge/s PT/OT: Bed Active 2018-03 [place] Mobility/Tr kill Mobility/T 2-24 [facility] ansfer deficit: pt ransfer 11:22: [id number] 00 Bed bed PT/OT: Bed Active 2018-03 [place] Mobility/Tr mobility Mobility/T 2-24 [facility] ans[facility] deficit ransfer 11:22: [id number] 00 Balance/End balance/media services coordinator PT/OT: Active 2018-03 [place] urance rdination Balance/En 2-24 [facility] deficit durance 11:22: [id number] 00 Balance/End endurance PT/OT: Active 2018-03 [place] urance deficit Balance/En 2-24 [facility] durance 11:22: [id number] 00 Balance/End knowledge/s PT/OT: Active 2018-03 [place] urance kill Balance/En 2-24 [facility] deficit: pt durance 11:22: [id number] 00 Gait/Locomo gait PT/OT: Active 2018-03 [place] tion assistive Gait/Locom 2-24 [facility] problems device otion 11:22: [id number] present 00 Gait/Locomo gait PT/OT: Active 2018-03 [place] tion deficit Gait/Locom 2-24 [facility] problems otion 11:22: [id number] 00 Gait/Locomo knowledge/s PT/OT: Active 2018-03 [place] hough Gait/Locom 2-24 [facility] problems deficit: pt otion 11:22: [id number] 00 Cardio pacemaker/I Cardiovasc Active Jonna CATY [...] Observation Time Observation Value Comments SYSTOLIC mm[Hg] 2019-03-31 18:09:48 102 mm[Hg] mm[Hg] Method: Sit SYSTOLIC mm[Hg] 2019-03-14 18:09:31 122 mm[Hg] mm[Hg] Method: Stand DIASTOLIC mm[Hg] 2019-03-31 18:09:48 58 mm[Hg] mm[Hg] Method: Sit DIASTOLIC mm[Hg] 2019-03-14 18:09:31 66 mm[Hg] mm[Hg] Method: Stand PULSE 2019-03-31 18:09:48 70 /min /min RESP RATE 2019-03-31 18:09:48 16 /min /min TEMP 2019-03-31 18:09:48 97.5 [degF] Procedures This patient has no known procedures. Plan of Care Planned Activity Planned Date Details Comments Medication 2019-04-04 doxycycline hyclate 100 mg capsule [code = 9793404] Results This patient has no known results.
--- OUTSIDE RECORDS SUMMARY | 2019-04-28 21:00 | XMS REPORT ---
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 Pain frequent Pain Mgmt Active 2018-03 [facility] pain 05-15 [place] 09:55: [id number] 00 Respiratory dyspnea Respirator Active 2018-03 [facility] present y 05-15 [place] 09:55: [id number] 00 Respiratory CPAP Respirator Active 2018-03 [facility] treatments y 05-15 [place] in home 09:55: [id number] 00 Endo/Richard diabetic Endo/Richard Active 2018-03 [facility] foot care 05-15 [place] 09:55: [id number] 00 Endo/Richard anti-coagul Endo/Richard Active 2018-03 [facility] ation 05-15 [place] therapy 09:55: [id number] 00 Sensory impaired Sensory Active 2018-03 [facility] hearing 05-15 [place] 09:55: [id number] 00 Integument skin Integument Active 2018-03 [facility] integrity 05-15 [place] risk 09:55: [id number] 00 Nutrition nutritional Nutrition Resolve 2018-032019-03-31 [facility] restriction d 05-15 10:40:00 [place] s 09:55: [id number] 00 Elimination catheter Eliminatio Active 2018-03 [facility] present n 05-15 [place] 09:55: [id number] 00 Neuro confusion Neuro/Emot Active 2018-03 [facility] present ion 05-15 [place] 09:55: [id number] 00 Neuro impaired Neuro/Emot Active 2018-03 [facility] decision-ma ion 05-15 [place] trevor 09:55: [id number] 00 Activity ADL Activity Active 2018-03 [facility] assistance 05-15 [place] required 09:55: [id number] 00 Activity self-care Activity Active 2018-03 [facility] deficit 05-15 [place] 09:55: [id number] 00 Safety structural Safety Active 2018-03 [facility] barriers 05-15 [place] present 09:55: [id number] 00 Safety fall risk Safety Active 2018-03 [facility]ta factor 05-15 [place] present 09:55: [id number] 00 Safety risk for Safety Active 2018-03 [facility] hospitaliza 05-15 [place] tion 09:55: [id number] 00 Medication oral med Meds Active 2018-03 [facility] assistance 05-15 [place] required 09:55: [id number] 00 Musculoskel transfer Musculoske Active 2018-03 [facility] etal assistance letal 05-15 [place] required 09:55: [id number] 00 Musculoskel requires Musculoske Active 2018-03 [facility] etal human letal 05-15 [place] assist to 09:55: [id number] leave home 00 Bed transfer PT/OT: Bed Active 2018-03 [place] Mobility/Tr deficit: Mobility/T 2-24 [facility] ans[facility] sit/stand ransfer 11:22: [id number] 00 Bed transfer PT/OT: Bed Active 2018-03 [place] Mobility/Tr deficit: Mobility/T 2-24 [facility] ansfer standing ransfer 11:22: [id number] pivot 00 Bed transfer PT/OT: Bed Active 2018-03 [place] Mobility/Tr deficit: Mobility/T 2-24 [facility] ansfer toilet/comm ransfer 11:22: [id number] ode 00 Bed knowledge/s PT/OT: Bed Active 2018-03 [place] Mobility/Tr kill Mobility/T 2-24 [facility] ansfer deficit: pt ransfer 11:22: [id number] 00 Bed bed PT/OT: Bed Active 2018-03 [place] Mobility/Tr mobility Mobility/T 2-24 [facility] ansfer deficit ransfer 11:22: [id number] 00 Balance/End balance/cooper helper PT/OT: Active 2018-03 [place] almanzarance rdination Balance/En 2-24 [facility] deficit durance 11:22: [id number] 00 Balance/End endurance PT/OT: Active 2018-03 [place] urance deficit Balance/En 2-24 [facility] durance 11:22: [id number] 00 Balance/End knowledge/s PT/OT: Active 2018-03 [place] urance kill Balance/En 2-24 [facility] deficit: pt durance 11:22: [id number] 00 Gait/Locomo gait PT/OT: Active 2018-03 [place] tion assistive Gait/Locom 2-24 [facility] problems device otion 11:22: [id number] present 00 Gait/Locomo gait PT/OT: Active 2018-03 [place] tion deficit Gait/Locom 2-24 [facility] problems otion 11:22: [id number] 00 Gait/Locomo knowledge/s PT/OT: Active 2018-03 [place] zacarias kill Gait/Locom 2-24 [facility] problems deficit: pt otion 11:22: [id number] 00 Cardio pacemaker/I Cardiovasc Active Jonna BYRNE [...] 18:09:31 66 mm[Hg] mm[Hg] Method: Stand PULSE 2019-04-06 18:09:54 72 /min /min RESP RATE 2019-04-05 18:09:53 16 /min /min TEMP 2019-04-06 18:09:54 98.5 [degF] Procedures This patient has no known procedures. Results This patient has no known results.
--- OUTSIDE RECORDS SUMMARY | 2019-04-28 21:00 | XMS REPORT ---
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 Pain frequent Pain Mgmt Active 2018-03 [facility] pain 05-15 [place] 09:55: [id number] 00 Respiratory dyspnea Respirator Active 2018-03 [facility] present y 05-15 [place] 09:55: [id number] 00 Respiratory CPAP Respirator Active 2018-03 [facility] treatments y 05-15 [place] in home 09:55: [id number] 00 Endo/Richard diabetic Endo/Richard Active 2018-03 [facility] foot care 05-15 [place] 09:55: [id number] 00 Endo/Richard anti-coagul Endo/Richard Active 2018-03 [facility] ation 05-15 [place] therapy 09:55: [id number] 00 Sensory impaired Sensory Active 2018-03 [facility] hearing 05-15 [place] 09:55: [id number] 00 Integument skin Integument Active 2018-03 Aleta integrity 05-15 [place] risk 09:55: [id number] 00 Nutrition nutritional Nutrition Active 2018-03 [facility]ta restriction 05-15 [place] s 09:55: [id number] 00 Elimination catheter Eliminatio Active 2018-03 [facility] present n 05-15 [place] 09:55: [id number] 00 Neuro confusion Neuro/Emot Active 2018-03 [facility] present ion 05-15 [place] 09:55: [id number] 00 Neuro impaired Neuro/Emot Active 2018-03 [facility] decision-ma ion 05-15 [place] trevor 09:55: [id number] 00 Activity ADL Activity Active 2018-03 [facility] assistance 05-15 [place] required 09:55: [id number] 00 Activity self-care Activity Active 2018-03 Aleta deficit 05-15 [place] 09:55: [id number] 00 Safety structural Safety Active 2018-03 Aleta barriers 05-15 [place] present 09:55: [id number] 00 Safety fall risk Safety Active 2018-03 Aleta factor 05-15 [place] present 09:55: [id number] 00 Safety risk for Safety Active 2018-03 [facility] hospitaliza 05-15 [place] tion 09:55: [id number] 00 Medication oral med Meds Active 2018-03 Aleta assistance 05-15 [place] required 09:55: [id number] 00 Musculoskel transfer Musculoske Active 2018-03 [facility] etal assistance letal 05-15 [place] required 09:55: [id number] 00 Musculoskel requires Musculoske Active 2018-03 [facility] etal human letal 05-15 [place] assist to 09:55: [id number] leave home 00 Bed transfer PT/OT: Bed Active 2018-03 [place] Mobility/Tr deficit: Mobility/T 2-24 [facility] ansfer sit/stand ransfer 11:22: [id number] 00 Bed transfer PT/OT: Bed Active 2018-03 [place] Mobility/Tr deficit: Mobility/T 2-24 [facility] ansfer standing ransfer 11:22: [id number] pivot 00 Bed transfer PT/OT: Bed Active 2018-03 [place] Mobility/Tr deficit: Mobility/T 2-24 [facility] ansfer toilet/comm ransfer 11:22: [id number] ode 00 Bed knowledge/s PT/OT: Bed Active 2018-03 [place] Mobility/Tr kill Mobility/T 2-24 [facility] ansfer deficit: pt ransfer 11:22: [id number] 00 Bed bed PT/OT: Bed Active 2018-03 [place] Mobility/Tr mobility Mobility/T 2-24 [facility] ansfer deficit ransfer 11:22: [id number] 00 Balance/End balance/sports medicine coordinator PT/OT: Active 2018-03 [place] urance rdination Balance/En 2-24 [facility] deficit durance 11:22: [id number] 00 Balance/End endurance PT/OT: Active 2018-03 [place] urance deficit Balance/En 2-24 [facility] durance 11:22: [id number] 00 Balance/End knowledge/s PT/OT: Active 2018-03 [place] urance kill Balance/En 2-24 [facility] deficit: pt durance 11:22: [id number] 00 Gait/Locomo gait PT/OT: Active 2018-03 [place] tion assistive Gait/Locom 2-24 [facility] problems device otion 11:22: [id number] present 00 Gait/Locomo gait PT/OT: Active 2018-03 [place] tion deficit Gait/Locom 2-24 [facility] problems otion 11:22: [id number] 00 Gait/Locomo knowledge/s PT/OT: Active 2018-03 [place] hough Gait/Locom 2-24 [facility] problems deficit: pt otion 11:22: [id number] 00 Cardio pacemaker/I Cardiovasc Active Jonna CATY frankie 03-24 Carrier RN 11:30: 00 Allergies, Adverse Reactions, [...] Observation Time Observation Value Comments SYSTOLIC mm[Hg] 2019-03-24 18:09:41 118 mm[Hg] mm[Hg] Method: Sit SYSTOLIC mm[Hg] 2019-03-14 18:09:31 122 mm[Hg] mm[Hg] Method: Stand DIASTOLIC mm[Hg] 2019-03-24 18:09:41 60 mm[Hg] mm[Hg] Method: Sit DIASTOLIC mm[Hg] 2019-03-14 18:09:31 66 mm[Hg] mm[Hg] Method: Stand PULSE 2019-03-24 18:09:41 78 /min /min RESP RATE 2019-03-24 18:09:41 16 /min /min TEMP 2019-03-24 18:09:41 97.8 [degF] Procedures This patient has no known procedures. Results This patient has no known results.
--- OUTSIDE RECORDS SUMMARY | 2019-04-28 21:00 | XMS REPORT ---
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 Pain frequent Pain Mgmt Active 2018-03 [facility] pain 05-15 [place] 09:55: [id number] 00 Respiratory dyspnea Respirator Active 2018-03 [facility] present y 05-15 [place] 09:55: [id number] 00 Respiratory CPAP Respirator Active 2018-03 [facility] treatments y 05-15 [place] in home 09:55: [id number] 00 Endo/Richard diabetic Endo/Richard Active 2018-03 [facility] foot care 05-15 [place] 09:55: [id number] 00 Endo/Richard anti-coagul Endo/Richard Active 2018-03 [facility] ation 05-15 [place] therapy 09:55: [id number] 00 Sensory impaired Sensory Active 2018-03 [facility] hearing 05-15 [place] 09:55: [id number] 00 Integument skin Integument Active 2018-03 Aleta integrity 05-15 [place] risk 09:55: [id number] 00 Nutrition nutritional Nutrition Active 2018-03 [facility] restriction 05-15 [place] s 09:55: [id number] 00 Elimination catheter Eliminatio Active 2018-03 [facility] present n 05-15 [place] 09:55: [id number] 00 Neuro confusion Neuro/Emot Active 2018-03 [facility] present ion 05-15 [place] 09:55: [id number] 00 Neuro impaired Neuro/Emot Active 2018-03 [facility] decision-ma ion 05-15 [place] trevor 09:55: [id number] 00 Activity ADL Activity Active 2018-03 [facility] assistance 05-15 [place] required 09:55: [id number] 00 Activity self-care Activity Active 2018-03 Aleta deficit 05-15 [place] 09:55: [id number] 00 Safety structural Safety Active 2018-03 [facility]ta barriers 05-15 [place] present 09:55: [id number] 00 Safety fall risk Safety Active 2018-03 Aleta factor 05-15 [place] present 09:55: [id number] 00 Safety risk for Safety Active 2018-03 [facility] hospitaliza 05-15 [place] tion 09:55: [id number] 00 Medication oral med Meds Active 2018-03 [facility] assistance 05-15 [place] required 09:55: [id number] 00 Musculoskel transfer Musculoske Active 2018-03 [facility] etal assistance letal 05-15 [place] required 09:55: [id number] 00 Musculoskel requires Musculoske Active 2018-03 [facility] etal human letal 05-15 [place] assist to 09:55: [id number] leave home 00 Bed transfer PT/OT: Bed Active 2018-03 [place] Mobility/Tr deficit: Mobility/T 2-24 [facility] ansfer sit/stand ransfer 11:22: [id number] 00 Bed transfer PT/OT: Bed Active 2018-03 [place] Mobility/Tr deficit: Mobility/T 2-24 [facility] ansfer standing ransfer 11:22: [id number] pivot 00 Bed transfer PT/OT: Bed Active 2018-03 [place] Mobility/Tr deficit: Mobility/T 2-24 [facility] ansfer toilet/comm ransfer 11:22: [id number] ode 00 Bed knowledge/s PT/OT: Bed Active 2018-03 [place] Mobility/Tr kill Mobility/T 2-24 [facility] ansfer deficit: pt ransfer 11:22: [id number] 00 Bed bed PT/OT: Bed Active 2018-03 [place] Mobility/Tr mobility Mobility/T 2-24 [facility] ansfer deficit ransfer 11:22: [id number] 00 Balance/End balance/research coordinator PT/OT: Active 2018-03 [place] urance rdination Balance/En 2-24 [facility] deficit durance 11:22: [id number] 00 Balance/End endurance PT/OT: Active 2018-03 [place] urance deficit Balance/En 2-24 [facility] durance 11:22: [id number] 00 Balance/End knowledge/s PT/OT: Active 2018-03 [place] urance kill Balance/En 2-24 [facility] deficit: pt durance 11:22: [id number] 00 Gait/Locomo gait PT/OT: Active 2018-03 [place] tion assistive Gait/Locom 2-24 [facility] problems device otion 11:22: [id number] present 00 Gait/Locomo gait PT/OT: Active 2018-03 [place] tion deficit Gait/Locom 2-24 [facility] problems otion 11:22: [id number] 00 Gait/Locomo knowledge/s PT/OT: Active 2018-03 [place] hough Gait/Locom 2-24 [facility] problems deficit: pt otion 11:22: [id number] 00 Cardio pacemaker/I Cardiovasc Active Jonna CATY [...] doxycycline hyclate 100 mg capsule [code = 8436075] Results This patient has no known results.
--- OUTSIDE RECORDS SUMMARY | 2019-04-28 21:00 | XMS REPORT ---
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 Pain frequent Pain Mgmt Active 2018-03 [facility] pain 05-15 [place] 09:55: [id number] 00 Respiratory dyspnea Respirator Active 2018-03 [facility] present y 05-15 [place] 09:55: [id number] 00 Respiratory CPAP Respirator Active 2018-03 [facility] treatments y 05-15 [place] in home 09:55: [id number] 00 Endo/Richard diabetic Endo/Richard Active 2018-03 [facility] foot care 05-15 [place] 09:55: [id number] 00 Endo/Richard anti-coagul Endo/Richard Active 2018-03 Aleta ation 05-15 [place] therapy 09:55: [id number] 00 Sensory impaired Sensory Active 2018-03 Aleta hearing 05-15 [place] 09:55: [id number] 00 Integument skin Integument Active 2018-03 Aleta integrity 05-15 [place] risk 09:55: [id number] 00 Nutrition nutritional Nutrition Active 2018-03 Aleta restriction 05-15 [place] s 09:55: [id number] 00 Elimination catheter Eliminatio Active 2018-03 [facility] present n 05-15 [place] 09:55: [id number] 00 Neuro confusion Neuro/Emot Active 2018-03 Aleta present ion 05-15 [place] 09:55: [id number] 00 Neuro impaired Neuro/Emot Active 2018-03 Aleta decision-ma ion 05-15 [place] trevor 09:55: [id number] 00 Activity ADL Activity Active 2018-03 Aleta assistance 05-15 [place] required 09:55: [id number] 00 Activity self-care Activity Active 2018-03 Aleta deficit 05-15 [place] 09:55: [id number] 00 Safety structural Safety Active 2018-03 Aleta barriers 05-15 [place] present 09:55: [id number] 00 Safety fall risk Safety Active 2018-03 Aleta factor 05-15 [place] present 09:55: [id number] 00 Safety risk for Safety Active 2018-03 Aleta hospitaliza 05-15 [place] tion 09:55: [id number] 00 Medication oral med Meds Active 2018-03 Aleta assistance 05-15 [place] required 09:55: [id number] 00 Musculoskel transfer Musculoske Active 2018-03 Aleta etal assistance letal 05-15 [place] required 09:55: [id number] 00 Musculoskel requires Musculoske Active 2018-03 Aleta etal human letal 05-15 [place] assist to 09:55: [id number] leave home 00 Bed transfer PT/OT: Bed Active 2018-03 [place] Mobility/Tr deficit: Mobility/T 2-24 [place] ansfer sit/stand ransfer 11:22: [id number] 00 Bed transfer PT/OT: Bed Active 2018-03 [place] Mobility/Tr deficit: Mobility/T 2-24 [place] ansfer standing ransfer 11:22: [id number] pivot 00 Bed transfer PT/OT: Bed Active 2018-03 [place] Mobility/Tr deficit: Mobility/T 2-24 [place] ansfer toilet/comm ransfer 11:22: [id number] ode 00 Bed knowledge/s PT/OT: Bed Active 2018-03 [place] Mobility/Tr kill Mobility/T 2-24 [place] ansfer deficit: pt ransfer 11:22: [id number] 00 Bed bed PT/OT: Bed Active 2018-03 [place] Mobility/Tr mobility Mobility/T 2-24 [place] ansfer deficit ransfer 11:22: [id number] 00 Balance/End balance/volunteer services coordinator PT/OT: Active 2018-03 [place] urance rdination Balance/En 2-24 [place] deficit durance 11:22: [id number] 00 Balance/End endurance PT/OT: Active 2018-03 [place] urance deficit Balance/En 2-24 [place] durance 11:22: [id number] 00 Balance/End knowledge/s PT/OT: Active 2018-03 [place] urance kill Balance/En 2-24 [place] deficit: pt durance 11:22: [id number] 00 Gait/Locomo gait PT/OT: Active 2018-03 [place] tion assistive Gait/Locom 2-24 [place] problems device otion 11:22: [id number] present 00 Gait/Locomo gait PT/OT: Active 2018-03 [place] tion deficit Gait/Locom 2-24 [place] problems otion 11:22: [id number] 00 Gait/Locomo knowledge/s PT/OT: Active 2018-03 [place] hough Gait/Locom 2-24 [place] problems deficit: pt otion 11:22: [id number] 00 Allergies, Adverse Reactions, Alerts Allergy Name Allergy Status Severity Reaction(s) Onset Inactive Treating Comments Type Date Date Clinician scallops Base Active Unknown Reaction 2018-03 Nikki White Ingredient Unknown 2-24 pravastatin Base Active Unknown Reaction 2018-03 Nikki [...]
--- OUTSIDE RECORDS SUMMARY | 2019-04-28 21:00 | XMS REPORT ---
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 Pain frequent Pain Mgmt Active 2018-03 Aleta pain 05-15 [place] 09:55: [id number] 00 Respiratory dyspnea Respirator Active 2018-03 Aleta present y 05-15 [place] 09:55: [id number] 00 Respiratory CPAP Respirator Active 2018-03 [facility] treatments y 05-15 [place] in home 09:55: [id number] 00 Endo/Richard diabetic Endo/Richard Active 2018-03 [facility] foot care 05-15 [place] 09:55: [id number] 00 Endo/Richard anti-coagul Endo/Richard Active 2018-03 Aleta ation 05-15 [place] therapy 09:55: [id number] 00 Sensory impaired Sensory Active 2018-03 Aleta hearing 05-15 [place] 09:55: [id number] 00 Integument skin Integument Active 2018-03 Aleta integrity 05-15 [place] risk 09:55: [id number] 00 Nutrition nutritional Nutrition Active 2018-03 Aleta restriction 05-15 [place] s 09:55: [id number] 00 Elimination catheter Eliminatio Active 2018-03 [facility] present n 05-15 [place] 09:55: [id number] 00 Neuro confusion Neuro/Emot Active 2018-03 Aleta present ion 05-15 [place] 09:55: [id number] 00 Neuro impaired Neuro/Emot Active 2018-03 Aleta decision-ma ion 05-15 [place] trevor 09:55: [id number] 00 Activity ADL Activity Active 2018-03 Aleta assistance 05-15 [place] required 09:55: [id number] 00 Activity self-care Activity Active 2018-03 Aleta deficit 05-15 [place] 09:55: [id number] 00 Safety structural Safety Active 2018-03 Aleta barriers 05-15 [place] present 09:55: [id number] 00 Safety fall risk Safety Active 2018-03 Aleta factor 05-15 [place] present 09:55: [id number] 00 Safety risk for Safety Active 2018-03 Aleta hospitaliza 05-15 [place] tion 09:55: [id number] 00 Medication oral med Meds Active 2018-03 Aleta assistance 05-15 [place] required 09:55: [id number] 00 Musculoskel transfer Musculoske Active 2018-03 Ale[facility] etal assistance letal 05-15 [place] required 09:55: [id number] 00 Musculoskel requires Musculoske Active 2018-03 Aleta etal human letal 05-15 [place] assist to 09:55: [id number] leave home 00 Bed transfer PT/OT: Bed Active 2018-03 [place] Mobility/Tr deficit: Mobility/T 2-24 [place] ansfer sit/stand ransfer 11:22: [id number] 00 Bed transfer PT/OT: Bed Active 2018-03 [place] Mobility/Tr deficit: Mobility/T 2-24 [place] ansfer standing ransfer 11:22: [id number] pivot 00 Bed transfer PT/OT: Bed Active 2018-03 [place] Mobility/Tr deficit: Mobility/T 2-24 [place] ansfer toilet/comm ransfer 11:22: [id number] ode 00 Bed knowledge/s PT/OT: Bed Active 2018-03 [place] Mobility/Tr kill Mobility/T 2-24 [place] ansfer deficit: pt ransfer 11:22: [id number] 00 Bed bed PT/OT: Bed Active 2018-03 [place] Mobility/Tr mobility Mobility/T 2-24 [place] ansfer deficit ransfer 11:22: [id number] 00 Balance/End balance/mailroom coordinator PT/OT: Active 2018-03 [place] urance rdination Balance/En 2-24 [place] deficit durance 11:22: [id number] 00 Balance/End endurance PT/OT: Active 2018-03 [place] urance deficit Balance/En 2-24 [place] durance 11:22: [id number] 00 Balance/End knowledge/s PT/OT: Active 2018-03 [place] urance kill Balance/En 2-24 [place] deficit: pt durance 11:22: [id number] 00 Gait/Locomo gait PT/OT: Active 2018-03 [place] tion assistive Gait/Locom 2-24 [place] problems device otion 11:22: [id number] present 00 Gait/Locomo gait PT/OT: Active 2018-03 [place] tion deficit Gait/Locom 2-24 [place] problems otion 11:22: [id number] 00 Gait/Locomo knowledge/s PT/OT: Active 2018-03 [place] hough Gait/Locom 2-24 [place] problems deficit: pt otion 11:22: [id number] 00 Cardio pacemaker/I Cardiovasc Active Jonna CATY frankie 1-03 Carrier RN 11:30: 00 Allergies, Adverse Reactions, Alerts Allergy Name Allergy Status Severity Reaction(s) Onset Inactive Treating Comments Type Date Date Clinician scallops Base Active Unknown Reaction 2018-03 Nikki White Ingredient Unknown - pravastatin Base Active Unknown Reaction 2018-03 Nikki White Ingredient Unknown -24 Medications Ordered Filled Start Stop Current Ordering [...] Observation Time Observation Value Comments SYSTOLIC mm[Hg] 2019-03-28 18:09:45 140 mm[Hg] mm[Hg] Method: Sit SYSTOLIC mm[Hg] 2019-03-14 18:09:31 122 mm[Hg] mm[Hg] Method: Stand DIASTOLIC mm[Hg] 2019-03-28 18:09:45 80 mm[Hg] mm[Hg] Method: Sit DIASTOLIC mm[Hg] 2019-03-14 18:09:31 66 mm[Hg] mm[Hg] Method: Stand PULSE 2019-03-28 18:09:45 88 /min /min RESP RATE 2019-03-24 18:09:41 16 /min /min TEMP 2019-03-28 18:09:45 98.2 [degF] Procedures This patient has no known procedures. Results This patient has no known results.
--- OUTSIDE RECORDS SUMMARY | 2019-04-28 21:00 | XMS REPORT ---
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 Pain frequent Pain Mgmt Active 2018-03 Aleta pain 05-15 [place] 09:55: [id number] 00 Respiratory dyspnea Respirator Active 2018-03 Aleta present y 05-15 [place] 09:55: [id number] 00 Respiratory CPAP Respirator Active 2018-03 Aleta treatments y 05-15 [place] in home 09:55: [id number] 00 Endo/Richard diabetic Endo/Richard Active 2018-03 Aleta foot care 05-15 [place] 09:55: [id number] 00 Endo/Richard anti-coagul Endo/Richard Active 2018-03 Aleta ation 05-15 [place] therapy 09:55: [id number] 00 Sensory impaired Sensory Active 2018-03 Aleta hearing 05-15 [place] 09:55: [id number] 00 Integument skin Integument Active 2018-03 Aleta integrity 05-15 [place] risk 09:55: [id number] 00 Nutrition nutritional Nutrition Active 2018-03 Aleta restriction 05-15 [place] s 09:55: [id number] 00 Elimination catheter Eliminatio Active 2018-03 [facility] present n 05-15 [place] 09:55: [id number] 00 Neuro confusion Neuro/Emot Active 2018-03 Aleta present ion 05-15 [place] 09:55: [id number] 00 Neuro impaired Neuro/Emot Active 2018-03 Aleta decision-ma ion 05-15 [place] trevor 09:55: [id number] 00 Activity ADL Activity Active 2018-03 Aleta assistance 05-15 [place] required 09:55: [id number] 00 Activity self-care Activity Active 2018-03 Aleta deficit 05-15 [place] 09:55: [id number] 00 Safety structural Safety Active 2018-03 Aleta barriers 05-15 [place] present 09:55: [id number] 00 Safety fall risk Safety Active 2018-03 Aleta factor 05-15 [place] present 09:55: [id number] 00 Safety risk for Safety Active 2018-03 Aleta hospitaliza 05-15 [place] tion 09:55: [id number] 00 Medication oral med Meds Active 2018-03 Aleta assistance 05-15 [place] required 09:55: [id number] 00 Musculoskel transfer Musculoske Active 2018-03 Aleta etal assistance letal 05-15 [place] required 09:55: [id number] 00 Musculoskel requires Musculoske Active 2018-03 Aleta etal human letal 05-15 [place] assist to 09:55: [id number] leave home 00 Bed transfer PT/OT: Bed Active 2018-03 [place] Mobility/Tr deficit: Mobility/T 2-24 [place] ansfer sit/stand ransfer 11:22: [id number] 00 Bed transfer PT/OT: Bed Active 2018-03 [place] Mobility/Tr deficit: Mobility/T 2-24 [place] ansfer standing ransfer 11:22: [id number] pivot 00 Bed transfer PT/OT: Bed Active 2018-03 [place] Mobility/Tr deficit: Mobility/T 2-24 [place] ansfer toilet/comm ransfer 11:22: [id number] ode 00 Bed knowledge/s PT/OT: Bed Active 2018-03 [place] Mobility/Tr kill Mobility/T 2-24 [place] ansfer deficit: pt ransfer 11:22: [id number] 00 Bed bed PT/OT: Bed Active 2018-03 [place] Mobility/Tr mobility Mobility/T 2-24 [place] ansfer deficit ransfer 11:22: [id number] 00 Balance/End balance/revenue coordinator PT/OT: Active 2018-03 [place] urance rdination Balance/En 2-24 [place] deficit durance 11:22: [id number] 00 Balance/End endurance PT/OT: Active 2018-03 [place] urance deficit Balance/En 2-24 [place] durance 11:22: [id number] 00 Balance/End knowledge/s PT/OT: Active 2018-03 [place] urance kill Balance/En 2-24 [place] deficit: pt durance 11:22: [id number] 00 Gait/Locomo gait PT/OT: Active 2018-03 [place] tion assistive Gait/Locom 2-24 [place] problems device otion 11:22: [id number] present 00 Gait/Locomo gait PT/OT: Active 2018-03 [place] tion deficit Gait/Locom 2-24 [place] problems otion 11:22: [id number] 00 Gait/Locomo knowledge/s PT/OT: Active 2018-03 [place] hough Gait/Locom 2-24 [place] problems deficit: pt otion 11:22: [id number] 00 Cardio pacemaker/I Cardiovasc Active Jonna CATY [...]
--- OUTSIDE RECORDS SUMMARY | 2019-04-28 21:00 | XMS REPORT ---
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 [...] Pain Mgmt Active 2018-03 Aleta pain 05-15 [place] 09:55: [id number] 00 Respiratory dyspnea Respirator Active 2018-03 Aleta present y 05-15 [place] 09:55: [id number] 00 Respiratory CPAP Respirator Active 2018-03 Aleta treatments y 05-15 [place] in home 09:55: [id number] 00 Endo/Richard diabetic Endo/Richard Active 2018-03 Aleta foot care 05-15 [place] 09:55: [id number] 00 Endo/Richard anti-coagul Endo/Richard Active 2018-03 Aleta ation 05-15 [place] therapy 09:55: [id number] 00 Sensory impaired Sensory Active 2018-03 Aleta hearing 05-15 [place] 09:55: [id number] 00 Integument skin Integument Active 2018-03 Aleta integrity 05-15 [place] risk 09:55: [id number] 00 Nutrition nutritional Nutrition Resolve 2018-032019-03-31 Aleta restriction d 05-15 10:40:00 [place] s 09:55: [id number] 00 Elimination catheter Eliminatio Active 2018-03 [facility] present n 05-15 [place] 09:55: [id number] 00 Neuro confusion Neuro/Emot Active 2018-03 Aleta present ion 05-15 [place] 09:55: [id number] 00 Neuro impaired Neuro/Emot Active 2018-03 Aleta decision-ma ion 05-15 [place] trevor 09:55: [id number] 00 Activity ADL Activity Active 2018-03 Aleta assistance 05-15 [place] required 09:55: [id number] 00 Activity self-care Activity Active 2018-03 Aleta deficit 05-15 [place] 09:55: [id number] 00 Safety structural Safety Active 2018-03 Aleta barriers 05-15 [place] present 09:55: [id number] 00 Safety fall risk Safety Active 2018-03 Aleta factor 05-15 [place] present 09:55: [id number] 00 Safety risk for Safety Active 2018-03 Aleta hospitaliza 05-15 [place] tion 09:55: [id number] 00 Medication oral med Meds Active 2018-03 Aleta assistance 05-15 [place] required 09:55: [id number] 00 Musculoskel transfer Musculoske Active 2018-03 [facility] etal assistance letal 05-15 [place] required 09:55: [id number] 00 Musculoskel requires Musculoske Active 2018-03 Aleta etal human letal 05-15 [place] assist to 09:55: [id number] leave home 00 Bed transfer PT/OT: Bed Active 2018-03 [place] Mobility/Tr deficit: Mobility/T 2-24 [place] ansfer sit/stand ransfer 11:22: [id number] 00 Bed transfer PT/OT: Bed Active 2018-03 [place] Mobility/Tr deficit: Mobility/T 2-24 [place] ansfer standing ransfer 11:22: [id number] pivot 00 Bed transfer PT/OT: Bed Active 2018-03 [place] Mobility/Tr deficit: Mobility/T 2-24 [place] ansfer toilet/comm ransfer 11:22: [id number] ode 00 Bed knowledge/s PT/OT: Bed Active 2018-03 [place] Mobility/Tr kill Mobility/T 2-24 [place] ansfer deficit: pt ransfer 11:22: [id number] 00 Bed bed PT/OT: Bed Active 2018-03 [place] Mobility/Tr mobility Mobility/T 2-24 [place] ansfer deficit ransfer 11:22: [id number] 00 Balance/End balance/leave coordinator PT/OT: Active 2018-03 [place] almanzarance rdination Balance/En 2-24 [place] deficit durance 11:22: [id number] 00 Balance/End endurance PT/OT: Active 2018-03 [place] urance deficit Balance/En 2-24 [place] durance 11:22: [id number] 00 Balance/End knowledge/s PT/OT: Active 2018-03 [place] urance kill Balance/En 2-24 [place] deficit: pt durance 11:22: [id number] 00 Gait/Locomo gait PT/OT: Active 2018-03 [place] tion assistive Gait/Locom 2-24 [place] problems device otion 11:22: [id number] present 00 Gait/Locomo gait PT/OT: Active 2018-03 [place] tion deficit Gait/Locom 2-24 [place] problems otion 11:22: [id number] 00 Gait/Locomo knowledge/s PT/OT: Active 2018-03 [place] zacarias kill Gait/Locom 2-24 [place] problems deficit: pt otion 11:22: [id number] 00 Cardio pacemaker/I Cardiovasc Active Jonna BYRNE [...] Observation Time Observation Value Comments SYSTOLIC mm[Hg] 2019-04-05 18:09:53 128 mm[Hg] mm[Hg] Method: Sit SYSTOLIC mm[Hg] 2019-03-14 18:09:31 122 mm[Hg] mm[Hg] Method: Stand DIASTOLIC mm[Hg] 2019-04-05 18:09:53 70 mm[Hg] mm[Hg] Method: Sit DIASTOLIC mm[Hg] 2019-03-14 18:09:31 66 mm[Hg] mm[Hg] Method: Stand PULSE 2019-04-05 18:09:53 90 /min /min RESP RATE 2019-04-05 18:09:53 16 /min /min TEMP 2019-04-05 18:09:53 97.6 [degF] Procedures This patient has no known procedures. Results This patient has no known results.
--- OUTSIDE RECORDS SUMMARY | 2019-04-28 21:00 | XMS REPORT ---
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 [...] Pain Mgmt Active 2018-03 Aleta pain 05-15 [place] 09:55: [id number] 00 Respiratory dyspnea Respirator Active 2018-03 Aleta present y 05-15 [place] 09:55: [id number] 00 Respiratory CPAP Respirator Active 2018-03 Aleta treatments y 05-15 [place] in home 09:55: [id number] 00 Endo/Richard diabetic Endo/Richard Resolve 2018-032019-04-05 Aleta foot care d 05-15 10:20:00 [place] 09:55: [id number] 00 Endo/Richard anti-coagul Endo/Richard Resolve 2018-032019-04-05 Aleta ation d 05-15 10:20:00 [place] therapy 09:55: [id number] 00 Sensory impaired Sensory Active 2018-03 Aleta hearing 05-15 [place] 09:55: [id number] 00 Integument skin Integument Active 2018-03 Aleta integrity 05-15 [place] risk 09:55: [id number] 00 Nutrition nutritional Nutrition Resolve 2018-032019-03-31 Aleta restriction d 05-15 10:40:00 [place] s 09:55: [id number] 00 Elimination catheter Eliminatio Active 2018-03 Aleta present n 05-15 [place] 09:55: [id number] 00 Neuro confusion Neuro/Emot Active 2018-03 Aleta present ion 05-15 [place] 09:55: [id number] 00 Neuro impaired Neuro/Emot Active 2018-03 Aleta decision-ma ion 05-15 [place] trevor 09:55: [id number] 00 Activity ADL Activity Active 2018-03 Aleta assistance 05-15 [place] required 09:55: [id number] 00 Activity self-care Activity Resolve 2018-032019-04-07 Aleta deficit d 05-15 10:30:00 [place] 09:55: [id number] 00 Safety structural Safety Active 2018-03 Aleta barriers 05-15 [place] present 09:55: [id number] 00 Safety fall risk Safety Active 2018-03 Aleta factor 05-15 [place] present 09:55: [id number] 00 Safety risk for Safety Active 2018-03 Aleta hospitaliza 05-15 [place] tion 09:55: [id number] 00 Medication oral med Meds Resolve 2018-032019-04-05 Aleta assistance d 05-15 10:20:00 [place] required 09:55: [id number] 00 Musculoskel transfer Musculoske Active 2018-03 Aleta etal assistance letal 05-15 [place] required 09:55: [id number] 00 Musculoskel requires Musculoske Active 2018-03 Aleta etal human letal 05-15 [place] assist to 09:55: [id number] leave home 00 Bed transfer PT/OT: Bed Active 2018-03 [place] Mobility/Tr deficit: Mobility/T 2-24 [place] ansfer sit/stand ransfer 11:22: [id number] 00 Bed transfer PT/OT: Bed Active 2018-03 [place] Mobility/Tr deficit: Mobility/T 2-24 [place] ansfer standing ransfer 11:22: [id number] pivot 00 Bed transfer PT/OT: Bed Active 2018-03 [place] Mobility/Tr deficit: Mobility/T 2-24 [place] ansfer toilet/comm ransfer 11:22: [id number] ode 00 Bed knowledge/s PT/OT: Bed Active 2018-03 [place] Mobility/Tr kill Mobility/T 2-24 [place] ansfer deficit: pt ransfer 11:22: [id number] 00 Bed bed PT/OT: Bed Active 2018-03 [place] Mobility/Tr mobility Mobility/T 2-24 [place] ansfer deficit ransfer 11:22: [id number] 00 Balance/End balance/service learning coordinator PT/OT: Active 2018-03 [place] urance rdination Balance/En 2-24 [place] deficit durance 11:22: [id number] 00 Balance/End endurance PT/OT: Active 2018-03 [place] urance deficit Balance/En 2-24 [place] durance 11:22: [id number] 00 Balance/End knowledge/s PT/OT: Active 2018-03 [place] urance kill Balance/En 2-24 [place] deficit: pt durance 11:22: [id number] 00 Gait/Locomo gait PT/OT: Active 2018-03 [place] tion assistive Gait/Locom 2-24 [place] problems device otion 11:22: [id number] present 00 Gait/Locomo gait PT/OT: Active 2018-03 [place] tion deficit Gait/Locom 2-24 [place] problems otion 11:22: [id number] 00 Gait/Locomo knowledge/s PT/OT: Active 2018-03 [place] tion kill Gait/Locom 2-24 [place] problems deficit: pt otion 11:22: [id number] 00 Cardio pacemaker/I Cardiovasc Active Jonna BYRNE [...]
[2019-04-28] MEDS: NS 0.9% 1000 ML** 2,400 ML IV ONE ×2 (21:17→21:18)
[2019-04-28 21:19] LABS: Urine Appearance Turbid; Urine Bilirubin Negative (Negative); Urine Blood 2+ (Negative); Urine Color Amber; Urine Glucose Negative (Negative); Urine Ketones Negative (Negative); Urine Nitrite Negative (Negative); Urine Protein 3+(>=500 mg/dL) (Negative); Urine Specific Gravity 1.014 (1.010-1.030); Urine Urobilinogen Negative (Negative)
[2019-04-28 21:24] LABS: ABS Basophils 0.2 10^3/ul (0-0.2); ABS Lymphocytes 0.4 10^3/ul (1.0-4.8); ABS Monocytes 0.5 10^3/ul (0-0.8); ABS Neutrophils 12.6 10^3/ul (1.5-7.7); Hematocrit 40 % (42-52); Hemoglobin 13.9 g/dL (14.0-18.0); Mean Corpuscular HGB Conc 35 g/dL (31-36); Mean Corpuscular Hemoglobin 32 pg (27-31); Mean Corpuscular Volume 92 fL (80-94); Mean Platelet Volume 7.5 fL (7.4-10.4); Platelet Count 256 10^3/uL (150-450); Red Blood Count 4.39 10^6 /uL (4.18-5.48); Red Cell Distribution Width 14 % (10-15); White Blood Count 13.7 10^3/uL (3.5-10.8)
[2019-04-28 21:25] LABS: Urine Bacteria Absent (Absent); Urine Red Blood Cell 3+(>10/hpf) (Absent); Urine White Blood Cell 2+(11-20/hpf) (Absent)
[2019-04-28 21:32] LABS: Activated Partial Thrombo Time 29.2 seconds (26.0-38.0); INR 1.21 (0.82-1.09)
[2019-04-28 21:35] LABS: ALT 50 U/L (7-52); AST 23 U/L (13-39); Albumin/Globulin Ratio 1.2 (1-3); Alkaline Phosphatase 74 U/L (34-104); Anion Gap 11 mmol/L (2-11); BUN/Creatinine Ratio 19.5 (8-20); Blood Urea Nitrogen 25 mg/dL (6-24); CO2 Carbon Dioxide 21 mmol/L (22-32); Calcium 9.1 mg/dL (8.6-10.3); Chloride 106 mmol/L (101-111); EGFR African American 64.3 (>60); EGFR Non-African American 53.2 (>60); Globulin 3.4 g/dL (2-4); Glucose 281 mg/dL (70-100); Potassium 4.3 mmol/L (3.5-5.0); Sodium 138 mmol/L (135-145); Total Protein 7.4 g/dL (6.4-8.9)
[2019-04-28] MEDS ORDERED: cefTRIAXone(*) 1 GM in NS 0.9% 50 ML* 50 ML IVPB ONE (21:37)
[2019-04-28 21:39] LABS: Troponin I 0.06 ng/mL (<0.03)
[2019-04-28 22:41] LABS: Influenza A Molecular Negative (Negative); Influenza B Molecular Negative (Negative)
[2019-04-28] MEDS ORDERED: Ondansetron INJ* 2 MG/ML VIAL IV PRN (23:43)
[2019-04-28] MEDS ORDERED: Acetaminophen TAB* 325 MG PO PRN (23:43)
[2019-04-28] MEDS ORDERED: Enoxaparin(*) 40 MG/0.4 ML SYR SUBCUT SCH (23:45)
[2019-04-29] MEDS ORDERED: Dextrose 50% Syringe 50 ML* 25 GM/50 ML SYRINGE IV PUSH PRN (00:03)
[2019-04-29] MEDS: NS 0.9% 1000 ML** 1,000 ML IV SCH ×3 (01:11→23:36)
[2019-04-29 01:25] LABS: Troponin I 0.17 ng/mL (<0.03)
[2019-04-29] MEDS ORDERED: Metoprolol Tartrate TAB* 25 MG PO ONE (01:40)
[2019-04-29 02:17] LABS: Digoxin 0.4 ng/ml (0.8-2.0)
[2019-04-29] MEDS ORDERED: Digoxin TAB* 0.125 MG PO ONE ×2 (03:00→09:00)
[2019-04-29 03:27] LABS: Troponin I 0.14 ng/mL (<0.03)
--- NOTE | 2019-04-29 03:34 | HP ---
ADMISSION HISTORY AND PHYSICAL: DATE OF ADMISSION: 04/29/19 PRIMARY CARE PHYSICIAN: Dr. Larios. GLOBAL CLINICAL LEADER: Dr. Lopez. PROVIDER: Alejandra Schroeder NP ATTENDING PHYSICIAN: Dr. Osman Duggan.* (DICTATED BY ALEJANDRA SCHROEDER NP) CHIEF COMPLAINT: Weakness and hematuria. HISTORY OF PRESENT ILLNESS: This is an 89-year-old male with the past medical history significant for diabetes; coronary artery disease, with ICD pacer placement; DVTs; BPH, who came to the emergency room on 04/28/19 after reports of weakness and hematuria through his Gastelum catheter per his . He has had chronic catheter since 01/24/19 due to urinary retention. He has failed multiple voiding trials and sees Dr. Cardenas on an outpatient basis. His Gastelum catheter prior to this hospitalization was changed last Wednesday due to leaking. On 04/28/19, noticed that his tremoring, which he normally has a very mild amount of, was worse. He was unable to sit up straight at the dinner table, notes that he was slumping over, unable to keep his head up. At that point, she wanted to attempt to get him to the couch so he could be more comfortable but he ended up sliding out of the chair without hitting his head. She also reported that he fell this a.m. in the bathroom. The state was more like sliding and again did not hit his head. Before yesterday, she stated that there nothing seemed terribly off about him. She normally is the one to care for his catheter and emptying. She states that she regularly cleans the tubing and the bag as well as the urine collection device with vinegar and rinses them out frequently, though does not always wipe the end of the catheter with alcohol. When attempting to question the patient directly about his health, he stated he felt fine and directed for the questioning to his . In the emergency room, he received a total of 2400 mL of normal saline and 1 g of ceftriaxone. Labs were drawn. EKG and chest x-ray were performed as well as a brain CT scan and hospitalists were asked to evaluate the patient for admission. 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 PAST SURGICAL HISTORY: Bilateral cataract repair, pacer placement, coronary angiogram, and tonsillectomy. MEDICATIONS: 1. Tamsulosin 0.4 mg p.o. at bedtime. 2. Multivitamin 1 tab p.o. daily. 3. Finasteride 5 mg p.o. daily. 4. Vitamin B12 500 mcg p.o. daily. 5. Glimepiride 0.5 mg p.o. daily. 6. Digoxin 0.125 p.o. every Wednesday, Wednesday, and Wednesday. 7. Aspirin 81 mg p.o. daily. ALLERGIES: To PRAVASTATIN and SCALLOPS. FAMILY HISTORY: Significant for Parkinson's, CVA, and PA. SOCIAL HISTORY: Former smoker, quit in 1984, and smoked for 30 years prior to that. He drinks about 1-1/2 glasses of wine a day. No recreational or substance use. 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 He is and has 3 children. REVIEW OF SYSTEMS: A 12-point system review was positive for findings as stated in the HPI. He is also incontinent of bowel. He has had a 25-pound weight loss in the past 6 months to a year. He has had poor appetite. Negative for fevers, chills, chest pain, shortness of breath, cough, nausea, vomiting. PHYSICAL EXAMINATION GENERAL: This is a well-developed, older gentleman, seen resting in the bed, no acute distress. VITAL SIGNS: 98.4 Fahrenheit, 69 pulse, 34 respirations, 93% oxygen on 2 L, and 164/80 blood pressure. HEENT: Conjunctivae pink and moist. PERRLA. EOMs intact. Oropharynx, sticky with viscous mucus, clear. Membranes slightly dry. NECK: Supple. RESPIRATORY: Lung sounds clear throughout bilaterally on 2 L of oxygen via nasal cannula. No accessory muscle use noted. CARDIAC: Heart rate irregular with no murmurs, gallops, or rubs appreciated. Pacer present to left chest wall. No JVD or peripheral edema noted. ABDOMEN: Soft, slightly distended, tender in bilateral lower quadrants with positive bowel sounds x4. URINARY: Gastelum catheter is draining slightly cloudy medium yellow urine without any clots in the bag. MUSCULOSKELETAL: No clubbing, cyanosis of the digits. Noted atrophy of bilateral calf muscles. NEURO: Extremely hard of hearing in bilateral ears. No other focal deficits appreciated. SENSATION: Intact to light touch though diminished to bilateral feet. PSYCH: He is alert and oriented to himself but not the situation. SKIN: To the left lateral fibular notch, there is a healing pressure ulcer that has a small scab surrounding purplish slightly boggy skin without any drainage. The tip of his left great toe has a wound that is unopened without any drainage with nonerythematous base. DIAGNOSTIC STUDIES/LAB DATA: Pertinent lab data: Carbon dioxide 21, BUN 25, creatinine 1.28, glucose 281, lactic acid 1.9. Troponin 0.06. WBC 13.7, hemoglobin 13.9, hematocrit 40, MCH 32. Urine was aden and turbid, had 3+ protein, 2+ blood, 2+ leukocyte esterase, 2+ wbc's, 3+ rbc's. Negative for influenza A and B. Brain CT: It showed no acute intracranial abnormalities and age-related atrophy and moderate chronic small vessel ischemic disease. Chest x-ray awaiting official radiologic read; however, there does not appear to be any acute cardiopulmonary processes. ASSESSMENT AND PLAN: My impression, this is an 89-year-old male with a past medical history significant for diabetes, coronary artery disease, and deep venous thrombosis, who was admitted on 04/29/19 for sepsis secondary to urinary tract infection and gross hematuria. 1. Sepsis secondary to urinary tract infection. Sepsis is as evidenced by tachypnea, leukocytosis, and initial tachycardia. Initially, he received 2400 mL of IV fluids and 1 g of ceftriaxone. Lactic acid was below 2. We will continue normal saline at 100 as well as ceftriaxone 1 g daily. Upon evaluation , there is tenderness over the bladder. Subsequently bladder scanned and was found to have over 400 mL of urine in his bladder, despite Gastelum having been irrigated previously in the emergency room. Had Gastelum catheter changed and placed with a larger gauge. There was noted to be caryn blood in the urethra and upon inserting a new catheter, the first half of the 600 mL output had caryn red blood and now appears to be flowing freely. 2. Hematuria. This is a new problem for the patient that started on 04/28/19. This is likely secondary to his urinary tract infection; however, I cannot ignore the fact that he has had a 25-pound weight loss in the past 6 months to 1 year and poor appetite. I have placed a consult to Dr. Cardenas to possibly perform cystoscopy and the patient to evaluate for the presence of bladder cancer. We will also do a CT of the abdomen and pelvis in the a.m. with contrast to further evaluate for stones and/or mass. 3. Elevated troponin. His troponin initially 0.06, is without any signs or symptoms of acute coronary syndrome. We will order subsequent troponins every 3 hours until they trend down. EKG did not have any obvious signs of ST elevation, is 100% ventricularly paced. This is perhaps secondary to demand. 4. Weakness. Due to patient's inability to stand or transfer on his own, I will be ordering physical therapy. This is likely secondary to his acute infection. 5. Diabetes, type 2. Continue glimepiride. Ordered fingersticks a.c. with sliding scale lispro coverage. 6. Coronary artery disease. We are to continue his aspirin. He is having no chest pain at this time. 7. Atrial fibrillation. We are to continue his digoxin. He is not currently on any anticoagulants due to his fall risk. 8. Sleep apnea. He had been using CPAP up until he went into the halfway and there, at that point, he wished to not continue the use because of all the other things he was connected to and has not resumed its use upon returning to home and does not wish to use it while he is here. He was recommended 2 L of oxygen at night via nasal cannula. 9. Benign prostatic hyperplasia. He should continue his tamsulosin and finasteride. 10. DVT prophylaxis. SCDs. Anticoagulations at this point are contraindicated due to gross hematuria. 11. Code status: Full code. CONDITION: Guarded. DISPOSITION: To admit OBV to [address] [place] [address]. TIME SPENT: Time spent on the patient is about 60 minutes with 30 of that spent face to face. ALEJANDRA DEBORAH, PROPERTY DEVELOPER [id number]/[facility] #: [id number] MTDD
[2019-04-29 06:14] LABS: ABS Lymphocytes 0.8 10^3/ul (1.0-4.8); ABS Monocytes 0.6 10^3/ul (0-0.8); ABS Neutrophils 10.8 10^3/ul (1.5-7.7); Hematocrit 35 % (42-52); Hemoglobin 11.7 g/dL (14.0-18.0); Lymphocyte % 6.3 %; Mean Corpuscular HGB Conc 34 g/dL (31-36); Mean Corpuscular Hemoglobin 32 pg (27-31); Mean Corpuscular Volume 93 fL (80-94); Platelet Count 204 10^3/uL (150-450); Red Blood Count 3.73 10^6 /uL (4.18-5.48); Red Cell Distribution Width 14 % (10-15); White Blood Count 12.2 10^3/uL (3.5-10.8)
[2019-04-29 06:33] LABS: BUN/Creatinine Ratio 21.3 (8-20); Calcium 7.7 mg/dL (8.6-10.3); EGFR African American 91.9 (>60); EGFR Non-African American 75.9 (>60); Potassium 4.1 mmol/L (3.5-5.0)
[2019-04-29] MEDS ORDERED: CMCS:Glimepiride (NF) 2 MG TAB PO SCH (08:30)
[2019-04-29] MEDS: Insulin LISPRO* 1 UNITS UNIT SUBCUT SCH ×3 (08:33→16:54)
[2019-04-29] MEDS ORDERED: Iodixanol* (CONTRAST) 320 MG/ML 100 ML SDV IV SCH (08:44)
[2019-04-29] MEDS: Finasteride TAB* 5 MG PO SCH (09:36)
[2019-04-29] MEDS: Multivitamins/Minerals TAB PO SCH (09:36)
[2019-04-29] MEDS: Cyanocobalamin TAB* 500 MCG PO SCH (09:36)
[2019-04-29] MEDS: Aspirin 81 mg CHEW TAB* 81 MG TAB.CHEW PO SCH (09:37)
--- NOTE | 2019-04-29 11:26 | PN ---
Subjective Date of Service: 04/29/19 Interval History: HD1 on 04/29/19 89M likely Parkinsons at baseline, NIDDM, CAD, Afib on NOT on AC, SSS s/p PPM and ICD, hx of DVT, CHINMAY not on CPAP, BPH with with recent chronic cath since Jan 2019 who presented with sepsis thought to be from UTI, LAM, and gross hematuria in so bag, also with elevated troponin. Overnight, VSS, no acute events Labs:WBC trending down, Cr returned to normal This morning, seen with at bedside, EEK but pleasant and well, only complaint is hunger and neck pain. Oriented to self and place but not very much time or event. No CP, SOB, GI, complaints. Discussed plan of care and updated family. Objective Active Medications: Acetaminophen (Tylenol Tab*) 650 mg PO Q4H PRN PRN Reason: MILD PAIN or TEMP > 100.4 Aspirin (Aspirin 81 Mg Chew Tab*) 81 mg PO DAILY [facility] Last Admin: 04/29/19 09:37 Dose: 81 mg Cyanocobalamin (Vitamin B12 Tab*) 500 mcg PO DAILY [facility] Last Admin: 04/29/19 09:36 Dose: 500 mcg Dextrose (D50w Syringe 50 Ml*) 12.5 gm IV PUSH .FOR FS < 60 - SS PRN PRN Reason: FS < 60 Digoxin (Lanoxin Tab*) 0.125 mg PO MoWeFr@1700 [facility] Finasteride (Proscar Tab*) 5 mg PO DAILY [facility] Last Admin: 04/29/19 09:36 Dose: 5 mg Glimepiride (Glimepiride (Nf)) 0.5 mg PO DAILY WITH MEAL [facility] Last Admin: 04/29/19 08:34 Dose: Not Given Sodium Chloride (Ns 0.9% 1000 Ml) 1,000 mls @ 100 mls/hr IV PER RATE [facility] Last Admin: 04/29/19 01:11 Dose: 100 mls/hr Ceftriaxone Sodium 1 gm/ (Sodium Chloride) 50 mls @ 100 mls/hr IVPB Q24H [facility] Insulin Human Lispro (Humalog*) 0 units SUBCUT AC [facility]; Protocol Last Admin: 04/29/19 08:33 Dose: Not Given Iodixanol (Visipaque* 320 (Contrast)) 99 ml IV ONCE [facility] Stop: 05/01/19 08:43 Multivitamins/Minerals (Theragran/Minerals Tab*) 1 tab PO DAILY [facility] Last Admin: 04/29/19 09:36 Dose: 1 tab Ondansetron HCl (Zofran Inj*) 4 mg IV Q4H PRN PRN Reason: NAUSEA/VOMITING Tamsulosin HCl (Flomax Cap*) 0.4 mg PO BEDTIME [facility] Vital Signs - 8 hr 04/29/19 04/29/19 04/29/19 07:15 08:40 09:36 Temperature 97.4 F Pulse Rate 77 73 Respiratory 18 Rate Blood Pressure 115/63 (mmHg) O2 Sat by Pulse 97 97 Oximetry Oxygen Devices in Use Now: None Appearance: Frail elderly man in NAD Eyes: No Scleral Icterus, PERRLA Ears/Nose/Mouth/Throat: NL Teeth, Lips, Gums, - - Dry MM Neck: NL Appearance and Movements; NL JVP Respiratory: Symmetrical Chest Expansion and Respiratory Effort, Clear to Auscultation Cardiovascular: NL Sounds; No Murmurs; No JVD, - - Irreg irreg Abdominal: NL Sounds; No Tenderness; No Distention, No Hepatosplenomegaly Lymphatic: No Cervical Adenopathy Extremities: No Edema Skin: No Rash or Ulcers Neurological: - - Oriented to self and place, not time or event Lines/Tubes/Other Access: Clean, Dry and Intact So Result Diagrams: 04/29/19 06:01 04/29/19 06:01 Diagnostic Imaging: CXR 04/28 No acute intrathoracic path CTH 04/28 IMPRESSION: 1. No acute intracranial abnormality. 2. Age-related atrophy and moderate chronic small vessel ischemic disease. CTAP 04/29: Pending Assess/Plan/Problems-Billing Assessment: 89M likely Parkinsons at baseline, NIDDM, CAD, Afib on NOT on AC, SSS s/p PPM and ICD, hx of DVT, CHINMAY not on CPAP, BPH with with recent chronic cath since Jan 2019 who presented with sepsis thought to be from UTI, LAM, and gross hematuria in so bag, also with elevated troponin. - Patient Problems (1) Sepsis Current Visit: Yes Status: Acute Comment: - Thought to be from urinary source, resolved. - Resolving WBC, no longer meeting SIRS criteria. - 100cc/hr NS for total of 3 L then stop. (2) UTI (urinary tract infection) Current Visit: Yes Status: Acute Comment: - Hematuria and weakness on presentation, pyruia on UA - CTX Day 05/01-14 on 04/29 - Follow culture data (3) Hematuria Current Visit: Yes Status: Acute Code(s): R31.9 - HEMATURIA, UNSPECIFIED SNOMED Code(s): 66019424 Comment: - Gross hematuria on presentation, since resolved, possibly trauma or infection related vs intraluminal pathology - CTAP pending results, may need urologic intervention if unrevealing. - Hemoglobin 13->11, CTM (4) Urinary retention Current Visit: No Status: Acute Code(s): R33.9 - RETENTION OF URINE, UNSPECIFIED SNOMED Code(s): 280908382 Comment: - Chronic so since January, possibly related to underlying PD vs intraluminal path as above - Contnue tamsuloin, finasteride - Follows with Dr. Horvath (5) Atrial fibrillation Current Visit: No Status: Acute Code(s): I48.91 - UNSPECIFIED ATRIAL FIBRILLATION SNOMED Code(s): 89847818 Comment: - Off of AC / to frequent falls - Rate controlled with low dose digoxin (6) CAD (coronary artery disease) Current Visit: No Status: Acute Code(s): I25.10 - ATHSCL HEART DISEASE OF [place] CORONARY ARTERY W/O ANG PCTRS SNOMED Code(s): 24604581 Comment: - Asa alone, not on statin (didn't tolerate) or BB (7) Diabetes mellitus Current Visit: No Status: Acute Code(s): E11.9 - TYPE 2 DIABETES MELLITUS WITHOUT COMPLICATIONS SNOMED Code(s): 81823909 Comment: - HA1c 6.20 Jan 2019 - Continue FS, lispro ss - Carb consistent (8) CHINMAY (obstructive sleep apnea) Current Visit: No Status: Acute Code(s): G47.33 - OBSTRUCTIVE SLEEP APNEA ( ADULT) (PEDIATRIC) SNOMED Code(s): 21309563 Comment: - Not on home CPAP (9) Parkinsonism Current Visit: No Status: Acute Code(s): G20 - PARKINSON'S DISEASE SNOMED Code(s): 55743866 Comment: - Last seen June 2016 by Lisha for parkinsonism; at that time frequent falls , no tremor; 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
[2019-04-29] MEDS: Tamsulosin CAP* 0.4 MG PO SCH (20:31)
[2019-04-29] MEDS: cefTRIAXone(*) 1 GM in NS 0.9% 50 ML* 50 ML IVPB SCH (20:31)
[2019-04-30 05:31] LABS: ABS Basophils 0.1 10^3/ul (0-0.2); ABS Eosinophils 0.2 10^3/ul (0-0.6); ABS Lymphocytes 1.6 10^3/ul (1.0-4.8); ABS Monocytes 0.5 10^3/ul (0-0.8); ABS Neutrophils 5.3 10^3/ul (1.5-7.7); Eosinophil % 2.4 %; Hematocrit 32 % (42-52); Hemoglobin 10.9 g/dL (14.0-18.0); Lymphocyte % 20.3 %; Mean Corpuscular HGB Conc 34 g/dL (31-36); Mean Corpuscular Hemoglobin 32 pg (27-31); Mean Corpuscular Volume 93 fL (80-94); Mean Platelet Volume 7.7 fL (7.4-10.4); Platelet Count 170 10^3/uL (150-450); Red Blood Count 3.43 10^6 /uL (4.18-5.48); Red Cell Distribution Width 14 % (10-15); White Blood Count 7.7 10^3/uL (3.5-10.8)
[2019-04-30 05:48] LABS: BUN/Creatinine Ratio 22.4 (8-20); Calcium 7.8 mg/dL (8.6-10.3); EGFR African American 103.2 (>60); EGFR Non-African American 85.3 (>60); Potassium 3.7 mmol/L (3.5-5.0)
--- NOTE | 2019-04-30 07:38 | PN ---
Subjective Date of Service: 04/30/19 Interval History: HD2 on 04/30/19 89M likely Parkinson's at baseline, NIDDM, CAD, afib on NOT on AC, SSS s/p PPM and ICD, hx of DVT, CHINMAY not on CPAP, BPH with with recent chronic cath since Jan 2019 who presented with sepsis thought to be from UTI, LAM, and gross hematuria in so bag, also with elevated troponin. Overnight, VSS, no acute events Labs: WBC trending down, Cr returned to normal CT Scan showed what appears to be infectious findings, prostatitis and cystitis over a bladder tumor This morning, pt reports no new complaints, he is a poor historian and oriented to self and place only at baseline. He is very hard of hearing. Eager to go home , though has not eaten and doesn't appear to be walking. He has no complaints of pain, or GI complaints. not at bedside but will update in the afternoon. Objective Active Medications: Acetaminophen (Tylenol Tab*) 650 mg PO Q4H PRN PRN Reason: MILD PAIN or TEMP > 100.4 Aspirin (Aspirin 81 Mg Chew Tab*) 81 mg PO DAILY [facility] Last Admin: 04/29/19 09:37 Dose: 81 mg Cyanocobalamin (Vitamin B12 Tab*) 500 mcg PO DAILY [facility] Last Admin: 04/29/19 09:36 Dose: 500 mcg Dextrose (D50w Syringe 50 Ml*) 12.5 gm IV PUSH .FOR FS < 60 - SS PRN PRN Reason: FS < 60 Digoxin (Lanoxin Tab*) 0.125 mg PO MoWeFr@1700 [facility] Finasteride (Proscar Tab*) 5 mg PO DAILY [facility] Last Admin: 04/29/19 09:36 Dose: 5 mg Sodium Chloride (Ns 0.9% 1000 Ml) 1,000 mls @ 100 mls/hr IV PER RATE [facility] Stop: 05/01/19 09:44 Last Admin: 04/29/19 23:36 Dose: 100 mls/hr Ceftriaxone Sodium 1 gm/ (Sodium Chloride) 50 mls @ 100 mls/hr IVPB Q24H [facility] Last Admin: 04/29/19 20:31 Dose: 100 mls/hr Insulin Human Lispro (Humalog*) 0 units SUBCUT AC [facility]; Protocol Last Admin: 04/29/19 16:54 Dose: Not Given Multivitamins/Minerals (Theragran/Minerals Tab*) 1 tab PO DAILY [facility] Last Admin: 04/29/19 09:36 Dose: 1 tab Ondansetron HCl (Zofran Inj*) 4 mg IV Q4H PRN PRN Reason: NAUSEA/VOMITING Tamsulosin HCl (Flomax Cap*) 0.4 mg PO BEDTIME [facility] Last Admin: 04/29/19 20:31 Dose: 0.4 mg Vital Signs - 8 hr 04/30/19 03:15 Temperature 98.3 F Pulse Rate 83 Respiratory 18 Rate Blood Pressure 103/59 (mmHg) O2 Sat by Pulse 99 Oximetry Oxygen Devices in Use Now: None Appearance: [place] man in NAD Eyes: No Scleral Icterus, PERRLA Ears/Nose/Mouth/Throat: NL Teeth, Lips, Gums Neck: NL Appearance and Movements; NL JVP Respiratory: Symmetrical Chest Expansion and Respiratory Effort, Clear to Auscultation Cardiovascular: NL Sounds; No Murmurs; No JVD, - - Irreg irreg Abdominal: NL Sounds; No Tenderness; No Distention, No Hepatosplenomegaly Lymphatic: No Cervical Adenopathy Extremities: No Edema Neurological: - - Oriented Result Diagrams: 04/30/19 04:57 04/30/19 04:57 Microbiology and Other Data: Microbiology 04/28/19 21:10 Aerobic Blood Culture - Preliminary Blood Venous No Growth Day 1 Anaerobic Blood Culture - Preliminary No Growth Day 1 04/28/19 21:10 Aerobic Blood Culture - Preliminary Blood Venous No Growth Day 1 Anaerobic Blood Culture - Preliminary No Growth Day 1 Diagnostic Imaging: CXR 04/28 No acute intrathoracic path CTH 04/28 IMPRESSION: 1. No acute intracranial abnormality. 2. Age-related atrophy and moderate chronic small vessel ischemic disease. CT AP: 04/29 IMPRESSION: 1. DIFFUSE THICKENING OF THE WALL OF THE BLADDER WITH INCREASED ENHANCEMENT AND INTERSTITIAL STRANDING SUGGESTIVE OF CYSTITIS LESS LIKELY A BLADDER TUMOR. Assess/Plan/Problems-Billing Assessment: 89M likely Parkinsons at baseline, NIDDM, CAD, Afib on NOT on AC, SSS s/p PPM and ICD, hx of DVT, CHINMAY not on CPAP, BPH with with recent chronic cath since Jan 2019 who presented with sepsis thought to be from UTI, LAM, and gross hematuria in so bag, also with elevated troponin. - Patient Problems (1) Sepsis Current Visit: Yes Status: Resolved Comment: - Thought to be from urinary source, resolved. - Resolving WBC, no longer meeting SIRS criteria. - 100cc/hr NS for total of 3 L then stop. (2) UTI (urinary tract infection) Current Visit: Yes Status: Acute Comment: - Hematuria and weakness on presentation, pyruia on UA, also with radiographic evidence of prostatits - CTX Day 05/29-14 on 04/30, checked with [facility] and CTX still appropriate for prostatitis - Follow culture data (3) Hematuria Current Visit: Yes Status: Acute Code(s): R31.9 - HEMATURIA, UNSPECIFIED SNOMED Code(s): 77983789 Comment: - Gross hematuria on presentation, since resolved, seems trauma and infection related > intraluminal pathology - CTAP showing prostatitis and cystitis, may need urologic intervention as an outpatient but improving on CTX - Hemoglobin 13->11->10.7 CTM (4) Urinary retention Current Visit: No Status: Acute Code(s): R33.9 - RETENTION OF URINE, UNSPECIFIED SNOMED Code(s): 589952925 Comment: - Chronic so since January, possibly related to underlying PD vs intraluminal path as above - Contnue tamsuloin, finasteride - Follows with Dr. Horvath (5) Atrial fibrillation Current Visit: No Status: Acute Code(s): I48.91 - UNSPECIFIED ATRIAL FIBRILLATION SNOMED Code(s): 26731658 Comment: - Off of AC 2/2 to frequent falls - Rate controlled with low dose digoxin (6) CAD (coronary artery disease) Current Visit: No Status: Acute Code(s): I25.10 - ATHSCL HEART DISEASE OF [place] CORONARY ARTERY W/O ANG PCTRS SNOMED Code(s): 50746196 Comment: - Asa alone, not on statin (didn't tolerate) or BB (7) Diabetes mellitus Current Visit: No Status: Acute Code(s): E11.9 - TYPE 2 DIABETES MELLITUS WITHOUT COMPLICATIONS SNOMED Code(s): 56239138 Comment: - HA1c 6.20 Jan 2019 - Continue FS, lispro ss - Carb consistent (8) CHINMAY (obstructive sleep apnea) Current Visit: No Status: Acute Code(s): G47.33 - OBSTRUCTIVE SLEEP APNEA ( ADULT) (PEDIATRIC) SNOMED Code(s): 11018162 Comment: - Not on home CPAP (9) Parkinsonism Current Visit: No Status: Acute Code(s): G20 - PARKINSON'S DISEASE SNOMED Code(s): 56437006 Comment: - Last seen June 2016 by Lisha for parkinsonism; at that time frequent falls , no tremor; 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
[2019-04-30] MEDS: Insulin LISPRO* 1 UNITS UNIT SUBCUT SCH ×3 (08:51→17:32)
[2019-04-30] MEDS: Aspirin 81 mg CHEW TAB* 81 MG TAB.CHEW PO SCH (09:58)
[2019-04-30] MEDS: Multivitamins/Minerals TAB PO SCH (09:58)
[2019-04-30] MEDS: Cyanocobalamin TAB* 500 MCG PO SCH (09:58)
[2019-04-30] MEDS: Finasteride TAB* 5 MG PO SCH (09:58)
[2019-04-30] MEDS ORDERED: NS 0.9% 1000 ML** 1,000 ML IV SCH (15:30)
[2019-04-30] MEDS: Tamsulosin CAP* 0.4 MG PO SCH (21:10)
[2019-04-30] MEDS: cefTRIAXone(*) 1 GM in NS 0.9% 50 ML* 50 ML IVPB SCH (21:11)
[2019-05-01 05:48] LABS: ABS Basophils 0.1 10^3/ul (0-0.2); ABS Eosinophils 0.3 10^3/ul (0-0.6); ABS Lymphocytes 1.3 10^3/ul (1.0-4.8); ABS Monocytes 0.4 10^3/ul (0-0.8); Eosinophil % 4.4 %; Hematocrit 33 % (42-52); Hemoglobin 11.2 g/dL (14.0-18.0); Lymphocyte % 20.8 %; Mean Corpuscular HGB Conc 34 g/dL (31-36); Mean Corpuscular Hemoglobin 31 pg (27-31); Mean Corpuscular Volume 93 fL (80-94); Mean Platelet Volume 7.5 fL (7.4-10.4); Platelet Count 176 10^3/uL (150-450); Red Blood Count 3.59 10^6 /uL (4.18-5.48); Red Cell Distribution Width 14 % (10-15)
[2019-05-01 06:06] LABS: Anion Gap 7 mmol/L (2-11); BUN/Creatinine Ratio 22.1 (8-20); Blood Urea Nitrogen 15 mg/dL (6-24); CO2 Carbon Dioxide 22 mmol/L (22-32); Calcium 7.8 mg/dL (8.6-10.3); Chloride 111 mmol/L (101-111); EGFR African American 133.5 (>60); EGFR Non-African American 110.3 (>60); Glucose 104 mg/dL (70-100); Potassium 3.6 mmol/L (3.5-5.0); Sodium 140 mmol/L (135-145)
[2019-05-01 06:10] LABS: Troponin I 0.03 ng/mL (<0.03)
--- NOTE | 2019-05-01 07:26 | PN ---
Subjective Date of Service: 05/01/19 Interval History: HD3 on 05/01/19 89M likely Parkinson's at baseline, NIDDM, CAD, afib on NOT on AC, SSS s/p PPM and ICD, hx of DVT, CHINMAY not on CPAP, BPH with with recent chronic cath since Jan 2019 who presented with sepsis thought to be from UTI, LAM, and gross hematuria in so bag, also with elevated troponin. Overnight, VSS, no acute events Labs: WBC trending down, Cr returned to normal CT Scan showed what appears to be infectious findings, prostatitis and cystitis over a bladder tumor, I did call to Urology today to have them review the scans This morning, seems much more pleasant and aware, reporting some hunger. Oriented to self, place, and roughly even but not date, improvement from yesterday, polite with no complaints. Will update at bedside Objective Active Medications: Acetaminophen (Tylenol Tab*) 650 mg PO Q4H PRN PRN Reason: MILD PAIN or TEMP > 100.4 Aspirin (Aspirin 81 Mg Chew Tab*) 81 mg PO DAILY [facility] Last Admin: 04/30/19 09:58 Dose: 81 mg Cyanocobalamin (Vitamin B12 Tab*) 500 mcg PO DAILY [facility] Last Admin: 04/30/19 09:58 Dose: 500 mcg Dextrose (D50w Syringe 50 Ml*) 12.5 gm IV PUSH .FOR FS < 60 - SS PRN PRN Reason: FS < 60 Digoxin (Lanoxin Tab*) 0.125 mg PO MoWeFr@1700 [facility] Finasteride (Proscar Tab*) 5 mg PO DAILY [facility] Last Admin: 04/30/19 09:58 Dose: 5 mg Ceftriaxone Sodium 1 gm/ (Sodium Chloride) 50 mls @ 100 mls/hr IVPB Q24H [facility] Last Admin: 04/30/19 21:11 Dose: 100 mls/hr Insulin Human Lispro (Humalog*) 0 units SUBCUT AC [facility]; Protocol Last Admin: 04/30/19 17:32 Dose: 1 unit Multivitamins/Minerals (Theragran/Minerals Tab*) 1 tab PO DAILY [facility] Last Admin: 04/30/19 09:58 Dose: 1 tab Ondansetron HCl (Zofran Inj*) 4 mg IV Q4H PRN PRN Reason: NAUSEA/VOMITING Tamsulosin HCl (Flomax Cap*) 0.4 mg PO BEDTIME [facility] Last Admin: 04/30/19 21:10 Dose: 0.4 mg Vital Signs - 8 hr 05/01/19 03:06 Temperature 98.3 F Pulse Rate 84 Respiratory 17 Rate Blood Pressure 115/61 (mmHg) O2 Sat by Pulse 96 Oximetry Oxygen Devices in Use Now: Nasal Cannula Appearance: Pleasant man [place] in NAD Eyes: No Scleral Icterus Ears/Nose/Mouth/Throat: NL Teeth, Lips, Gums, Clear Oropharnyx Respiratory: Symmetrical Chest Expansion and Respiratory Effort, Clear to Auscultation Cardiovascular: - - Irreg irreg Abdominal: NL Sounds; No Tenderness; No Distention Lymphatic: No Cervical Adenopathy Extremities: No Edema Skin: No Rash or Ulcers Neurological: - - Oriented to self, place, event, not to time Result Diagrams: 05/01/19 05:31 05/01/19 05:31 Microbiology and Other Data: Microbiology 04/28/19 21:10 Aerobic Blood Culture - Preliminary Blood Venous No Growth Day 1 Anaerobic Blood Culture - Preliminary No Growth Day 1 04/28/19 21:10 Aerobic Blood Culture - Preliminary Blood Venous No Growth Day 1 Anaerobic Blood Culture - Preliminary No Growth Day 1 Diagnostic Imaging: CXR 04/28 No acute intrathoracic path CTH 04/28 IMPRESSION: 1. No acute intracranial abnormality. 2. Age-related atrophy and moderate chronic small vessel ischemic disease. CT AP: 04/29 IMPRESSION: 1. DIFFUSE THICKENING OF THE WALL OF THE BLADDER WITH INCREASED ENHANCEMENT AND INTERSTITIAL STRANDING SUGGESTIVE OF CYSTITIS LESS LIKELY A BLADDER TUMOR. Assess/Plan/Problems-Billing Assessment: 89M likely Parkinsons at baseline, NIDDM, CAD, Afib on NOT on AC, SSS s/p PPM and ICD, hx of DVT, CHINMAY not on CPAP, BPH with with recent chronic cath since Jan 2019 who presented with sepsis thought to be from UTI, LAM, and gross hematuria in so bag, appearing to all be from prostatitis/cystits - Patient Problems (1) Sepsis Current Visit: Yes Status: Resolved Comment: - Thought to be from urinary source, resolved. - Resolving WBC, no longer meeting SIRS criteria. - 100cc/hr NS for total of 3 L then stop. (2) UTI (urinary tract infection) Current Visit: Yes Status: Acute Comment: - Hematuria and weakness on presentation, pyruia on UA, also with radiographic evidence of prostatits - CTX Day 06/29-14 on 04/30, checked with IDSA and CTX still appropriate for prostatitis - Follow culture data (3) Hematuria Current Visit: Yes Status: Acute Code(s): R31.9 - HEMATURIA, UNSPECIFIED SNOMED Code(s): 28878584 Comment: - Gross hematuria on presentation, since resolved, seems trauma and infection related > intraluminal pathology - CTAP showing prostatitis and cystitis, may need urologic intervention as an outpatient but improving on CTX - Hemoglobin 13->11, and now stable (4) Urinary retention Current Visit: No Status: Acute Code(s): R33.9 - RETENTION OF URINE, UNSPECIFIED SNOMED Code(s): 281867974 Comment: - Chronic so since January, possibly related to underlying PD vs intraluminal path as above - Contnue tamsuloin, finasteride - Follows with Dr. Horvath, Dr Gonsalves to review scans today (5) Atrial fibrillation Current Visit: No Status: Acute Code(s): I48.91 - UNSPECIFIED ATRIAL FIBRILLATION SNOMED Code(s): 95098514 Comment: - Off of AC 04/23 to frequent falls - Rate controlled with low dose digoxin (6) CAD (coronary artery disease) Current Visit: No Status: Acute Code(s): I25.10 - ATHSCL HEART DISEASE OF [place] CORONARY ARTERY W/O ANG PCTRS SNOMED Code(s): 49651185 Comment: - Asa alone, not on statin (didn't tolerate) or BB (7) Diabetes mellitus Current Visit: No Status: Acute Code(s): E11.9 - TYPE 2 DIABETES MELLITUS WITHOUT COMPLICATIONS SNOMED Code(s): 65114630 Comment: - HA1c 6.20 Jan 2019 - Continue FS, lispro ss - Carb consistent (8) CHINMAY (obstructive sleep apnea) Current Visit: No Status: Acute Code(s): G47.33 - OBSTRUCTIVE SLEEP APNEA ( ADULT) (PEDIATRIC) SNOMED Code(s): 62317004 Comment: - Not on home CPAP (9) Parkinsonism Current Visit: No Status: Acute Code(s): G20 - PARKINSON'S DISEASE SNOMED Code(s): 44461477 Comment: - Last seen June 2016 by Lisha for parkinsonism; at that time frequent falls , no tremor; dx polyneuropathy (likely DM related), mild cognitive impairment, vascular parkinsonism, subsequent notes appear to show more Vascular dimentia (10) DVT prophylaxis Current Visit: No Status: Acute Code(s): Z29.9 - ENCOUNTER FOR PROPHYLACTIC MEASURES, UNSPECIFIED SNOMED Code(s): 089243018 Comment: - SCDS for gross hematuria on presentation (11) Full code status Current Visit: No Status: Acute Code(s): Z78.9 - OTHER SPECIFIED HEALTH STATUS SNOMED Code(s): 468090907 Comment: -Pt and seem to actually be more c/w DNR/DNI, will update MOLST later in the day Status and Disposition: Inpatient PT Consult in place Carb Consistent diet, though poor PO intake Dispo: Awaiting PT recommendations, possibly transition to oral abx depending on whether he is cleared for home vs STR
[2019-05-01] MEDS: Finasteride TAB* 5 MG PO SCH (08:43)
[2019-05-01] MEDS: Aspirin 81 mg CHEW TAB* 81 MG TAB.CHEW PO SCH (08:43)
[2019-05-01] MEDS: Cyanocobalamin TAB* 500 MCG PO SCH (08:43)
[2019-05-01] MEDS: Multivitamins/Minerals TAB PO SCH (08:49)
[2019-05-01] MEDS: Insulin LISPRO* 1 UNITS UNIT SUBCUT SCH ×3 (08:50→17:15)
--- NOTE | 2019-05-01 13:41 | PN ---
Hospitalist Progress Note Date of Service: 05/01/19 Met with at bedside, updated on improvement in clinical status, still needing him to work with PT/OT and have improved appetite. Also called Dr. Crao who noted pt had recent clean cystoscope in Mar 2019, no need for urgent inpatient urological follow up and can be schedueld as an outpt. We had a larger conversation about Boogie, his vascular dementia and his subacute decline with new placement of so catheter and complications, decline in his baseline mental status with each hit. She reveals to me Boogie is a minimalist and would never want to be full code, we fill out MOLST together with Boogie also present and he agrees on DNR DNI. She also asks questions about PATH program and if he is well enough she would like to take him home with VNS and information on PATH. Will pass this along to case mgmt, and have given strong delinquency counselor to participate in PT
[2019-05-01] MEDS: Digoxin TAB* 0.125 MG PO SCH (17:16)
[2019-05-01] MEDS: cefTRIAXone(*) 1 GM in NS 0.9% 50 ML* 50 ML IVPB SCH (20:43)
[2019-05-01] MEDS: Tamsulosin CAP* 0.4 MG PO SCH (20:43)
[2019-05-02 06:53] LABS: BUN/Creatinine Ratio 27.3 (8-20); Calcium 7.9 mg/dL (8.6-10.3); EGFR African American 115.6 (>60); EGFR Non-African American 95.6 (>60); Potassium 3.9 mmol/L (3.5-5.0)
--- NOTE | 2019-05-02 07:29 | PN ---
Subjective Date of Service: 05/02/19 Interval History: HD 4 on 05/02 89M likely Parkinson's at baseline, NIDDM, CAD, afib on NOT on AC, SSS s/p PPM and ICD, hx of DVT, CHINMAY not on CPAP, BPH with with recent chronic cath since Jan 2019 who presented with sepsis thought to be from UTI, LAM, and gross hematuria in so bag, also with elevated troponin. All from prostatitis, cystitis. Overnight, VSS, no acute events Labs: Stable BMP CT Scan showed what appears to be infectious findings, prostatitis and cystitis and no evidence pf bladder tumor on mar 2019 cystoscopy PT recommending STR This morning, pt is again confused and hard of hearing, oriented to self only this morning. Refusing breakfast, he waxes and wanes throughout the day. No complaints though and pleasant and usual. Objective Active Medications: Acetaminophen (Tylenol Tab*) 650 mg PO Q4H PRN PRN Reason: MILD PAIN or TEMP > 100.4 Aspirin (Aspirin 81 Mg Chew Tab*) 81 mg PO DAILY [facility] Last Admin: 05/01/19 08:43 Dose: 81 mg Cyanocobalamin (Vitamin B12 Tab*) 500 mcg PO DAILY [facility] Last Admin: 05/01/19 08:43 Dose: 500 mcg Dextrose (D50w Syringe 50 Ml*) 12.5 gm IV PUSH .FOR FS < 60 - SS PRN PRN Reason: FS < 60 Digoxin (Lanoxin Tab*) 0.125 mg PO MoWeFr@1700 [facility] Last Admin: 05/01/19 17:16 Dose: 0.125 mg Finasteride (Proscar Tab*) 5 mg PO DAILY [facility] Last Admin: 05/01/19 08:43 Dose: 5 mg Ceftriaxone Sodium 1 gm/ (Sodium Chloride) 50 mls @ 100 mls/hr IVPB Q24H [facility] Last Admin: 05/01/19 20:43 Dose: 100 mls/hr Insulin Human Lispro (Humalog*) 0 units SUBCUT [facility]; Protocol Last Admin: 05/01/19 17:15 Dose: 1 unit Multivitamins/Minerals (Theragran/Minerals Tab*) 1 tab PO DAILY [facility] Last Admin: 05/01/19 08:49 Dose: 1 tab Ondansetron HCl (Zofran Inj*) 4 mg IV Q4H PRN PRN Reason: NAUSEA/VOMITING Tamsulosin HCl (Flomax Cap*) 0.4 mg PO BEDTIME [facility] Last Admin: 05/01/19 20:43 Dose: 0.4 mg Vital Signs - 8 hr 05/02/19 02:54 Temperature 97.3 F Pulse Rate 80 Respiratory 18 Rate Blood Pressure 125/69 (mmHg) O2 Sat by Pulse 98 Oximetry Oxygen Devices in Use Now: None Appearance: Pleasant in NAD nut confused Eyes: No Scleral Icterus, PERRLA Ears/Nose/Mouth/Throat: NL Teeth, Lips, Gums Respiratory: Symmetrical Chest Expansion and Respiratory Effort, Clear to Auscultation Cardiovascular: - - irreg irreg Abdominal: NL Sounds; No Tenderness; No Distention, No Hepatosplenomegaly Lymphatic: No Cervical Adenopathy Extremities: No Edema Skin: No Rash or Ulcers Neurological: - - Oreinted to self Result Diagrams: 05/01/19 05:31 05/02/19 06:18 Microbiology and Other Data: Microbiology 04/28/19 21:10 Aerobic Blood Culture - Preliminary Blood Venous No Growth Day 1 Anaerobic Blood Culture - Preliminary No Growth Day 1 04/28/19 21:10 Aerobic Blood Culture - Preliminary Blood Venous No Growth Day 1 Anaerobic Blood Culture - Preliminary No Growth Day 1 Diagnostic Imaging: CXR 04/28 No acute intrathoracic path CTH 04/28 IMPRESSION: 1. No acute intracranial abnormality. 2. Age-related atrophy and moderate chronic small vessel ischemic disease. CT AP: 04/29 IMPRESSION: 1. DIFFUSE THICKENING OF THE WALL OF THE BLADDER WITH INCREASED ENHANCEMENT AND INTERSTITIAL STRANDING SUGGESTIVE OF CYSTITIS LESS LIKELY A BLADDER TUMOR. Assess/Plan/Problems-Billing Assessment: 89M likely Parkinsons at baseline, NIDDM, CAD, Afib on NOT on AC, SSS s/p PPM and ICD, hx of DVT, CHINMAY not on CPAP, BPH with with recent chronic cath since Jan 2019 who presented with sepsis thought to be from UTI, LAM, and gross hematuria in so bag, appearing to all be from prostatitis/cystits - Patient Problems (1) UTI (urinary tract infection) Current Visit: Yes Status: Acute Comment: - Hematuria and weakness on presentation, pyruia on UA, also with radiographic evidence of prostatits - CTX Day 07/29-14 on 05/02, checked with IDSA and CTX still appropriate for prostatitis, can transition to Bactrim or Cipro on d/c - Follow culture data - Holding on IVF 05/01, 05/02 as he has had better PO in take in the evenings (2) Hematuria Current Visit: Yes Status: Acute Code(s): R31.9 - HEMATURIA, UNSPECIFIED SNOMED Code(s): 19748388 Comment: - Gross hematuria on presentation, since resolved, seems trauma and infection related > intraluminal pathology - CTAP showing prostatitis and cystitis, may need urologic intervention as an outpatient but improving on CTX - Hemoglobin 13->11, and now stable (3) Urinary retention Current Visit: No Status: Acute Code(s): R33.9 - RETENTION OF URINE, UNSPECIFIED SNOMED Code(s): 163956353 Comment: - Chronic so since January, possibly related to underlying worsening dementia - Contnue tamsuloin, finasteride - Follows with Dr. Horvath, they can follow in the clinic, is to make appt on d/c (4) Atrial fibrillation Current Visit: No Status: Acute Code(s): I48.91 - UNSPECIFIED ATRIAL FIBRILLATION SNOMED Code(s): 75140657 Comment: - Off of AC 04/23 to frequent falls - Rate controlled with low dose digoxin (5) CAD (coronary artery disease) Current Visit: No Status: Acute Code(s): I25.10 - ATHSCL HEART DISEASE OF [place] CORONARY ARTERY W/O ANG PCTRS SNOMED Code(s): 59297823 Comment: - Asa alone, not on statin (didn't tolerate) or BB (6) Diabetes mellitus Current Visit: No Status: Acute Code(s): E11.9 - TYPE 2 DIABETES MELLITUS WITHOUT COMPLICATIONS SNOMED Code(s): 64335483 Comment: - HA1c 6.20 Jan 2019 - Continue FS, lispro ss - Carb consistent (7) CHINMAY (obstructive sleep apnea) Current Visit: No Status: Acute Code(s): G47.33 - OBSTRUCTIVE SLEEP APNEA ( ADULT) (PEDIATRIC) SNOMED Code(s): 37822335 Comment: - Not on home CPAP (8) Vascular dementia Current Visit: Yes Status: Acute Code(s): F01.50 - VASCULAR DEMENTIA WITHOUT BEHAVIORAL DISTURBANCE SNOMED Code(s): 507193850 Comment: Moderate to severe on detailed hx taking with his , she has been managing his incontinence for several months, he has shown disenterest in food and his mobility is profound -Oriented to self at baseline per -He does not have capacity to make medical decisions, though his still largely includes him -She is interested in an overall palliative approach, and he may benefit from PATH/AIM vs home hospice if in fact they decide that his MOLST is do not hospitlize, she is not sure she is at that point yet. -Pall care consult (9) DVT prophylaxis Current Visit: No Status: Acute Code(s): Z29.9 - ENCOUNTER FOR PROPHYLACTIC MEASURES, UNSPECIFIED SNOMED Code(s): 001948169 Comment: - SCDS for gross hematuria on presentation (10) Full code status Current Visit: No Status: Acute Code(s): Z78.9 - OTHER SPECIFIED HEALTH STATUS SNOMED Code(s): 101936633 Comment: -Pt and seem to actually be more c/w DNR/DNI, will update MOLST later in the day Status and Disposition: Inpatient PT Consult in place Carb Consistent diet, though poor PO intake Dispo: PT recommending STR, alterantively pt could go home with do not hospitlize on MOLST orders and convert to full home hospice if can manage caregiving
[2019-05-02] MEDS: Insulin LISPRO* 1 UNITS UNIT SUBCUT SCH ×3 (09:38→18:42)
[2019-05-02] MEDS: Cyanocobalamin TAB* 500 MCG PO SCH (09:39)
[2019-05-02] MEDS: Finasteride TAB* 5 MG PO SCH (09:39)
[2019-05-02] MEDS: Aspirin 81 mg CHEW TAB* 81 MG TAB.CHEW PO SCH (09:39)
[2019-05-02] MEDS: Multivitamins/Minerals TAB PO SCH (09:39)
--- NOTE | 2019-05-02 12:52 | PN ---
Progress Note - Progress Note Date of Service: 05/02/19 Note: Left message for .
[2019-05-02] MEDS: Tamsulosin CAP* 0.4 MG PO SCH (20:32)
[2019-05-02] MEDS: cefTRIAXone(*) 1 GM in NS 0.9% 50 ML* 50 ML IVPB SCH (20:32)
--- NOTE | 2019-05-03 07:58 | PN ---
Subjective Date of Service: 05/03/19 Interval History: HD 5 on 05/03 89M vascular dementia at baseline, NIDDM, CAD, afib on NOT on AC, SSS s/p PPM and ICD, hx of DVT, CHINMAY not on CPAP, BPH with with recent chronic cath since Jan 2019 who presented with sepsis thought to be from UTI, LAM, and gross hematuria in so bag, also with elevated troponin. All from prostatitis, cystitis. Overnight, VSS, no acute events Labs: Not checked today CT Scan showed what appears to be infectious findings, prostatitis and cystitis and no evidence pf bladder tumor on mar 2019 cystoscopy PT recommending STR This morning, resting peacefully, startles easily, oriented to self and place not event. Polite without complaints, still declining breakfast. Voding freely. His Michelle, meeting with Dr. Angulo today. Objective Active Medications: Acetaminophen (Tylenol Tab*) 650 mg PO Q4H PRN PRN Reason: MILD PAIN or TEMP > 100.4 Aspirin (Aspirin 81 Mg Chew Tab*) 81 mg PO DAILY [facility] Last Admin: 05/02/19 09:39 Dose: 81 mg Cyanocobalamin (Vitamin B12 Tab*) 500 mcg PO DAILY [facility] Last Admin: 05/02/19 09:39 Dose: 500 mcg Dextrose (D50w Syringe 50 Ml*) 12.5 gm IV PUSH .FOR FS < 60 - SS PRN PRN Reason: FS < 60 Digoxin (Lanoxin Tab*) 0.125 mg PO MoWeFr@1700 [facility] Last Admin: 05/01/19 17:16 Dose: 0.125 mg Finasteride (Proscar Tab*) 5 mg PO DAILY [facility] Last Admin: 05/02/19 09:39 Dose: 5 mg Ceftriaxone Sodium 1 gm/ (Sodium Chloride) 50 mls @ 100 mls/hr IVPB Q24H [facility] Last Admin: 05/02/19 20:32 Dose: 100 mls/hr Insulin Human Lispro (Humalog*) 0 units SUBCUT [facility]; Protocol Last Admin: 05/02/19 18:42 Dose: 1 unit Multivitamins/Minerals (Theragran/Minerals Tab*) 1 tab PO DAILY [facility] Last Admin: 05/02/19 09:39 Dose: 1 tab Ondansetron HCl (Zofran Inj*) 4 mg IV Q4H PRN PRN Reason: NAUSEA/VOMITING Tamsulosin HCl (Flomax Cap*) 0.4 mg PO BEDTIME [facility] Last Admin: 05/02/19 20:32 Dose: 0.4 mg Vital Signs - 8 hr 05/02/19 05/03/19 23:59 02:47 Temperature 98.1 F 97.7 F Pulse Rate 84 73 Respiratory 20 18 Rate Blood Pressure 128/66 110/55 (mmHg) O2 Sat by Pulse 97 96 Oximetry Oxygen Devices in Use Now: None Appearance: Pleasant man resting in bed Eyes: No Scleral Icterus Ears/Nose/Mouth/Throat: NL Teeth, Lips, Gums Neck: NL Appearance and Movements; NL JVP Respiratory: Symmetrical Chest Expansion and Respiratory Effort, Clear to Auscultation Cardiovascular: - - irreg irreg Abdominal: NL Sounds; No Tenderness; No Distention Lymphatic: No Cervical Adenopathy Extremities: No Edema Skin: No Rash or Ulcers Neurological: - - Oriented to self and place Result Diagrams: 05/01/19 05:31 05/02/19 06:18 Microbiology and Other Data: Microbiology 04/28/19 21:10 Aerobic Blood Culture - Preliminary Blood Venous No Growth Day 1 Anaerobic Blood Culture - Preliminary No Growth Day 1 04/28/19 21:10 Aerobic Blood Culture - Preliminary Blood Venous No Growth Day 1 Anaerobic Blood Culture - Preliminary No Growth Day 1 Diagnostic Imaging: CXR 04/28 No acute intrathoracic path CTH 04/28 IMPRESSION: 1. No acute intracranial abnormality. 2. Age-related atrophy and moderate chronic small vessel ischemic disease. CT AP: 04/29 IMPRESSION: 1. DIFFUSE THICKENING OF THE WALL OF THE BLADDER WITH INCREASED ENHANCEMENT AND INTERSTITIAL STRANDING SUGGESTIVE OF CYSTITIS LESS LIKELY A BLADDER TUMOR. Assess/Plan/Problems-Billing Assessment: 89M vascular dementia at baseline, NIDDM, CAD, Afib on NOT on AC, SSS s/p PPM and ICD, hx of DVT, CHINMAY not on CPAP, BPH with with recent chronic cath since Jan 2019 who presented with sepsis thought to be from UTI, LAM, and gross hematuria in so bag, appearing to all be from prostatitis/cystits - Patient Problems (1) UTI (urinary tract infection) Current Visit: Yes Status: Acute Comment: - Hematuria and weakness on presentation, pyruia on UA, also with radiographic evidence of prostatits - CTX Day 08/29-14 on 2/12, checked with IDSA and CTX still appropriate for prostatitis, can transition to Bactrim or Cipro on d/c - Follow culture data - Holding on IVF 05/01, 05/02 as he has had better PO in take in the evenings (2) Hematuria Current Visit: Yes Status: Acute Code(s): R31.9 - HEMATURIA, UNSPECIFIED SNOMED Code(s): 97327459 Comment: - Gross hematuria on presentation, since resolved, seems trauma and infection related > intraluminal pathology - CTAP showing prostatitis and cystitis, may need urologic intervention as an outpatient but improving on CTX - Hemoglobin 13->11, and now stable (3) Urinary retention Current Visit: No Status: Acute Code(s): R33.9 - RETENTION OF URINE, UNSPECIFIED SNOMED Code(s): 574131190 Comment: - Chronic so since January, possibly related to underlying worsening dementia - Contnue tamsuloin, finasteride - Follows with Dr. Horvath, they can follow in the clinic, is to make appt on d/c (4) Atrial fibrillation Current Visit: No Status: Acute Code(s): I48.91 - UNSPECIFIED ATRIAL FIBRILLATION SNOMED Code(s): 66667320 Comment: - Off of AC 04/23 to frequent falls - Rate controlled with low dose digoxin (5) CAD (coronary artery disease) Current Visit: No Status: Acute Code(s): I25.10 - ATHSCL HEART DISEASE OF [place] CORONARY ARTERY W/O ANG PCTRS SNOMED Code(s): 78999774 Comment: - Asa alone, not on statin (didn't tolerate) or BB (6) Diabetes mellitus Current Visit: No Status: Acute Code(s): E11.9 - TYPE 2 DIABETES MELLITUS WITHOUT COMPLICATIONS SNOMED Code(s): 54173934 Comment: - HA1c 6.20 Jan 2019 - Continue FS, lispro ss - Carb consistent (7) CHINMAY (obstructive sleep apnea) Current Visit: No Status: Acute Code(s): G47.33 - OBSTRUCTIVE SLEEP APNEA ( ADULT) (PEDIATRIC) SNOMED Code(s): 33494364 Comment: - Not on home CPAP (8) Vascular dementia Current Visit: Yes Status: Acute Code(s): F01.50 - VASCULAR DEMENTIA WITHOUT BEHAVIORAL DISTURBANCE SNOMED Code(s): 297474642 Comment: Moderate to severe on detailed hx taking with his , she has been managing his incontinence for several months, he has shown disenterest in food and his mobility is profound -Oriented to self at baseline per -He does not have capacity to make medical decisions, though his still largely includes him -She is interested in an overall palliative approach, and he may benefit from PATH/AIM vs home hospice if in fact they decide that his MOLST is do not hospitlize, she is not sure she is at that point yet. -Pall care consult (9) DVT prophylaxis Current Visit: No Status: Acute Code(s): Z29.9 - ENCOUNTER FOR PROPHYLACTIC MEASURES, UNSPECIFIED SNOMED Code(s): 500471528 Comment: - SCDS for gross hematuria on presentation (10) DNR (do not resuscitate) Current Visit: Yes Status: Acute Status and Disposition: Inpatient PT Consult in place Carb Consistent diet, though poor PO intake Dispo: PT recommending STR, alterantively pt could go home with do not hospitlize on MOLST orders and convert to full home hospice if can manage caregiving-awaiting update from Dr Angulo today
[2019-05-03] MEDS: Insulin LISPRO* 1 UNITS UNIT SUBCUT SCH ×3 (08:14→17:12)
[2019-05-03] MEDS: Cyanocobalamin TAB* 500 MCG PO SCH (08:15)
[2019-05-03] MEDS: Multivitamins/Minerals TAB PO SCH (08:15)
[2019-05-03] MEDS: Aspirin 81 mg CHEW TAB* 81 MG TAB.CHEW PO SCH (08:15)
[2019-05-03] MEDS: Finasteride TAB* 5 MG PO SCH (08:15)
--- NOTE | 2019-05-03 11:50 | CONSULT ---
Palliative / Hospice Consult Ordering Provider: Ashley Hdz - PCP-Harriet Referal Reason: Goals of care/no bowel meds/no narcotics - Subjective Code Status: DNR Advance Directives Location: No Advance Directives MOLST Part A Completed: Yes - on chart MOLST Part E Completed:: Yes - on chart - History or Present Illness History or Present Illness: 89yo male with moderately severe vascular dementia presents to ER with weakness and hematuria. PMH is significant for NIDDM, CAD, DVT 2000 & 2007, BPH with chronic so catheter secondary to urinary retention, cardiomyopathy, sleep apnea was on CPAP but has lost weight and doesn't wear it any longer, arthritis , afib on ASA, sick sinus syndrome s/p ICD and thyroid nodule. 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 Studies CXR neg, ekg-ventricular paced, brain CT-moderate chronic small vessel ischemic disease, abd/pel CT-diffuse thickening of bladder wall prostatitis, H/H 11.2/33 , BUN/Cr 21/.77, egfr 95.6, Ca 7.9, alb 4, BC neg, UC normal kiko and P. Mirablis and INR 1.21. Pt admitted with sepsis secondary to UTI. Pt had prior ER visit 01/22 and hospitalization 01/24-01/27 then went to [facility] 01/27-03/09. All history is from and medical records. Lab Values: Abnormal Lab Results 05/02/19 05/02/19 05/03/19 12:15 17:13 07:34 POC Glucose (mg/dL) 234 H 163 H 151 H Laboratory Last Values WBC 6.0 10^3/uL (3.5-10.8) 05/01/19 05:31 RBC 3.59 10^6 /uL (4.18-5.48) L 05/01/19 05:31 Hgb 11.2 g/dL (14.0-18.0) L 05/01/19 05:31 Hct 33 % (42-52) L 05/01/19 05:31 MCV 93 fL (80-94) 05/01/19 05:31 MCH 31 pg (27-31) 05/01/19 05:31 MCHC 34 g/dL (31-36) 05/01/19 05:31 RDW 14 % (10-15) 05/01/19 05:31 Plt Count 176 10^3/uL (150-450) 05/01/19 05:31 MPV 7.5 fL (7.4-10.4) 05/01/19 05:31 Neut % (Auto) 67.5 % 05/01/19 05:31 Lymph % (Auto) 20.8 % 05/01/19 05:31 [place] % (Auto) 6.3 % 05/01/19 05:31 Eos % (Auto) 4.4 % 05/01/19 05:31 Baso % (Auto) 1.0 % 05/01/19 05:31 Absolute Neuts (auto) 4.0 10^3/ul (1.5-7.7) 05/01/19 05:31 Absolute Lymphs (auto) 1.3 10^3/ul (1.0-4.8) 05/01/19 05:31 Absolute Monos (auto) 0.4 10^3/ul (0-0.8) 05/01/19 05:31 Absolute Eos (auto) 0.3 10^3/ul (0-0.6) 05/01/19 05:31 Absolute Basos (auto) 0.1 10^3/ul (0-0.2) 05/01/19 05:31 Absolute Nucleated RBC 0.0 10^3/ul 05/01/19 05:31 Nucleated RBC % 0.0 05/01/19 05:31 INR (Anticoag Therapy) 1.21 (0.82-1.09) H 04/28/19 21:10 APTT 29.2 seconds (26.0-38.0) 04/28/19 21:10 Sodium 137 mmol/L (135-145) 05/02/19 06:18 Potassium 3.9 mmol/L (3.5-5.0) 05/02/19 06:18 Chloride 106 mmol/L (101-111) 05/02/19 06:18 Carbon Dioxide 25 mmol/L (22-32) 05/02/19 06:18 Anion Gap 6 mmol/L (2-11) 05/02/19 06:18 BUN 21 mg/dL (6-24) 05/02/19 06:18 Creatinine 0.77 mg/dL (0.67-1.17) 05/02/19 06:18 Est GFR ( Amer) 115.6 (>60) 05/02/19 06:18 Est GFR (Non-Af Amer) 95.6 (>60) 05/02/19 06:18 BUN/Creatinine Ratio 27.3 (8-20) H 05/02/19 06:18 Glucose 139 mg/dL (70-100) H 05/02/19 06:18 POC Glucose (mg/dL) 151 mg/dL (70-100) H 05/03/19 07:34 Lactic Acid 1.9 mmol/L (0.5-2.0) 04/28/19 21:10 Calcium 7.9 mg/dL (8.6-10.3) L 05/02/19 06:18 Magnesium 2.0 mg/dL (1.9-2.7) 04/29/19 00:54 Total Bilirubin 0.60 mg/dL (0.2-1.0) 04/28/19 21:10 AST 23 U/L (13-39) 04/28/19 21:10 ALT 50 U/L (7-52) 04/28/19 21:10 Alkaline Phosphatase 74 U/L (34-104) 04/28/19 21:10 Troponin I 0.03 ng/mL (<0.03) H* 05/01/19 05:31 Total Protein 7.4 g/dL (6.4-8.9) 04/28/19 21:10 Albumin 4.0 g/dL (3.2-5.2) 04/28/19 21:10 Globulin 3.4 g/dL (2-4) 04/28/19 21:10 Albumin/Globulin Ratio 1.2 (1-3) 04/28/19 21:10 Urine Color Grace 04/28/19 20:55 Urine Appearance Turbid 04/28/19 20:55 Urine pH 8.0 (5-9) 04/28/19 20:55 Ur Specific [place] 1.014 (1.010-1.030) 04/28/19 20:55 Urine Protein 3+(>=500 mg/dl) (Negative) A 04/28/19 20:55 Urine Ketones Negative (Negative) 04/28/19 20:55 Urine Blood 2+ (Negative) A 04/28/19 20:55 Urine Nitrate Negative (Negative) 04/28/19 20:55 Urine Bilirubin Negative (Negative) 04/28/19 20:55 Urine Urobilinogen Negative (Negative) 04/28/19 20:55 Ur Leukocyte Esterase 2+ (Negative) A 04/28/19 20:55 Urine WBC (Auto) 2+(11-20/hpf) (Absent) A 04/28/19 20:55 Urine RBC (Auto) 3+(>10/hpf) (Absent) A 04/28/19 20:55 Urine Bacteria Absent (Absent) 04/28/19 20:55 Urine Glucose Negative (Negative) 04/28/19 20:55 Digoxin 0.4 ng/ml (0.8-2.0) L 04/28/19 21:10 Influenza A (Rapid) Negative (Negative) 04/28/19 22:20 Influenza B (Rapid) Negative (Negative) 04/28/19 22:20 - Objective Active Medications: Acetaminophen (Tylenol Tab*) 650 mg PO Q4H PRN PRN Reason: MILD PAIN or TEMP > 100.4 Aspirin (Aspirin 81 Mg Chew Tab*) 81 mg PO DAILY [facility] Last Admin: 05/03/19 08:15 Dose: 81 mg Cyanocobalamin (Vitamin B12 Tab*) 500 mcg PO DAILY [facility] Last Admin: 05/03/19 08:15 Dose: 500 mcg Dextrose (D50w Syringe 50 Ml*) 12.5 gm IV PUSH .FOR FS < 60 - SS PRN PRN Reason: FS < 60 Digoxin (Lanoxin Tab*) 0.125 mg PO MoWeFr@1700 [facility] Last Admin: 05/01/19 17:16 Dose: 0.125 mg Finasteride (Proscar Tab*) 5 mg PO DAILY [facility] Last Admin: 05/03/19 08:15 Dose: 5 mg Ceftriaxone Sodium 1 gm/ (Sodium Chloride) 50 mls @ 100 mls/hr IVPB Q24H [facility] Last Admin: 05/02/19 20:32 Dose: 100 mls/hr Insulin Human Lispro (Humalog*) 0 units SUBCUT AC [facility]; Protocol Last Admin: 05/03/19 08:14 Dose: 1 unit Multivitamins/Minerals (Theragran/Minerals Tab*) 1 tab PO DAILY [facility] Last Admin: 05/03/19 08:15 Dose: 1 tab Ondansetron HCl (Zofran Inj*) 4 mg IV Q4H PRN PRN Reason: NAUSEA/VOMITING Tamsulosin HCl (Flomax Cap*) 0.4 mg PO BEDTIME [facility] Last Admin: 05/02/19 20:32 Dose: 0.4 mg Vital Signs: Vital Signs: Temp Pulse Resp BP Pulse Ox 97.6 F 76 16 118/64 97 05/03/19 11:15 05/03/19 11:15 05/03/19 11:15 05/03/19 11:15 05/03/19 11:15 Patient Weight: Weight 75.705 kg Intake and Output: Intake & Output 05/01/19 05/02/19 05/03/19 05/04/19 06:59 06:59 06:59 06:59 Intake Total 2529 1470 541 Output Total 1900 1395 700 Balance 629 75 -159 Intake: IV Fluids 1999 NS (0.9%) 1000 IVPB 50 50 61 ABX - CEFTRIAXONE 50 50 61 Oral 480 1420 480 Output: Urine 0 So 1900 1395 700 Other: Estimated Void Small Estimated Stool Amount Medium ADLs: Meal Record Start: 04/29/19 00: 18 Freq: DAILY@0900,1400,1800 Status: Active Protocol: Created 04/29/19 00:18 System (Rec: 04/29/19 00:18 System TELE-C10) Document 04/29/19 09:00 [id number] (Rec: 04/29/19 12:33 [id number] TELE-C10) Document 04/29/19 14:00 [id number] (Rec: 04/29/19 14:36 [id number] TELE-C10) Document 04/29/19 18:00 [id number] (Rec: 04/29/19 18:24 WGX0939 TELE-C01) Document 04/30/19 09:00 [id number] (Rec: 04/30/19 11:48 [id number] TELE-C09) Document 04/30/19 14:00 [id number] (Rec: 04/30/19 14:44 [id number] TELE-C09) Document 04/30/19 17:33 [id number] (Rec: 04/30/19 17:34 XTQ2211 TELE-C10) Document 05/01/19 09:00 APJ6245 (Rec: 05/01/19 12:06 [id number] TELE-C01) Document 05/01/19 14:00 TFW9221 (Rec: 05/01/19 14:12 UIW7117 TELE-M01) Document 05/01/19 18:00 [id number] (Rec: 05/01/19 19:42 [id number] TELE-C11) Document 05/02/19 09:00 [id number] (Rec: 05/02/19 13:46 [id number] TELE-C09) Document 05/02/19 14:00 KHG5032 (Rec: 05/02/19 14:38 OHR2013 TELE-C09) Document 05/02/19 18:53 [id number] (Rec: 05/02/19 18:54 DCL1557 TELE-C07) Intake and Output Start: 04/28/19 20: 42 Freq: Status: Active Protocol: Created 04/28/19 20:42 System (Rec: 04/28/19 20:42 System EDRM-C15) Document 04/28/19 23:02 WSI1205 (Rec: 04/28/19 23:02 TZW1462 ED-C18) Document 04/29/19 00:36 [id number] (Rec: 04/29/19 00:37 [id number] ED-C18) Intake and Output Start: 04/29/19 00: 18 Freq: DAILY@0600,1400,2200 Status: Active Protocol: Created 04/29/19 00:18 System (Rec: 04/29/19 00:18 System TELE-C10) Document 04/29/19 06:00 [id number] (Rec: 04/29/19 06:13 [id number] TELE-C10) Document 04/29/19 22:00 FOD0314 (Rec: 04/29/19 22:04 DSE7495 TELE-C11) Document 04/30/19 06:00 VTU5709 (Rec: 04/30/19 06:38 IGX3990 TELE-C11) Document 04/30/19 14:00 ECJ2853 (Rec: 04/30/19 14:45 FFA5092 TELE-C09) Document 04/30/19 22:00 PZB9088 (Rec: 04/30/19 22:32 RFK6840 TELE-C10) Document 05/01/19 05:55 BGL1628 (Rec: 05/01/19 06:05 [id number] TELE-C11) Document 05/01/19 14:00 SBK4267 (Rec: 05/01/19 14:11 TUZ7027 TELE-M01) Document 05/01/19 22:00 SET5209 (Rec: 05/01/19 22:19 RKU6280 TELE-C11) Document 05/02/19 05:55 XCW0598 (Rec: 05/02/19 05:58 AXQ5009 TELE-C11) Document 05/02/19 14:00 VMH9298 (Rec: 05/02/19 14:38 [id number] TELE-C09) Document 05/02/19 21:31 [id number] (Rec: 05/02/19 21:31 PCN6956 TELE-C07) Document 05/03/19 06:00 [id number] (Rec: 05/03/19 06:30 TELE-C33) Eyes: No Scleral Icterus Ears/Nose/Mouth/Throat: NL Teeth, Lips, Gums Neck: NL Appearance and Movements; NL JVP Cardiovascular: NL Sounds; No Murmurs; No JVD, - - irreg irreg Respiratory: Symmetrical Chest Expansion and Respiratory Effort Abdominal: NL Sounds; No Tenderness; No Distention Extremities: No Edema Neurological: - - Oriented to self and place - Assessment Assessment: 89yo male with moderately severe vascular dementia presents with sepsis secondary to UTI - Plan Consult Plan (MU): Palliative Plan: Long discussion with pt's about goals of care. wants to take him home and care for him. Her biggest concerns are transportation back to their home and what to do if he falls. She doesn't want to keep calling [facility] to pick him up. She would like him to receive PT but doesn't want him to go to [facility] she would rather have [facility] come for PT. She is interested in a hospital bed and maybe a wheelchair. notes that he has lost weight over last several months. Encouraged her to also call the office of the aging and ask about resources to help with falling. She is also interested in PATH referral. Hospice information/brochure given. She is interested in hospice but would like the trial of PT to make him more manageable at home. Spoke with SW and will make referral to [facility] for Fall Prevention program. Support and reassurance given. Information relayed to CM. Pt has received OT services in the hospital but pt didn't fully participate. Pt eligibility would be moderate severe/severe dementia, CAD, mulitple falls and generalized decline. KPS 40%, PPS 40% - Time On Unit Date of Evaluation: 05/03/19 Hospice Consult Time in: 10:30 Hospice Consult Time Out: 11:30 Hospice Consult Time Total: 60 > 50% of Time Spend In Counseling or Coordinating Care: Yes
--- NOTE | 2019-05-03 15:55 | DS ---
DISCHARGE SUMMARY: DATE OF ADMISSION: 04/28/19 DATE OF DISCHARGE: 05/04/19 PRIMARY CARE PROVIDER: Dr. Jewell Larios. DISPOSITION AT THE TIME OF DISCHARGE: Stable to be discharged to home with VNS and PT services. PRIMARY DIAGNOSES: 1. Prostatitis. 2. Cystitis. 3. Gross hematuria. 4. Sepsis, resolved. SECONDARY DIAGNOSES: 1. Recent indwelling chronic Gastelum catheter placed in January 2019 secondary to chronic urinary retention in the setting of enlarged prostate. 2. Vascular dementia. 3. Nap-azusonk-qgsandzin diabetes. 4. Coronary artery disease. 5. Atrial fibrillation, on digoxin, not on anticoagulation secondary to frequent falls. 6. Sick sinus syndrome, status post pacemaker and ICD. 7. History of deep vein thrombosis. 8. Obstructive sleep apnea, not on CPAP. MEDICATIONS AT THE TIME OF DISCHARGE: 1. Aspirin 81 mg p.o. daily. 2. Cyanocobalamin 500 mcg p.o. daily. 3. Digoxin 0.125 mg p.o. 3 times weekly. 4. Finasteride 5 mg p.o. daily. 5. Glimepiride 0.5 mg p.o. daily. 6. Multivitamin 1 tab p.o. daily. 7. Tamsulosin 0.4 mg p.o. at bedtime. 8. Ciprofloxacin 500 mg p.o. q.12 hours for an additional 28 days, status post discharge. HISTORY OF PRESENT ILLNESS AND HOSPITAL COURSE: An 89-year-old male with above past medical history, who presented to the emergency room on 04/28/19 with complaint of gross hematuria in his Gastelum bag, also with lethargy, frequent falls. In the emergency room, he was found to be septic with tachypnea, leukocytosis and initial tachycardia, presumed to be secondary to urinary source secondary to gross hematuria in the bag. He was given fluid bolus and antibiotics. He also had a mildly elevated troponin. The hospitalist team was asked to evaluate the patient and his hospital course by problem is as follows: 1. Sepsis is a secondary urinary source from cystitis and ultimately a CT scan showed prostatitis and his sepsis resolved by hospital day 1 with administration of fluid bolus and antibiotics. 2. Prostatitis and cystitis. CT scan was done on hospital day 2 that showed gross prostatitis and cystitis with stranding. Urology was reconsulted who actually found that the patient had negative cystoscope in March 2019 with no evidence of bladder tumor and this malignancy was less likely. Cultures from urinary catheter were unfortunately never sent from the emergency room and thus we are treating empirically for presumed gram-negative source. The patient did very well on ceftriaxone, was transitioned to ciprofloxacin for a total of 4 weeks for a treatment of prostatitis and cystitis with known indwelling catheter. He was unable to take Bactrim secondary to its interaction with digoxin. The patient has followup to be arranged with Dr. Cardenas's office a month after discharge to determine if the patient needs additional antibiotics or not. 3. Gross hematuria as per above secondary to infection over malignancy. 4. Weakness in the setting of vascular dementia. The patient's reports the subacute declined since January. He has diagnosis from Neurology of vascular dementia and at baseline, his actually reports that he is oriented to himself, place, occasionally date and is actually incontinent of stool at times. He has had significant decrease in his activity, interest and food and meaningful interactions with the family. 5. Long goals of care discussions were had with the family along with palliative care discussion as they can terms with his worsening disability, which is often seen in the context of multimorbidity. The patient does not meet any criteria for acute hospice, but they are interested in PATH program. Initially, short-term rehab was recommended for the patient, although the patient's felt strongly that he wanted to return to home as he had just been to short-term rehab and while he did get some improvement in his mobility, was profoundly depressed there. He is DNR/DNI very clearly and MOLST form is completed. They are even contemplating possibly do not hospitalize the next time he has an infection, although she was not ready to make that decision at this time and wants to continue conversations with the [facility]IM and PATH program for which referrals were placed. 6. Diabetes type 2, well controlled. Continue glimepiride. 7. Coronary artery disease. Continued his aspirin. 8. Atrial fibrillation. He is on digoxin and rate controlled. He is not on any anticoagulation secondary to recurrent falls. 9. CHINMAY. The patient had been using CPAP up until [facility] from the last hospitalization that he had in January 2019, although he does not wish to continue this anymore and has access to 2 L of oxygen at night via nasal cannula, which he is sometimes compliant with. He has not needed any oxygen during the day during this hospitalization. 10. BPH. He is on finasteride and tamsulosin. 11. DVT prophylaxis was with SCDs during this hospitalization secondary to his gross hematuria, which cleared by hospital day 3. On day of discharge, the patient is tolerating diet. He is ambulating with gait belt, max assist with walker, which the patient's adamantly reports is his baseline. She feels very strongly to bring him home, even though short-term rehabilitation was recommended by Physical Therapy. We would try to optimize this patient's success in the home by offering V[facility], PT services and a referral to AIM and PATH. Ultimately, his understands that there is a significant risk in him falling and failing in the home, although she reports to us that she is willing to take that risk at this time to avoid placement in short-term rehab where she found that he declined from a mental status. LABS AND STUDIES DONE DURING THIS HOSPITALIZATION: Labs on 05/01/19: White blood cell count 6, hemoglobin 11.2, hematocrit 33, platelets 176. BMP: Sodium 137, potassium 3.9, chloride 106, carbon dioxide 25, anion 6, BUN 21, creatinine 0.77 and glucose 139. Imaging includes brain CT, which shows no acute intracranial pathology. EKG which shows atrial fibrillation with no signs of acute ischemia. Abdomen and pelvis CT which showed evidence of gross prostatitis and cystitis, but no evidence of acute malignancy. CONSULTANTS DURING THIS HOSPITALIZATION: Included a curbside to Urology, Dr. Caro's office was called, although they did not complete a formal consultation in this hospitalization and Dr. Camila Angulo from Palliative Care. ITEMS TO FOLLOW UP ON STATUS POST DISCHARGE: 1. Prostatitis and cystitis. The recommendation from [facility] is 4 to 6 weeks of antibiotics. Unfortunately, the patient is only able to take ciprofloxacin secondary to being on digoxin and this can be continued for initially total of 28 days status post discharge, although should follow up with Urology to determine the total length of course. We have no culture data to guide treatment unfortunately and this falls under empiric treatment. The patient has significant improvement in his wakefulness and resolution of sepsis and ceftriaxone and is presumed to be gram negative. 2. Overall goals of care. The patient is DNR/DNI. He has at least moderate vascular dementia and the patient's would like to meet with PATH and AIM team. He does not meet criteria for full hospice and at this point, she is not ready to sign a do not hospitalize order on his MOLST form. She prefers to bring him home secondary to short-term rehab placement being depressing for him in the past even though he is max assist at the time of discharge, which I would optimize their chances of success with VNS and PT, although his is counseled strongly that there is a significant risk of fall and declined in the home as his skilled needs maybe greater than she is able to offer. She understands that she is willing to take that risk and will continue with her outpatient supports as are ordered. TIME SPENT: 65 minutes was spent on the planning of this discharge with over half of that was spent directly at the bedside of the patient providing direct patient care. Plan of care was discussed with the patient's , who has no further questions. If there are any questions about the care of this patient during this hospitalization, please do not hesitate to reach out and contact me directly, my cell phone is [phone]. [id number]/[facility] #: [id number] MYRIAM
[2019-05-03] MEDS: Digoxin TAB* 0.125 MG PO SCH (17:12)
[2019-05-03] MEDS: Tamsulosin CAP* 0.4 MG PO SCH (21:28)
[2019-05-03] MEDS: Ciprofloxacin TAB* 500 MG PO SCH (21:29)
[2019-05-04] MEDS: Insulin LISPRO* 1 UNITS UNIT SUBCUT SCH ×2 (07:29→12:33)
[2019-05-04] MEDS: Ciprofloxacin TAB* 500 MG PO SCH (08:41)
[2019-05-04] MEDS: Cyanocobalamin TAB* 500 MCG PO SCH (08:41)
[2019-05-04] MEDS: Aspirin 81 mg CHEW TAB* 81 MG TAB.CHEW PO SCH (08:41)
[2019-05-04] MEDS: Finasteride TAB* 5 MG PO SCH (08:41)
[2019-05-04] MEDS: Multivitamins/Minerals TAB PO SCH (08:41)
[2019-05-04 12:06] VITALS: BP 118/92
== END 2019-05-04 13:25 | disposition home health service (06) | DRG 872 ==
LOC: ED 20:34 → MEDTELE 23:43 → OBSVTOIN 04-29 12:01
PROVIDERS: ADMIT Internal Medicine; ATTEND Internal Medicine
DX: A41.9 Sepsis, unspecified organism (principal); I42.9 Cardiomyopathy, unspecified; N17.9 Acute kidney failure, unspecified; I49.5 Sick sinus syndrome; B96.4 Proteus (mirabilis) (morganii) as the cause of diseases classified elsewhere; N41.3 Prostatocystitis; I25.10 Atherosclerotic heart disease of native coronary artery without angina pectoris; E11.40 Type 2 diabetes mellitus with diabetic neuropathy, unspecified; N40.1 Benign prostatic hyperplasia with lower urinary tract symptoms; R33.8 Other retention of urine; R53.1 Weakness; Z66 Do not resuscitate; I48.91 Unspecified atrial fibrillation; G20 Parkinson's disease; F02.80 Dementia in other diseases classified elsewhere, unspecified severity, without behavioral disturbance, psychotic disturbance, mood disturbance, and anxiety; G47.33 Obstructive sleep apnea (adult) (pediatric); R06.82 Tachypnea, not elsewhere classified; R31.0 Gross hematuria; R74.8 Abnormal levels of other serum enzymes; E04.1 Nontoxic single thyroid nodule; Z86.718 Personal history of other venous thrombosis and embolism; Z95.810 Presence of automatic (implantable) cardiac defibrillator; Z79.82 Long term (current) use of aspirin; Z79.899 Other long term (current) drug therapy; Z88.8 Allergy status to other drugs, medicaments and biological substances; Z91.013 Allergy to seafood; Z82.3 Family history of stroke; Z82.49 Family history of ischemic heart disease and other diseases of the circulatory system; Z87.891 Personal history of nicotine dependence
CPT/HCPCS: 36415; 70450; 71045; 74177; 80048; 80053; 80162; 81003; 81015; 83605; 83735; 84484; 85025; 85610; 85730; 87040; 87077; 87086; 87184; 87186; 93005; 96361; 96365; 99284; A9270-GY; J0696; Q9967

== ENCOUNTER 2020-07-26 20:10 | Inpatient (IN) ==
[2020-07-26] MEDS ORDERED: NS 0.9% 1000 ml BAG 1,000 ML IV ONE (20:32)
[2020-07-26 20:45] LABS: Hematocrit 38 % (42-52); Hemoglobin 13.1 g/dL (14.0-18.0); Mean Corpuscular HGB Conc 34 g/dL (31-36); Mean Corpuscular Hemoglobin 32 pg (27-31); Mean Corpuscular Volume 93 fL (80-94); Mean Platelet Volume 8.3 fL (7.4-10.4); Platelet Count 126 10^3/uL (150-450); Red Blood Count 4.13 10^6 /uL (4.18-5.48); Red Cell Distribution Width 14 % (10-15); White Blood Count 24.2 10^3/uL (3.5-10.8)
[2020-07-26 20:46] LABS: ABS Eosinophils 0.1 10^3/ul (0-0.6); ABS Lymphocytes 0.4 10^3/ul (1.0-4.8); ABS Monocytes 1.2 10^3/ul (0-0.8); ABS Neutrophils 22.5 10^3/ul (1.5-7.7); Eosinophil % 0.2 %; Lymphocyte % 1.7 %; Nucleated Red Blood Cells % 0.1
[2020-07-26] MEDS ORDERED: cefTRIAXone 1 gm/50 mL NS BAG 1 GM/50 ML BAG IV ONE (20:56)
[2020-07-26 20:57] LABS: ALT 15 U/L (7-52); AST 24 U/L (13-39); Albumin 3.6 g/dL (3.2-5.2); Albumin/Globulin Ratio 1.4 (1-3); Alkaline Phosphatase 47 U/L (34-104); Anion Gap 14 mmol/L (2-11); Blood Urea Nitrogen 31 mg/dL (6-24); CO2 Carbon Dioxide 22 mmol/L (22-32); Calcium 9.2 mg/dL (8.6-10.3); Chloride 102 mmol/L (101-111); EGFR African American 52.2 (>60); EGFR Non-African American 43.2 (>60); Globulin 2.5 g/dL (2-4); Glucose 206 mg/dL (70-100); Potassium 4.1 mmol/L (3.5-5.0); Sodium 138 mmol/L (135-145); Total Protein 6.1 g/dL (6.4-8.9)
[2020-07-26 20:59] LABS: Troponin I 0.33 ng/mL (<0.03)
[2020-07-26 21:24] LABS: TSH Ultra Thyroid Stim Horm 1.18 mcIU/mL (0.34-5.60)
[2020-07-26] MEDS: NS 0.9% 1000 ml BAG 2,000 ML IV ONE ×2 (21:25→23:06)
[2020-07-26] MEDS ORDERED: Iodixanol (CONTRAST) 320 MG/ML 100 ML SDV IV ONE (21:25)
[2020-07-26 22:07] LABS: Urine Appearance Turbid; Urine Specific Gravity 1.016 (1.002-1.030)
[2020-07-26 22:09] LABS: Urine Color Red
[2020-07-26 22:15] LABS: Urine Bacteria Absent (Absent); Urine Red Blood Cell 3+(>10/hpf) (Absent); Urine White Blood Cell 3+(>20/hpf) (Absent)
[2020-07-27 00:41] LABS: Urine Appearance Cloudy; Urine Bilirubin Negative (Negative); Urine Blood 3+ (Negative); Urine Color Yellow; Urine Glucose Negative (Negative); Urine Ketones Negative (Negative); Urine Nitrite Negative (Negative); Urine Protein 2+(100 mg/dL) (Negative); Urine Specific Gravity 1.057 (1.002-1.030); Urine Urobilinogen Negative (Negative)
[2020-07-27 00:48] LABS: Urine Bacteria Absent (Absent); Urine Red Blood Cell 3+(>10/hpf) (Absent); Urine White Blood Cell 2+(11-20/hpf) (Absent)
[2020-07-27] MEDS ORDERED: NS 0.9% 1000 ml BAG 1,000 ML IV SCH (01:00)
[2020-07-27] MEDS ORDERED: Dextrose 50% Syringe 50 ml 25 GM/50 ML SYRINGE IV PUSH PRN (01:02)
[2020-07-27 01:33] LABS: Digoxin 0.6 ng/ml (0.8-2.0)
[2020-07-27 01:42] LABS: Troponin I 0.27 ng/mL (<0.03)
[2020-07-27] MEDS ORDERED: Cefepime 2 GM in Dextrose 2 GM/50 ML BAG IV SCH (02:00)
[2020-07-27] MEDS ORDERED: NS 0.9% 1000 ml BAG 1,000 ML IV ONE (02:38)
[2020-07-27] MEDS: NS 0.9% 1000 ml BAG 1,000 ML IV SCH ×2 (10:23→14:38)
[2020-07-27] MEDS: cefTRIAXone 1 gm/50 mL NS BAG 1 GM/50 ML BAG IVPB SCH (14:49)
[2020-07-27] MEDS: Dextran 70/Hypromellose Tears Eye Drops 15 ml BTL (for Artificials Tears) BOTH EYES PRN (14:49)
[2020-07-27] MEDS ORDERED: Lactated Ringers 1000 ml BAG 1,000 ML IV SCH (19:00)
[2020-07-28 06:26] LABS: EGFR African American 71.2 (>60); EGFR Non-African American 58.8 (>60); Potassium 4.1 mmol/L (3.5-5.0)
[2020-07-28 06:28] LABS: ABS Lymphocytes 0.8 10^3/ul (1.0-4.8); ABS Monocytes 0.8 10^3/ul (0-0.8); ABS Neutrophils 12.7 10^3/ul (1.5-7.7); Eosinophil % 0.2 %; Hematocrit 37 % (42-52); Hemoglobin 12.1 g/dL (14.0-18.0); Lymphocyte % 5.5 %; Mean Corpuscular HGB Conc 33 g/dL (31-36); Mean Corpuscular Hemoglobin 31 pg (27-31); Mean Corpuscular Volume 94 fL (80-94); Mean Platelet Volume 8.3 fL (7.4-10.4); Platelet Count 88 10^3/uL (150-450); Red Blood Count 3.88 10^6 /uL (4.18-5.48); Red Cell Distribution Width 14 % (10-15); White Blood Count 14.4 10^3/uL (3.5-10.8)
[2020-07-28] MEDS: cefTRIAXone 1 gm/50 mL NS BAG 1 GM/50 ML BAG IVPB SCH (14:38)
[2020-07-28] MEDS: Dextran 70/Hypromellose Tears Eye Drops 15 ml BTL (for Artificials Tears) BOTH EYES PRN (14:39)
[2020-07-28] MEDS: NS 0.9% 1000 ml BAG 1,000 ML IV SCH (15:43)
[2020-07-28] MEDS: Enoxaparin 80 MG/0.8 ML SYR SUBCUT SCH (22:08)
[2020-07-29] MEDS: NS 0.9% 1000 ml BAG 1,000 ML IV SCH (00:27)
[2020-07-29 06:18] LABS: Calcium 7.8 mg/dL (8.6-10.3); EGFR African American 75.6 (>60); EGFR Non-African American 62.5 (>60); Potassium 3.9 mmol/L (3.5-5.0)
[2020-07-29 06:21] LABS: ABS Lymphocytes 0.8 10^3/ul (1.0-4.8); ABS Monocytes 0.7 10^3/ul (0-0.8); ABS Neutrophils 10.4 10^3/ul (1.5-7.7); Eosinophil % 0.2 %; Hematocrit 37 % (42-52); Hemoglobin 12.2 g/dL (14.0-18.0); Lymphocyte % 7.1 %; Mean Corpuscular HGB Conc 33 g/dL (31-36); Mean Corpuscular Hemoglobin 32 pg (27-31); Mean Corpuscular Volume 96 fL (80-94); Mean Platelet Volume 9.4 fL (7.4-10.4); Nucleated Red Blood Cells % 0.2; Platelet Count 92 10^3/uL (150-450); Red Blood Count 3.86 10^6 /uL (4.18-5.48); Red Cell Distribution Width 14 % (10-15); White Blood Count 11.9 10^3/uL (3.5-10.8)
[2020-07-29] MEDS: Enoxaparin 80 MG/0.8 ML SYR SUBCUT SCH ×2 (09:08→20:55)
[2020-07-29] MEDS: cefTRIAXone 1 gm/50 mL NS BAG 1 GM/50 ML BAG IVPB SCH (14:24)
[2020-07-29] MEDS ORDERED: Iodixanol (CONTRAST) 320 MG/ML 100 ML SDV IV ONE (15:12)
[2020-07-30 04:59] LABS: Hematocrit 37 % (42-52); Hemoglobin 12.5 g/dL (14.0-18.0); Mean Corpuscular HGB Conc 34 g/dL (31-36); Mean Corpuscular Hemoglobin 32 pg (27-31); Mean Corpuscular Volume 94 fL (80-94); Mean Platelet Volume 8.8 fL (7.4-10.4); Platelet Count 112 10^3/uL (150-450); Red Blood Count 3.95 10^6 /uL (4.18-5.48); Red Cell Distribution Width 14 % (10-15); White Blood Count 8.8 10^3/uL (3.5-10.8)
[2020-07-30 05:22] LABS: ABS Eosinophils 0.1 10^3/ul (0-0.6); ABS Lymphocytes 1.1 10^3/ul (1.0-4.8); ABS Monocytes 0.8 10^3/ul (0-0.8); ABS Neutrophils 6.7 10^3/ul (1.5-7.7); Eosinophil % 1.4 %; Lymphocyte % 12.9 %; Nucleated Red Blood Cells % 0.1
[2020-07-30 05:28] LABS: Calcium 8.1 mg/dL (8.6-10.3); EGFR African American 91.6 (>60); EGFR Non-African American 75.7 (>60); Magnesium 2.1 mg/dL (1.9-2.7); Potassium 3.6 mmol/L (3.5-5.0)
[2020-07-30] MEDS: Enoxaparin 80 MG/0.8 ML SYR SUBCUT SCH ×2 (07:29→20:51)
[2020-07-30] MEDS: cefTRIAXone 1 gm/50 mL NS BAG 1 GM/50 ML BAG IVPB SCH (14:46)
[2020-07-31] MEDS ORDERED: Magnesium Hydroxide LIQ 30 ML UDC PO PRN (08:50)
[2020-07-31] MEDS ORDERED: Senna TAB 8.6 mg TAB PO PRN (08:50)
[2020-07-31] MEDS: Enoxaparin 80 MG/0.8 ML SYR SUBCUT SCH ×2 (09:52→21:18)
[2020-07-31] MEDS: cefTRIAXone 1 gm/50 mL NS BAG 1 GM/50 ML BAG IVPB SCH (17:07)
[2020-07-31] MEDS ORDERED: NS 0.9% 1000 ml BAG 1,000 ML IV SCH (17:15)
[2020-08-01 05:46] LABS: ABS Eosinophils 0.2 10^3/ul (0-0.6); ABS Lymphocytes 1.1 10^3/ul (1.0-4.8); ABS Monocytes 0.5 10^3/ul (0-0.8); ABS Neutrophils 3.8 10^3/ul (1.5-7.7); Eosinophil % 3.2 %; Hematocrit 34 % (42-52); Hemoglobin 11.7 g/dL (14.0-18.0); Lymphocyte % 19.6 %; Mean Corpuscular HGB Conc 35 g/dL (31-36); Mean Corpuscular Hemoglobin 32 pg (27-31); Mean Corpuscular Volume 94 fL (80-94); Mean Platelet Volume 8.5 fL (7.4-10.4); Nucleated Red Blood Cells % 0.1; Platelet Count 146 10^3/uL (150-450); Red Blood Count 3.63 10^6 /uL (4.18-5.48); Red Cell Distribution Width 14 % (10-15); White Blood Count 5.6 10^3/uL (3.5-10.8)
[2020-08-01 06:08] LABS: Calcium 7.6 mg/dL (8.6-10.3); EGFR African American 108.8 (>60); EGFR Non-African American 89.9 (>60); Magnesium 1.8 mg/dL (1.9-2.7); Potassium 3.4 mmol/L (3.5-5.0)
[2020-08-01] MEDS ORDERED: KCL 20 MEQ/100 ML IVPREMIX 20 MEQ/100 ML BAG IV ONE (07:14)
[2020-08-01] MEDS ORDERED: Magnesium Sulfate 2 gm BAG 2 GM/50 ML BAG IVPB ONE (07:14)
[2020-08-01] MEDS: Enoxaparin 80 MG/0.8 ML SYR SUBCUT SCH (09:38)
[2020-08-01 12:16] VITALS: BP 119/61
[2020-08-01] MEDS: cefTRIAXone 1 gm/50 mL NS BAG 1 GM/50 ML BAG IVPB SCH (15:02)
== END 2020-08-01 16:27 | DRG 698 ==
LOC: ED 20:10 → MEDTELE 07-27 00:39
PROVIDERS: ADMIT Pediatrics; ATTEND Internal Medicine